=== PATIENT | male | born 1960 | race Caucasian/White ===

== ENCOUNTER 2020-10-03 17:10 | Emergency (ER) | payer OTHER, SELFPAY ==
[2020-10-03] VITALS (17 sets, daily range): BP systolic 89–116; BP diastolic 57–70; PULSE 56–98; RESP 15–24; TEMP 36.8; O2SAT 89–97
--- NOTE | 2020-10-03 17:46 | DI.CT.S_ITS ---
PROCEDURE: CT CHEST ABD PEL W CON INDICATIONS: Trauma TECHNIQUE: After the administration of intravenous contrast, 5 mm thick sections acquired from the lung apices to the symphysis. 2.5 mm thick coronal and sagittal reformats were acquired. Additional 7 mm thick coronal maximum intensity projection (MIP) reformats acquired through the lungs. Optional 10-minute delayed imaging may be performed from the kidneys to the bladder. For radiation dose reduction, the following was used: automated exposure control, adjustment of mA and/or kV according to patient size. COMPARISON: None. FINDINGS: Image quality: Excellent. CHEST: Lungs: Bibasilar atelectasis is present dependently. No pneumothorax or hemothorax. Central and peripheral airways appear patent and normal in caliber. Mediastinum: No mediastinal hematomas. Heart size is normal. No pericardial effusion. Thoracic aorta and pulmonary arteries demonstrate normal size and enhancement. No mediastinal or hilar adenopathy. Esophagus is normal in caliber. No hiatal hernia. Chest wall: No rib fractures. No subcutaneous emphysema. No axillary or supraclavicular adenopathy. Thyroid gland is within normal limits . ABDOMEN: Solid organs: Liver is normal in size and enhancement, without lacerations. Gallbladder is within normal limits. Biliary system is non-dilated. Pancreas enhances normally, without transection. Spleen is normal in size and enhancement, without lacerations. No adrenal hematomas. Bilateral renal cysts. Both kidneys otherwise enhance normally, without hydronephrosis or lacerations. Peritoneum and bowel: No free fluid or air. Unenhanced bowel loops demonstrate normal wall thickness and caliber. Nodes and vessels: No retroperitoneal or mesenteric adenopathy. Aorta and inferior vena cava are normal in size and enhancement. Miscellaneous: No ventral hernias. PELVIS: Genitourinary: Bladder wall thickness is normal. Miscellaneous: No inguinal hernias or adenopathy. Bones: Mildly displaced left sacral fracture. Moderate acute wedging of the L1 vertebral body, associated with right awfully 10 mm of retropulsion at the superior L1 level, and severe canal stenosis, and flattening of the conus medullaris. IMPRESSION: 1. No evidence of soft tissue injury to the chest, abdomen, nor pelvis. 2. Mildly displaced left sacral fracture. 3. Moderate acute compression fracture of L1, associated with retropulsion and severe canal stenosis with cord flattening. Dictated by: Alin Medellin M.D. on 10/03/2020 at 18:39 Approved by: Alin Medellin M.D. on 10/03/2020 at 18:43
--- NOTE | 2020-10-03 17:46 | DI.CT.S_ITS ---
PROCEDURE: CT CERVICAL SPINE WO CON INDICATIONS: Trauma TECHNIQUE: Noncontrast 3 mm thick sections acquired from the skull base to the T4 level. Sagittal and coronal reformats were then constructed. For radiation dose reduction, the following was used: automated exposure control, adjustment of mA and/or kV according to patient size. COMPARISON: None. FINDINGS: Image quality: Excellent. Bones: No fractures or dislocations. Visualized superior ribs are intact. Soft tissues: Prevertebral soft tissues are normal in thickness. No paravertebral hematomas. No apical pneumothoraces. IMPRESSION: No fracture. Dictated by: Alin Medellin M.D. on 10/03/2020 at 18:31 Approved by: Alin Medellin M.D. on 10/03/2020 at 18:33
--- NOTE | 2020-10-03 17:46 | DI.CT.S_ITS ---
PROCEDURE: CT HEAD/BRAIN WO CON INDICATIONS: Trauma TECHNIQUE: Noncontrast 4.5 mm thick angled axial sections acquired from the foramen magnum to the vertex, with coronal and sagittal reformats. For radiation dose reduction, the following was used: automated exposure control, adjustment of mA and/or kV according to patient size. COMPARISON: None. FINDINGS: Image quality: Excellent. CSF spaces: Basal cisterns are patent. No extra-axial fluid collections. The ventricles are symmetric in size and shape. Cavum septum vergae. Brain: No intracranial bleeds or masses. Small chronic left cerebellar infarct. There is cerebral volume loss for age, with resultant ventricular and sulcal prominence. There are periventricular and deep white matter chronic small vessel ischemic changes. There is intracranial internal carotid artery atherosclerosis. Skull and face: Calvarium and visualized facial bones appear intact, without suspicious lesions. Sinuses: Visualized sinuses and mastoids are clear. IMPRESSION: 1. No acute process. 2. Small chronic left cerebellar infarct. Dictated by: Alin Medellin M.D. on 10/03/2020 at 18:30 Approved by: Alin Medellin M.D. on 10/03/2020 at 18:31
[2020-10-03 17:49] LABS: Add Manual Diff / Slide Review NO; Basophils Absolute Auto 0 /uL (0-100); Basophils Percent Auto 0.4 % (0-2); Eosinophils Absolute Auto 0 /uL (0-450); Eosinophils Percent Auto 0.3 % (2-4); Hematocrit 44.3 % (41-53); Lymphocytes Absolute Auto 800 /uL (1100-4500); Lymphocytes Percent Auto 6.4 % (25-40); Mean Corpuscular Hemoglobin 31.4 PG (26-34); Mean Corpuscular Volume 92.3 fL (80-100); Monocytes Absolute Auto 600 /uL (0-900); Monocytes Percent Auto 4.6 % (3-14); Neutrophils Absolute Auto 10600 /uL (1500-7000); Neutrophils Percent Auto 88.3 % (50-75); Platelet Count 163 X10^3/uL (150-400)
[2020-10-03 17:53] LABS: Prothrombin Time 12.1 SECONDS (10.1-12.7)
[2020-10-03 17:56] LABS: PTT Partial Thromboplastin Tim 26 SECONDS (26.4-36.2)
[2020-10-03 17:58] LABS: Alanine Aminotransferase 28 IU/L (<50); Albumin 4.1 g/dL (3.5-5.0); Albumin Globulin Ratio 1.4 (1.0-2.8); Alkaline Phosphatase 73 U/L (38-126); Aspartate Aminotransferase 46 IU/L (17-59); BUN Creatinine Ratio 28.4 (6-22); Bilirubin Total 0.9 mg/dL (0.2-1.3); Blood Urea Nitrogen 23 mg/dL (9-20); Carbon Dioxide 29 mmol/L (22-32); Chloride 102 mmol/L (98-107); Estimated Glomerular Filt Rate > 60.0 mL/min (>60); Globulin 2.9 g/dL (1.7-4.1); Glucose 135 mg/dL (80-110); HEMOLYSIS < 15 (0-50); Lipase 98 U/L (23-300); Potassium 3.7 mmol/L (3.4-5.1); Sodium 135 mmol/L (137-145)
[2020-10-03 17:59] LABS: Lactate (Lactic Acid) 2.1 mmol/L (0.7-2.1)
[2020-10-03 18:03] LABS: Ethanol (ETOH) < 10 mg/dL
--- NOTE | 2020-10-03 18:08 | DI.RAD.S_ITS ---
PROCEDURE: XR FEMUR LT MIN 2V INDICATIONS: fell off roof, pain left hip/femur TECHNIQUE: To views of the femur were acquired. COMPARISON: [facility], CT, CT CHEST ABD PEL W CON, 10/03/2020, 17:47. FINDINGS: Bones: No fractures or dislocations. No suspicious bony lesions. Left knee arthroplasty. Soft tissues: No suspicious soft tissue calcifications or masses. IMPRESSION: No acute fracture. No osseous lesion. If symptoms and/or clinical suspicion for pathology persist, further assessment with repeat, or advanced imaging (e.g., CT, MRI, or bone scan) may be helpful for further assessment. Dictated by: Alin Medellin M.D. on 10/03/2020 at 18:38 Approved by: Alin Medellin M.D. on 10/03/2020 at 18:39
[2020-10-03] MEDS: MORPHINE 4 MG/ML INJ IV ×2 (18:38→20:34)
[2020-10-03] MEDS: ONDANSETRON 4 MG/2 ML INJ IV (18:38)
--- NOTE | 2020-10-03 19:03 | ED_ITS ---
HPI - General Adult General Chief complaint: Trauma Stated complaint: fell off roof Time Seen by Provider: 10/03/20 17:45 Source: patient Mode of arrival: Ambulatory Limitations: no limitations History of Present Illness HPI narrative: Patient is a 60-year-old otherwise healthy male came in by private vehicle after sustaining a fall while on a ladder. He was 1 story off the ground cleaning his gutters when the ladder fell. He stated that he did not hit his head. There was no loss of consciousness. He was unsure exactly how he landed. He was able to ambulate somewhat afterwards but it was very difficult secondary to pain in his left leg in his lower back. He is not on anticoagulation. Has not tried anything for symptoms prior to arrival. Related Data Home Medications Medication Instructions Recorded Confirmed aspirin [Adult Low Dose Aspirin] 81 mg PO QAM 10/03/20 10/03/20 fluoxetine 60 mg PO DAILY 10/03/20 10/03/20 Allergies Allergy/AdvReac Type Severity Reaction Status Date / Time celecoxib Allergy Unknown Verified 10/03/20 18:05 chlorhexidine Allergy Unknown Verified 10/03/20 18:05 Review of Systems Constitutional Constitutional: Denies fatigue, Denies fever(s), Denies frequent falls and Denies headache(s) Eyes Eyes: Denies blurry vision and Denies change in vision ENT Ears, Nose, Mouth, and Throat: Denies vertigo, Denies dizziness, Denies headache(s), Denies neck mass and Denies sore throat Cardiovascular Cardiovascular: Denies chest pain and Denies dyspnea Respiratory Respiratory: Denies cough, Denies pain on inspiration, Denies pain with cough and Denies dyspnea Gastrointestinal Gastrointestinal: Denies abdominal pain, Denies nausea and Denies vomiting Genitourinary Genitourinary: Denies dysuria and Denies testicular pain Genitourinary: Denies dysuria Comments: He did urinate 1 time after the fall prior to arrival Musculoskeletal Musculoskeletal: Reports arthralgias (Left leg pain), Reports back pain, Denies numbness, Denies stiffness and Denies tingling Integumentary/Breasts Skin/Breast: Denies lesions and Denies rash Neurologic Neurologic: Denies behavioral changes, Denies confusion, Denies vertigo, Denies dizziness, Denies frequent falls, Denies headache(s), Denies numbness and Denies tingling Psychiatric Psychiatric: Denies behavioral changes, Denies confusion and Denies depression Endocrine Endocrine: Denies fatigue Hematologic/Lymphatic Hematologic/Lymphatic: Denies easy bleeding and Denies easy bruising Allergic/Immunologic Allergic/Immunologic: Denies urticaria Patient History Medical History Pulmonary embolism (Acute) Social History Smoking Status: Never smoker Smoking Status: Never smoker Exam Initial Vital Signs Initial Vital Signs: Vital Signs Temperature 98.2 F 10/03/20 17:24 Pulse Rate 98 H 10/03/20 17:24 Respiratory Rate 22 10/03/20 17:24 Blood Pressure 109/70 10/03/20 17:24 Pulse Oximetry 97 10/03/20 17:24 Const General: cooperative, well developed and well groomed Limitations: mental status not altered HENMT Head: normal to inspection and normocephalic Ears: hearing grossly normal bilaterally Nose: external nose normal Face and sinus: normal facial exam Eyes Pupils: PERRL Chest Chest: No crepitus and No tenderness Resp Effort & Inspection: normal respiratory effort Auscultation: clear to auscultation bilaterally Cardio Rate: regular rate Rhythm: regular rhythm GI Inspection: non-distended Palpation: soft, No firm and No tender Rectal Exam: normal sphincter tone Penis: normal penis Other: No priapism Back/Spine/Pelvis Cervical Spine: collar present and No cervical spinal tenderness Thoracic/Lumbar Spine: No paraspinal tenderness, No thoracic spinal tenderness and lumbar spinal tenderness Skin Lesions: no lesions Rashes: no rashes Neuro General: patient alert, patient awake and patient oriented x3 Cranial Nerves: CN's II-XI intact bilaterally Cognition: normal cognition Speech: speech normal Sensory Exam: no sensory deficits noted Extrem General: capillary refill normal Psych Appearance: grossly normal and well kempt Scores GCS Wilbur coma scale eye opening: Spontaneous Wilbur coma scale verbal response: Orientated Wilbur coma scale motor response: Obey commands Wilbur coma scale total score: 15 Course Orders Ordered: ED Orders 10/03/20 17:35 Complete Blood Count AUTO DIFF Stat Comprehensive Metabolic Panel Stat Ethanol (ETOH) Stat Lactate (Lactic Acid) Urgent Lipase Stat Partial Thromboplastin Time Stat Prothrombin Time INR Stat Type and Screen Stat 10/03/20 17:37 Urine Drug Screen, Rapid Stat EKG-12 Lead Stat 10/03/20 17:46 CT cervical spine wo con Stat CT chest abd pel w con Stat CT head/brain wo con Stat 10/03/20 18:08 XR femur LT min 2V Stat 10/03/20 19:20 COVID19 -ED/INPAT/OR/L&D Stat Sodium Chloride (Normal Saline 0.9%) 1,000 mls @ 1,000 mls/hr IV BOLUS ONE Stop: 10/03/20 21:01 Last Admin: 10/03/20 20:21 Dose: 1,000 mls/hr Documented by: BRANDAN Discontinued Medications Morphine Sulfate (Morphine) 4 mg IV NOW ONE Stop: 10/03/20 18:01 Last Admin: 10/03/20 18:38 Dose: 4 mg Documented by: BEAR Morphine Sulfate (Morphine) 4 mg IV NOW ONE Stop: 10/03/20 20:22 Last Admin: 10/03/20 20:34 Dose: 4 mg Documented by: BRANDAN Ondansetron HCl (Zofran) 4 mg IV NOW ONE Stop: 10/03/20 18:01 Last Admin: 10/03/20 18:38 Dose: 4 mg Documented by: BEAR Vital Signs Vital signs: Vital Signs - 8 hr 10/03/20 17:24 10/03/20 17:54 10/03/20 18:00 Temperature 98.2 F Pulse Rate 98 H 59 L 58 L Respiratory Rate 22 23 23 Blood Pressure 109/70 116/69 Pulse Oximetry 97 94 91 10/03/20 18:42 10/03/20 18:43 10/03/20 18:45 Temperature Pulse Rate 68 66 64 Respiratory Rate 21 19 16 Blood Pressure 107/61 107/61 105/59 L Pulse Oximetry 91 90 L 89 L 10/03/20 19:00 10/03/20 19:15 10/03/20 19:30 Temperature Pulse Rate 74 62 57 L Respiratory Rate 16 15 18 Blood Pressure 112/66 107/63 99/62 Pulse Oximetry 95 95 94 10/03/20 19:45 10/03/20 20:00 10/03/20 20:01 Temperature Pulse Rate 58 L 56 L 63 Respiratory Rate 17 16 18 Blood Pressure 96/60 89/57 L 106/61 Pulse Oximetry 93 93 94 10/03/20 20:15 10/03/20 20:30 Temperature Pulse Rate 61 61 Respiratory Rate 24 16 Blood Pressure 108/65 102/61 Pulse Oximetry 95 91 Medical Decision Making Medical Records Medical records reviewed: Yes I reviewed the patient's medical records. Lab Data Lab results reviewed: Yes I reviewed the patient's lab results. Result diagrams: 10/03/20 17:35 10/03/20 17:35 Labs: Lab Results 10/03/20 10/03/20 10/03/20 Range/Units 17:35 17:35 17:35 WBC 12.0 H (4.5-11.0) X10^3/uL RBC 4.80 (4.5-5.9) X10^6/uL Hgb 15.0 (13.5-17.5) g/dL Hct 44.3 (41-53) % MCV 92.3 (80-100) fL MCH 31.4 (26-34) PG MCHC 34.0 (30-36) % RDW 14.0 (11.6-14.8) % Plt Count 163 (150-400) X10^3/uL Neut % (Auto) 88.3 H (50-75) % Lymph % (Auto) 6.4 L (25-40) % [place] % (Auto) 4.6 (3-14) % Eos % (Auto) 0.3 L (2-4) % Baso % (Auto) 0.4 (0-2) % Neut # (Auto) 52503 H (3554-6088) /uL Lymph # (Auto) 800 L (8523-9265) /uL [place] # (Auto) 600 (0-900) /uL Eos # (Auto) 0 (0-450) /uL Baso # (Auto) 0 (0-100) /uL PT 12.1 (10.1-12.7) SECONDS INR 1.0 (0.9-1.3) APTT 26 L (26.4-36.2) SECONDS Sodium 135 L (137-145) mmol/L Potassium 3.7 (3.4-5.1) mmol/L Chloride 102 (98-107) mmol/L Carbon Dioxide 29 (22-32) mmol/L BUN 23 H (9-20) mg/dL Creatinine 0.81 (0.66-1.25) mg/dL Estimated GFR > 60.0 (>60) mL/min BUN/Creatinine Ratio 28.4 H (6-22) Glucose 135 H (80-110) mg/dL Lactate (0.7-2.1) mmol/L Calcium 9.0 (8.4-10.2) mg/dL Total Bilirubin 0.9 (0.2-1.3) mg/dL AST 46 (17-59) IU/L ALT 28 (<50) IU/L Alkaline Phosphatase 73 (38-126) U/L Total Protein 7.0 (6.3-8.2) g/dL Albumin 4.1 (3.5-5.0) g/dL Globulin 2.9 (1.7-4.1) g/dL Albumin/Globulin Ratio 1.4 (1.0-2.8) Lipase 98 (23-300) U/L Ethyl Alcohol < 10 ( - 10) mg/dL COVID-19 PCR (Negative) Blood Type Antibody Screen 10/03/20 10/03/20 10/03/20 Range/Units 17:35 17:35 19:20 WBC (4.5-11.0) X10^3/uL RBC (4.5-5.9) X10^6/uL Hgb (13.5-17.5) g/dL Hct (41-53) % MCV (80-100) fL MCH (26-34) PG MCHC (30-36) % RDW (11.6-14.8) % Plt Count (150-400) X10^3/uL Neut % (Auto) (50-75) % Lymph % (Auto) (25-40) % [place] % (Auto) (3-14) % Eos % (Auto) (2-4) % Baso % (Auto) (0-2) % Neut # (Auto) (9563-0222) /uL Lymph # (Auto) (5578-9977) /uL [place] # (Auto) (0-900) /uL Eos # (Auto) (0-450) /uL Baso # (Auto) (0-100) /uL PT (10.1-12.7) SECONDS INR (0.9-1.3) APTT (26.4-36.2) SECONDS Sodium (137-145) mmol/L Potassium (3.4-5.1) mmol/L Chloride (98-107) mmol/L Carbon Dioxide (22-32) mmol/L BUN (9-20) mg/dL Creatinine (0.66-1.25) mg/dL Estimated GFR (>60) mL/min BUN/Creatinine Ratio (6-22) Glucose (80-110) mg/dL Lactate 2.1 (0.7-2.1) mmol/L Calcium (8.4-10.2) mg/dL Total Bilirubin (0.2-1.3) mg/dL AST (17-59) IU/L ALT (<50) IU/L Alkaline Phosphatase (38-126) U/L Total Protein (6.3-8.2) g/dL Albumin (3.5-5.0) g/dL Globulin (1.7-4.1) g/dL Albumin/Globulin Ratio (1.0-2.8) Lipase (23-300) U/L Ethyl Alcohol ( - 10) mg/dL COVID-19 PCR Negative (Negative) Blood Type A Positive Antibody Screen Negative Imaging Data CT - cervical spine: Radiologist's Impression: [place] [address] CT Scan Report Signed Patient: Robert Valentin EMR#: [id number] : 8Acct:[id number] Age/Sex: 60 / MDate of Service: 10/03/20 Loc: ED Accession Number: [id number] Procedure: CT cervical spine wo con Ordering Provider: Millie López D.O. PROCEDURE: CT CERVICAL SPINE WO CON INDICATIONS: Trauma TECHNIQUE: Noncontrast 3 mm thick sections acquired from the skull base to the T4 level. Sagittal and coronal reformats were then constructed. For radiation dose reduction, the following was used: automated exposure control, adjustment of mA and/or kV according to patient size. COMPARISON: None. FINDINGS: Image quality: Excellent. Bones: No fractures or dislocations. Visualized superior ribs are intact. Soft tissues: Prevertebral soft tissues are normal in thickness. No paravertebral hematomas. No apical pneumothoraces. IMPRESSION: No fracture. Dictated by: Alin Medellin M.D. on 10/03/2020 at 18:31 Approved by: Alin Medellin M.D. on 10/03/2020 at 18:33 CT chest abdomen pelvis: Radiologist's Impression: [address] [address] [address] Scan Report Signed Patient: Robert Valentin EMR#: [id number] : 8Acct:[id number] Age/Sex: 60 / MDate of Service: 10/03/20 Loc: ED Accession Number: [id number] Procedure: CT chest abd pel w con Ordering Provider: Millie López D.O. PROCEDURE: CT CHEST ABD PEL W CON INDICATIONS: Trauma TECHNIQUE: After the administration of intravenous contrast, 5 mm thick sections acquired from the lung apices to the symphysis. 2.5 mm thick coronal and sagittal reformats were acquired. Additional 7 mm thick coronal maximum intensity projection (MIP) reformats acquired through the lungs. Optional 10-minute delayed imaging may be performed from the kidneys to the bladder. For radiation dose reduction, the following was used: automated exposure control, adjustment of mA and/or kV according to patient size. COMPARISON: None. FINDINGS: Image quality: Excellent. CHEST: Lungs: Bibasilar atelectasis is present dependently. No pneumothorax or hemothorax. Central and peripheral airways appear patent and normal in caliber. Mediastinum: No mediastinal hematomas. Heart size is normal. No pericardial effusion. Thoracic aorta and pulmonary arteries demonstrate normal size and enhancement. No mediastinal or hilar adenopathy. Esophagus is normal in caliber. No hiatal hernia. Chest wall: No rib fractures. No subcutaneous emphysema. No axillary or supraclavicular adenopathy. Thyroid gland is within normal limits . ABDOMEN: Solid organs: Liver is normal in size and enhancement, without lacerations. Gallbladder is within normal limits. Biliary system is non-dilated. Pancreas enhances normally, without transection. Spleen is normal in size and enhancement, without lacerations. No adrenal hematomas. Bilateral renal cysts. Both kidneys otherwise enhance normally, without hydronephrosis or lacerations. Peritoneum and bowel: No free fluid or air. Unenhanced bowel loops demonstrate normal wall thickness and caliber. Nodes and vessels: No retroperitoneal or mesenteric adenopathy. Aorta and inferior vena cava are normal in size and enhancement. Miscellaneous: No ventral hernias. PELVIS: Genitourinary: Bladder wall thickness is normal. Miscellaneous: No inguinal hernias or adenopathy. Bones: Mildly displaced left sacral fracture. Moderate acute wedging of the L1 vertebral body, associated with right awfully 10 mm of retropulsion at the superior L1 level, and severe canal stenosis, and flattening of the conus medullaris. IMPRESSION: 1. No evidence of soft tissue injury to the chest, abdomen, nor pelvis. 2. Mildly displaced left sacral fracture. 3. Moderate acute compression fracture of L1, associated with retropulsion and severe canal stenosis with cord flattening. Dictated by: Alin Medellin M.D. on 10/03/2020 at 18:39 Approved by: Alin Medellin M.D. on 10/03/2020 at 18:43 CT scan - head: Radiologist's Impression: [address] [address] [address] Scan Report Signed Patient: Robert Valentin EMR#: [id number] : 8Acct:[id number] Age/Sex: 60 / MDate of Service: 10/03/20 Loc: ED Accession Number: [id number] Procedure: CT head/brain wo con Ordering Provider: Millie López D.O. PROCEDURE: CT HEAD/BRAIN WO CON INDICATIONS: Trauma TECHNIQUE: Noncontrast 4.5 mm thick angled axial sections acquired from the foramen magnum to the vertex, with coronal and sagittal reformats. For radiation dose reduction, the following was used: automated exposure control, adjustment of mA and/or kV according to patient size. COMPARISON: None. FINDINGS: Image quality: Excellent. CSF spaces: Basal cisterns are patent. No extra-axial fluid collections. The ventricles are symmetric in size and shape. Cavum septum vergae. Brain: No intracranial bleeds or masses. Small chronic left cerebellar infarct. There is cerebral volume loss for age, with resultant ventricular and sulcal prominence. There are periventricular and deep white matter chronic small vessel ischemic changes. There is intracranial internal carotid artery atherosclerosis. Skull and face: Calvarium and visualized facial bones appear intact, without suspicious lesions. Sinuses: Visualized sinuses and mastoids are clear. IMPRESSION: 1. No acute process. 2. Small chronic left cerebellar infarct. Dictated by: Alin Medellin M.D. on 10/03/2020 at 18:30 Approved by: Alin Medellin M.D. on 10/03/2020 at 18:31 Extremity x-ray #1: Radiologist's Impression: [address] [address] XRay Report Signed Patient: Robert Valentin EMR#: [id number] : 8Acct:[id number] Age/Sex: 60 / MDate of Service: 10/03/20 Loc: ED Accession Number: [id number] Procedure: XR femur LT min 2V Ordering Provider: Millie López D.O. PROCEDURE: XR FEMUR LT MIN 2V INDICATIONS: fell off roof, pain left hip/femur TECHNIQUE: To views of the femur were acquired. COMPARISON: [facility], CT, CT CHEST ABD PEL W CON, 10/03/2020, 17:47. FINDINGS: Bones: No fractures or dislocations. No suspicious bony lesions. Left knee arthroplasty. Soft tissues: No suspicious soft tissue calcifications or masses. IMPRESSION: No acute fracture. No osseous lesion. If symptoms and/or clinical suspicion for pathology persist, further assessment with repeat, or advanced imaging (e.g., CT, MRI, or bone scan) may be helpful for further assessment. Dictated by: Alin Medellin M.D. on 10/03/2020 at 18:38 Approved by: Alin Medellin M.D. on 10/03/2020 at 18:39 ECG Data Attestation: I personally reviewed and interpreted this ECG as follows: Prior ECG tracings: not available for review Interpretation: Sinus bradycardia Ventricular rate of 50 Normal axis Normal QRS Normal QTC No ST T wave changes MDM Narrative Medical decision making narrative: Modified trauma call secondary to mechanism upon arrival. Patient is alert and oriented x3. Was placed in a cervical collar upon arrival. Head CT and C-spine unremarkable. He has no chest tenderness. The CT of his chest and abdomen are unremarkable however on the pelvis CT he has an L1 burst fracture with retropulsion and compression of the spinal cord. He also has a left sacral fracture. His left femur x-ray is unremarkable. Neurologically he is intact. He can feel to light touch to bilateral lower extremities and can flex and extend at his knees and ankles. 5/5 strength bilateral lower extremity. He did urinate 1 time after the incident prior to arrival here in the ER. He states that he does not feel like he needs to urinate now. Bladder scan has just over 200 cc of urine in his bladder. He has no abdominal tenderness. Normal rectal tone. Discussed the case with Dr. NICHOLE with Orthopedics at our facility who recommended given his injuries that he be transferred to Trauma facility. Patient is [facility]. We discussed the case with [facility] who approved us contacting [facility]. I discussed the case with with the Trauma Service who accepted the patient and recommended that we send the patient through the emergency department. I then discussed the case with Dr. Valentin at the emergency department to also accepted the patient. I did discuss the findings on the CT scans with the patient and the need for transfer with the patient. He expressed understanding. The patient is stable for transport. Critical Care Time Critical Care Time Critical Care Time: Yes Total Critical Care Time: 40 Attestation: The high probability of a clinically significant, sudden or life threatening deterioration of the orthopedic, neurologic system(s) required my full and direct attention, intervention and personal management. The aggregate critical care time was [40 minutes. This time is in addition to time spent performing reported procedures but includes the following: [x] Data Review and interpretation [x] Patient assessment and monitoring of vital signs [x] Documentation [x] Medication orders and management Discharge Plan Departure Patient Disposition: [facility] Clinical Impression: Fall from ladder Qualifiers: Encounter type: initial encounter Qualified Code(s): W11.XXXA - Fall on and from ladder, initial encounter Closed sacral fracture Qualifiers: Encounter type: initial encounter Fracture alignment: minimally displaced Spinal compression fracture Qualifiers: Encounter type: initial encounter Fracture of vertebra location: lumbar Lumbar vertebra fracture level: L1 Qualified Code(s): S32.010A - Wedge compression fracture of first lumbar vertebra, initial encounter for closed fracture Prescriptions: No Action aspirin [Adult Low Dose Aspirin] 81 mg Tablet,Delayed Release (Dr/Ec) 81 mg PO QAM RF: 0 fluoxetine 20 mg capsule 60 mg PO DAILY RF: 0 Referrals: Bishnu Martinez MD [Primary Care Provider] -
[2020-10-03 19:43] LABS: Reflexed Lactate in 2 Hours Y
[2020-10-03 19:53] LABS: COVID19 -Nasal RAPID Negative (Negative)
[2020-10-03] MEDS: SODIUM CHLORIDE 0.9% 1,000 ML 1000 ML IV (20:21)
== END 2020-10-03 21:29 | disposition short-term general hospital (02) ==
PROVIDERS: Emergency Medicine; Emergency Provider Emergency Medicine; Family Provider Family Medicine Sports Medicine; PCP Family Medicine Sports Medicine
DX: S32.010A Wedge compression fracture of first lumbar vertebra, initial encounter for closed fracture (principal); S32.10XA Unspecified fracture of sacrum, initial encounter for closed fracture; M25.552 Pain in left hip; W11.XXXA Fall on and from ladder, initial encounter
CPT/HCPCS: 36415; 51798; 70450; 71260; 72125; 73552; 74177; 80053; 80320; 83605; 83690; 85025; 85610; 85730; 86850; 86900; 86901; 87635; 93005; 96361; 96374; 96375; 96376; 99285; 99291; J2270; J2405; Q9967

== ENCOUNTER 2021-02-07 08:15 | Outpatient (RCR) | payer OTHER, SELFPAY ==
--- NOTE | 2020-12-27 13:28 | PT.OIE ---
Current Diagnoses Unspecified fracture of sacrum, initial encounter for closed fracture (12/27/20) Past Medical History (Last Reviewed 10/03/20 @ 21:00 by Anthony Ridley DO) Pulmonary embolism Visit Care Team Role Provider Type Other Providers Specialty: Address: Phone: Fax: Email: Other Providers Specialty: Address: Phone: Fax: Email: Danish Medina MD Family Provider Non-Staff Primary Care Provider Specialty: Family Practice Address: [address] [place] [address], [facility] Email: Aurelia Sorto PA-C Attending Provider Non-Staff Referring Provider Specialty: General Surgery Address: [address] [place] [address], [address], [place], [address] Email: Physical Therapy Initial Evaluation PT-OP-A Visit Information Start: 12/26/20 13:24 Freq: Status: Active Protocol: Document 12/27/20 07:31 MB (Rec: 12/27/20 07:56 MB [id number]) Out-Patient Physical Therapy Visit Information Visit Information Visit Type Initial Evaluation Visit Note Whitney, copay $45, 25 visits Visit Start Time 07:31 Visit Stop Time 08:15 Total Visit Minutes 44 Visit Number 12/26 Evaluation Information Evaluation Date 12/27/20 Precautions Precautions Pt s/p sacral fracture, was allowed 50% WB 10 weeks post- op and 100% 12 weeks--surgery was 10/07/2020, L1 compression fracture PT-OP-B Current Condition Start: 12/26/20 13:24 Freq: Status: Active Protocol: Document 12/27/20 07:31 MB (Rec: 12/27/20 07:56 MB [id number]) Current Condition History of Current Condition Onset Date 10/03/21 Current Complaints Right sided LBP near kidney with lying flat History of Current Condition Pt fell off roof when cleaning roof 10/03/2020 and landed flat on concrete. He was found to have sacral fracture, no head injury and chronic left cerebellar infarct, L1 compression fracture, severe canal stenosis and cord flattening. Pt reports that he passed out and thinks he had a concussion. Pt states that he had a pin and loc in L1-2 and then two screws in left side of sacrum on 10/07/21. Pt states that he has been full WB LLE this week (he is not quite 12 weeks post-op). He reports pain 10/ 10 pain right LB near kidney everyday when he lies down. It lasts a few seconds. 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 Pt has been walking up to 5 miles for exercise. He started with walking sticks and has progressed without and has progressed to walking up [place]. Pt is sleeping on his back and using cervical support. He is using oxycodone after some long walks a few days a week. He feels tight after walks. Pt denies paresthesias. Pt feels that his residual is d/t the rods. Prior Treatments and Tests PT for B TKRs Treatment Goals Patient/Caregiver Goals To get back to where I was. Pt would like to get back to biking in the summer, road biking. PT-OP-C Subjective Start: 12/26/20 13:24 Freq: Status: Active Protocol: Document 12/27/20 07:31 MB (Rec: 12/27/20 07:56 MB [id number]) OP-PT Subjective Patient Comments Patient Comments See history of current condition. 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 Pt reports he cannot walk without socks on d/t plantar foot pain. PT-OP-J Posture/Palpation/Skin Start: 12/26/20 13:24 Freq: Status: Active Protocol: Document 12/27/20 07:31 MB (Rec: 12/27/20 13:27 MB [id number]) Posture Evaluation Comments Posture Comments Standing posture: forward head , rounded shoulders, Dowager's hump, decreased thoracic kyphosis and lumbar lordosis with flattening down to the sacrum. Pt with three scars on both sides of the spine L1-L3 area. Right iliac crest is higher than the left and pt with increased tension right QL. Limited ankle DF B after foot surgeries. B rapid passive DF negative for clonus . PT-OP-K Range of Motion Start: 12/26/20 13:24 Freq: Status: Active Protocol: Document 12/27/20 07:31 MB (Rec: 12/27/20 13:27 MB [id number]) Knee Goniometric Range of Motion Knee ROM Limitations Comments Left knee flexion limited in hook lying with hip flexed--no greater than 90 deg B passive SLR to 60 deg before pt flexes knee PT-OP-M Strength Start: 12/26/20 13:24 Freq: Status: Active Protocol: Document 12/27/20 07:31 MB (Rec: 12/27/20 13:27 MB [id number]) Hip Strength Hip Manual Muscle Testing Left Flexion (L2) 5 Normal Extension (S1) 4 Good Abduction 5 Normal Comments Hip extension creates LB/ sacral pain Right Flexion (L2) 5 Normal Extension (S1) 4 Good Abduction 5 Normal Comments Hip extension creates LB/ sacral pain Knee Strength Knee Manual Muscle Testing Left Flexion (S2) 5 Normal Extension (L3) 5 Normal Comments Knee flexion in limited range Right Flexion (S2) 5 Normal Extension (L3) 5 Normal Ankle/Foot Strength Ankle and Foot Manual Muscle Testing Left Dorsiflexion (L4) 5 Normal Comments In limited AROM Right Dorsiflexion (L4) 5 Normal Comments In limited AROM PT-OP-T Assessment and Plan Start: 12/26/20 13:24 Freq: Status: Active Protocol: Document 12/27/20 07:31 MB (Rec: 12/27/20 13:27 MB [id number]) Physical Therapy Assessment Rehab Potential Rehabilitation Potential Good Evaluation Complexity Number of Personal Factors/Comorbidities 1-2 Number of Body Systems Impaired 1-2 Clinical Presentation at Evaluation Stable Impairments Impairments Activity Tolerance,Balance, Gait,Pain,Posture,ROM,Soft Tissue Mobility,Strength Other Impairments Pt denies paresthesias in his legs Goals 3 Tin Pourer Goal (LTG) Pt will perform progressive HEP with I including pelvic realignment, postural, core, flexibility, strengthening and balance exercises to improve pain and flexibility by 2020. LTG Duration 8 weeks 2 Tin Pourer Goal (LTG) Pt will perform WNLs on a standardized balance test to decrease fall risk by 2020. LTG Duration 8 weeks 1 Detention Goal (LTG) Pt will report a 75% improvement in LB/sacral pain to improve overall quality of life by 02/24/2021. LTG Duration 8 weeks Assessment Summary Assessment Pt is a 60 y/o male presenting with postural changes, pelvic obliquities, myofascial tightness, decreased strength and flexibility s/p fall off roof 10/03/2020, sacral and lumbar fractures s/p surgeries with instrumentation. Per order, pt should progress to FWB (pt reports on his left leg) 12 weeks post-op. Surgery was 10/07/2020. He is not quite 12 weeks post-op and he has been out hiking/walking for exercise for 3 weeks. He did start with walking sticks and has progressed to no AD. He reports pain after strenous days and is taking 1/2 pill oxycodone as prescribed to stay on top of the pain. He would like to get back to road biking. 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 Barriers to PT include pt schedule and his reports of activity not matching WB restrictions. Physical Therapy Plan Frequency and Duration Frequency of Treatment 1x/Week Duration of Treatment 8 weeks Plan of Care Start Date 12/27/20 Plan of Care End Date 02/24/21 Therapeutic Interventions Therapeutic Interventions Balance Training,Canalithic Repositioning,Gait Training, Home Exercise Program,Joint Mobilizations,Manual Therapy, Neuromuscular Re-education, Patient/Caregiver Education, Self-Care/Home Management,Soft Tissue Mobilization,Taping, Therapeutic Exercises Modalities Cold Pack/Ice Massage,Electric Stimulation,Hot Packs, Ultrasound Next Visit Focus/Plan Next Note Type Treatment Note Next Visit Plan Pelvic realignment exercises, Abram and hamstring stretches
--- NOTE | 2020-12-27 13:28 | PT.OPPOC ---
Physical, Occupational & Speech Therapy At [facility] Current Diagnoses Unspecified fracture of sacrum, initial encounter for closed fracture (12/27/20) Visit Care Team Role Provider Type Other Providers Specialty: Address: Phone: Fax: Email: Other Providers Specialty: Address: Phone: Fax: Email: Danish Medina MD Family Provider Non-Staff Primary Care Provider Specialty: Family Practice Address: [place], [place], [facility] Email: Aurelia Sorto PA-C Attending Provider Non-Staff Referring Provider Specialty: General Surgery Address: [address] [place] [address], [address], [place], [address] Email: Plan Of Care PT-OP-T Assessment and Plan Start: 12/26/20 13:24 Freq: Status: Active Protocol: Document 12/27/20 07:31 MB (Rec: 12/27/20 13:27 MB [id number]) Physical Therapy Assessment Rehab Potential Rehabilitation Potential Good Evaluation Complexity Number of Personal Factors/Comorbidities 1-2 Number of Body Systems Impaired 1-2 Clinical Presentation at Evaluation Stable Impairments Impairments Activity Tolerance,Balance, Gait,Pain,Posture,ROM,Soft Tissue Mobility,Strength Other Impairments Pt denies paresthesias in his legs Goals 3 Retirement Goal (LTG) Pt will perform progressive HEP with I including pelvic realignment, postural, core, flexibility, strengthening and balance exercises to improve pain and flexibility by 2020. LTG Duration 8 weeks 2 Retirement Goal (LTG) Pt will perform WNLs on a standardized balance test to decrease fall risk by 2020. LTG Duration 8 weeks 1 Sericulture Teacher Goal (LTG) Pt will report a 75% improvement in LB/sacral pain to improve overall quality of life by 02/24/2021. LTG Duration 8 weeks Assessment Summary Assessment Pt is a 60 y/o male presenting with postural changes, pelvic obliquities, myofascial tightness, decreased strength and flexibility s/p fall off roof 10/03/2020, sacral and lumbar fractures s/p surgeries with instrumentation. Per order, pt should progress to FWB (pt reports on his left leg) 12 weeks post-op. Surgery was 10/07/2020. He is not quite 12 weeks post-op and he has been out hiking/walking for exercise for 3 weeks. He did start with walking sticks and has progressed to no AD. He reports pain after strenous days and is taking 1/2 pill oxycodone as prescribed to stay on top of the pain. He would like to get back to road biking. 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 Barriers to PT include pt schedule and his reports of activity not matching WB restrictions. Physical Therapy Plan Frequency and Duration Frequency of Treatment 1x/Week Duration of Treatment 8 weeks Plan of Care Start Date 12/27/20 Plan of Care End Date 02/24/21 Therapeutic Interventions Therapeutic Interventions Balance Training,Canalithic Repositioning,Gait Training, Home Exercise Program,Joint Mobilizations,Manual Therapy, Neuromuscular Re-education, Patient/Caregiver Education, Self-Care/Home Management,Soft Tissue Mobilization,Taping, Therapeutic Exercises Modalities Cold Pack/Ice Massage,Electric Stimulation,Hot Packs, Ultrasound Next Visit Focus/Plan Next Note Type Treatment Note Next Visit Plan Pelvic realignment exercises, Abram and hamstring stretches Plan of Care Dates Plan of Care Start Date 12/27/20 Plan of Care End Date 02/24/21 Electronically Signed by: Deisi Hargrove PT 12/27/20 0032 Please Sign and Return: I have reviewed this Plan of Care and certify that the skilled therapy services above are required to meet the patient?s needs. Physician Signature Date Printed Name and Credentials Clinical Instructor Signature Printed Name and Credentials
--- NOTE | 2020-12-30 15:45 | PT.OTN ---
Current Diagnoses Unspecified fracture of sacrum, initial encounter for closed fracture (12/30/20) Physical Therapy Treatment Note PT-OP-A Visit Information Start: 12/26/20 13:24 Freq: Status: Active Protocol: Document 12/30/20 13:02 MB (Rec: 12/30/20 13:44 MB [id number]) Out-Patient Physical Therapy Visit Information Visit Information Visit Type Treatment Note Visit Note Devonte copay $45, 25 visits Visit Start Time 13:02 Visit Stop Time 13:45 Total Visit Minutes 43 Visit Number 01/26 Precautions Precautions Pt s/p sacral fracture, was allowed 50% WB 10 weeks post- op and 100% 12 weeks--surgery was 10/07/2020, L1 compression fracture PT-OP-B Current Condition Start: 12/26/20 13:24 Freq: Status: Active Protocol: Document 12/27/20 07:31 MB (Rec: 12/27/20 07:56 MB [id number]) Current Condition History of Current Condition Onset Date 10/03/21 Current Complaints Right sided LBP near kidney with lying flat History of Current Condition Pt fell off roof when cleaning roof 10/03/2020 and landed flat on concrete. He was found to have sacral fracture, no head injury and chronic left cerebellar infarct, L1 compression fracture, severe canal stenosis and cord flattening. Pt reports that he passed out and thinks he had a concussion. Pt states that he had a pin and loc in L1-2 and then two screws in left side of sacrum on 10/07/21. Pt states that he has been full WB LLE this week (he is not quite 12 weeks post-op). He reports pain 10/ 10 pain right LB near kidney everyday when he lies down. It lasts a few seconds. 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 Pt has been walking up to 5 miles for exercise. He started with walking sticks and has progressed without and has progressed to walking up [facility]. Pt is sleeping on his back and using cervical support. He is using oxycodone after some long walks a few days a week. He feels tight after walks. Pt denies paresthesias. Pt feels that his residual is d/t the rods. Prior Treatments and Tests PT for B TKRs Treatment Goals Patient/Caregiver Goals To get back to where I was. Pt would like to get back to biking in the summer, road biking. PT-OP-C Subjective Start: 12/26/20 13:24 Freq: Status: Active Protocol: Document 12/30/20 13:02 MB (Rec: 12/30/20 13:44 MB [id number]) OP-PT Subjective Patient Comments Patient Comments Pt states that he has the point tenderness on his right side near his kidney. Pt reports popping and 10/10 pain when lying down today. 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 Pt reports he cannot walk without socks on d/t plantar foot pain. PT-OP-J Posture/Palpation/Skin Start: 12/26/20 13:24 Freq: Status: Active Protocol: Document 12/27/20 07:31 MB (Rec: 12/27/20 13:27 MB [id number]) Posture Evaluation Comments Posture Comments Standing posture: forward head , rounded shoulders, Dowager's hump, decreased thoracic kyphosis and lumbar lordosis with flattening down to the sacrum. Pt with three scars on both sides of the spine L1-L3 area. Right iliac crest is higher than the left and pt with increased tension right QL. Limited ankle DF B after foot surgeries. B rapid passive DF negative for clonus . PT-OP-K Range of Motion Start: 12/26/20 13:24 Freq: Status: Active Protocol: Document 12/27/20 07:31 MB (Rec: 12/27/20 13:27 MB [id number]) Knee Goniometric Range of Motion Knee ROM Limitations Comments Left knee flexion limited in hook lying with hip flexed--no greater than 90 deg B passive SLR to 60 deg before pt flexes knee PT-OP-M Strength Start: 12/26/20 13:24 Freq: Status: Active Protocol: Document 12/27/20 07:31 MB (Rec: 12/27/20 13:27 MB [id number]) Hip Strength Hip Manual Muscle Testing Left Flexion (L2) 5 Normal Extension (S1) 4 Good Abduction 5 Normal Comments Hip extension creates LB/ sacral pain Right Flexion (L2) 5 Normal Extension (S1) 4 Good Abduction 5 Normal Comments Hip extension creates LB/ sacral pain Knee Strength Knee Manual Muscle Testing Left Flexion (S2) 5 Normal Extension (L3) 5 Normal Comments Knee flexion in limited range Right Flexion (S2) 5 Normal Extension (L3) 5 Normal Ankle/Foot Strength Ankle and Foot Manual Muscle Testing Left Dorsiflexion (L4) 5 Normal Comments In limited AROM Right Dorsiflexion (L4) 5 Normal Comments In limited AROM PT-OP-Q Treatments Start: 12/26/20 13:24 Freq: Status: Active Protocol: Document 12/30/20 13:02 MB (Rec: 12/30/20 13:44 MB [id number]) Therapeutic Exercises Supine Exercises Log rolling technique Comments Performed several times to protect back Hamstring stretch Side bilateral Comments APs with each exercises Abram stretch Side bilateral Comments 30 sec hold, abdomimal drawing in first Pelvic realignment exercises Comments 5 reps, 3 sec hold Standing Exercises Thoracic mobility gently with kids ball Comments Gentle against the wall Self-Care/Home Management Treatment Education Other Education Importance of log rolling, being gentle with pelvic realignment exercises, noticing any change in right sided pain and popping, benefits of seeing pelvic floor PT for testicular complaints, brief description of sacral plexus, benefits of Counterstrain and provided educational handout PT-OP-T Assessment and Plan Start: 12/26/20 13:24 Freq: Status: Active Protocol: Document 12/30/20 13:02 MB (Rec: 12/30/20 13:44 MB [id number]) Physical Therapy Assessment Rehab Potential Rehabilitation Potential Good Evaluation Complexity Number of Personal Factors/Comorbidities 1-2 Number of Body Systems Impaired 1-2 Clinical Presentation at Evaluation Stable Impairments Impairments Activity Tolerance,Balance, Gait,Pain,Posture,ROM,Soft Tissue Mobility,Strength Other Impairments Pt denies paresthesias in his legs Goals 3 Longterm Goal (LTG) Pt will perform progressive HEP with I including pelvic realignment, postural, core, flexibility, strengthening and balance exercises to improve pain and flexibility by 2020. LTG Duration 8 weeks 2 Book Reviewer Goal (LTG) Pt will perform WNLs on a standardized balance test to decrease fall risk by 2020. LTG Duration 8 weeks 1 Longterm Goal (LTG) Pt will report a 75% improvement in LB/sacral pain to improve overall quality of life by 02/24/2021. LTG Duration 8 weeks Assessment Summary Assessment Pt's right sided sharp, popping pain occurs today with moving from long sitting to supine. Ed pt to start performing log rolling technique to stop adding so much pressure to LB with bed transitioning. Popping is lateral L5 area and pt reports instrumentation in the area. It is possible that there is a post-surgical change in the area and/or fascial change that contributes to pressure building up with extension/ long walks and then releases with moving from long sitting to supine. He does have a mild pop in the same area with third pelvic realignment exercise that is matched pressure hamstring isometric. Educated pt to perform carefully and not to pain and to ice at home. He reports testicular discomfort at the end of the day and after long walks and PT recommends that he sees a pelvic floor PT here and some appointments set up. PT ed pt that there is sacral nerve contribution to testicular area and this and the pelvic floor are contributing to symptoms. Initiate Counterstrain in future treatment dates. Physical Therapy Plan Frequency and Duration Frequency of Treatment 2x/Week Duration of Treatment 8 weeks Plan of Care Start Date 12/30/20 Plan of Care End Date 02/24/21 Therapeutic Interventions Therapeutic Interventions Balance Training,Canalithic Repositioning,Gait Training, Home Exercise Program,Joint Mobilizations,Manual Therapy, Neuromuscular Re-education, Patient/Caregiver Education, Self-Care/Home Management,Soft Tissue Mobilization,Taping, Therapeutic Exercises Modalities Cold Pack/Ice Massage,Electric Stimulation,Hot Packs, Ultrasound Other Referrals/Consults Referrals/Consults Recommended Follow-up with surgeon about catching and popping when lying down, 10/10 pain that occurs, pt to see pelvic floor PT at this clinic in conjunction with this PT Next Visit Focus/Plan Next Note Type Treatment Note Next Visit Plan Initiate Counterstrain and fascial release, pt to receive some treatments with pelvic slot floor attendant PT as well
--- NOTE | 2021-01-02 14:06 | PT.OTN ---
Current Diagnoses Unspecified fracture of sacrum, initial encounter for closed fracture (01/02/21) Physical Therapy Treatment Note PT-OP-A Visit Information Start: 12/26/20 13:24 Freq: Status: Active Protocol: Document 01/02/21 13:03 MB (Rec: 01/02/21 14:06 MB [id number]) Out-Patient Physical Therapy Visit Information Visit Information Visit Type Treatment Note Visit Note Devonte, copay $45, 25 visits Visit Start Time 13:03 Visit Stop Time 14:03 Total Visit Minutes 60 Visit Number 02/23 Precautions Precautions Pt s/p sacral fracture, was allowed 50% WB 10 weeks post- op and 100% 12 weeks--surgery was 10/07/2020, L1 compression fracture PT-OP-B Current Condition Start: 12/26/20 13:24 Freq: Status: Active Protocol: Document 12/27/20 07:31 MB (Rec: 12/27/20 07:56 MB [id number]) Current Condition History of Current Condition Onset Date 10/03/21 Current Complaints Right sided LBP near kidney with lying flat History of Current Condition Pt fell off roof when cleaning roof 10/03/2020 and landed flat on concrete. He was found to have sacral fracture, no head injury and chronic left cerebellar infarct, L1 compression fracture, severe canal stenosis and cord flattening. Pt reports that he passed out and thinks he had a concussion. Pt states that he had a pin and loc in L1-2 and then two screws in left side of sacrum on 10/07/21. Pt states that he has been full WB LLE this week (he is not quite 12 weeks post-op). He reports pain 10/ 10 pain right LB near kidney everyday when he lies down. It lasts a few seconds. 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 Pt has been walking up to 5 miles for exercise. He started with walking sticks and has progressed without and has progressed to walking up [facility]. Pt is sleeping on his back and using cervical support. He is using oxycodone after some long walks a few days a week. He feels tight after walks. Pt denies paresthesias. Pt feels that his residual is d/t the rods. Prior Treatments and Tests PT for B TKRs Treatment Goals Patient/Caregiver Goals To get back to where I was. Pt would like to get back to biking in the summer, road biking. PT-OP-C Subjective Start: 12/26/20 13:24 Freq: Status: Active Protocol: Document 01/02/21 13:03 MB (Rec: 01/02/21 14:06 MB [id number]) OP-PT Subjective Patient Comments Patient Comments Pt states that the sharp popping decreased to 2.5 out of 5x. He has more constant right SI and anterior hip pain . 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 Pt reports he cannot walk without socks on d/t plantar foot pain. PT-OP-J Posture/Palpation/Skin Start: 12/26/20 13:24 Freq: Status: Active Protocol: Document 12/27/20 07:31 MB (Rec: 12/27/20 13:27 MB [id number]) Posture Evaluation Comments Posture Comments Standing posture: forward head , rounded shoulders, Dowager's hump, decreased thoracic kyphosis and lumbar lordosis with flattening down to the sacrum. Pt with three scars on both sides of the spine L1-L3 area. Right iliac crest is higher than the left and pt with increased tension right QL. Limited ankle DF B after foot surgeries. B rapid passive DF negative for clonus . PT-OP-K Range of Motion Start: 12/26/20 13:24 Freq: Status: Active Protocol: Document 12/27/20 07:31 MB (Rec: 12/27/20 13:27 MB [id number]) Knee Goniometric Range of Motion Knee ROM Limitations Comments Left knee flexion limited in hook lying with hip flexed--no greater than 90 deg B passive SLR to 60 deg before pt flexes knee PT-OP-M Strength Start: 12/26/20 13:24 Freq: Status: Active Protocol: Document 12/27/20 07:31 MB (Rec: 12/27/20 13:27 MB [id number]) Hip Strength Hip Manual Muscle Testing Left Flexion (L2) 5 Normal Extension (S1) 4 Good Abduction 5 Normal Comments Hip extension creates LB/ sacral pain Right Flexion (L2) 5 Normal Extension (S1) 4 Good Abduction 5 Normal Comments Hip extension creates LB/ sacral pain Knee Strength Knee Manual Muscle Testing Left Flexion (S2) 5 Normal Extension (L3) 5 Normal Comments Knee flexion in limited range Right Flexion (S2) 5 Normal Extension (L3) 5 Normal Ankle/Foot Strength Ankle and Foot Manual Muscle Testing Left Dorsiflexion (L4) 5 Normal Comments In limited AROM Right Dorsiflexion (L4) 5 Normal Comments In limited AROM PT-OP-Q Treatments Start: 12/26/20 13:24 Freq: Status: Active Protocol: Document 01/02/21 13:03 MB (Rec: 01/02/21 14:06 MB [id number]) Manual Therapy Treatment Other Other Manual Treatments Pt agrees to Counterstrain to assess and treat fascial tension. Pt presents with tension in the following systems: mesentery visceral on the right, anterior somatic right UE and LE, sympathetics below T8. PT treats stacks in mesentery visceral and cervical disks. Pt responds well. PT-OP-T Assessment and Plan Start: 12/26/20 13:24 Freq: Status: Active Protocol: Document 01/02/21 13:03 MB (Rec: 01/02/21 14:06 MB [id number]) Physical Therapy Assessment Rehab Potential Rehabilitation Potential Good Evaluation Complexity Number of Personal Factors/Comorbidities 1-2 Number of Body Systems Impaired 1-2 Clinical Presentation at Evaluation Stable Impairments Impairments Activity Tolerance,Balance, Gait,Pain,Posture,ROM,Soft Tissue Mobility,Strength Other Impairments Pt denies paresthesias in his legs Goals 3 Collar Closer Lockstitch Goal (LTG) Pt will perform progressive HEP with I including pelvic realignment, postural, core, flexibility, strengthening and balance exercises to improve pain and flexibility by 2020. LTG Duration 8 weeks 2 Collar Closer Lockstitch Goal (LTG) Pt will perform WNLs on a standardized balance test to decrease fall risk by 2020. LTG Duration 8 weeks 1 Collar Closer Lockstitch Goal (LTG) Pt will report a 75% improvement in LB/sacral pain to improve overall quality of life by 02/24/2021. LTG Duration 8 weeks Assessment Summary Assessment Initiated Counterstrain today and will monitor responses. Pt to follow-up with surgeon about more constant pain. PT is in agreement with this. Physical Therapy Plan Frequency and Duration Frequency of Treatment 2x/Week Duration of Treatment 8 weeks Plan of Care Start Date 12/30/20 Plan of Care End Date 02/24/21 Therapeutic Interventions Therapeutic Interventions Balance Training,Canalithic Repositioning,Gait Training, Home Exercise Program,Joint Mobilizations,Manual Therapy, Neuromuscular Re-education, Patient/Caregiver Education, Self-Care/Home Management,Soft Tissue Mobilization,Taping, Therapeutic Exercises Modalities Cold Pack/Ice Massage,Electric Stimulation,Hot Packs, Ultrasound Other Referrals/Consults Referrals/Consults Recommended Follow-up with surgeon about catching and popping when lying down, 10/10 pain that occurs, pt to see pelvic floor PT at this clinic in conjunction with this PT Next Visit Focus/Plan Next Note Type Treatment Note Next Visit Plan Hamstring and calf stretches and use of racquet ball for self-massage. Consider gentle hip flexor stretch. Initiate Counterstrain and fascial release, pt to receive some treatments with pelvic flooring machine operator PT as well
--- NOTE | 2021-01-06 15:06 | PT.OTN ---
Current Diagnoses Unspecified fracture of sacrum, initial encounter for closed fracture (01/06/21) Physical Therapy Treatment Note PT-OP-A Visit Information Start: 12/26/20 13:24 Freq: Status: Active Protocol: Document 01/06/21 13:45 MB (Rec: 01/06/21 14:41 MB [id number]) Out-Patient Physical Therapy Visit Information Visit Information Visit Type Treatment Note Visit Note Devonte, copay $45, 25 visits Pt goes by Pato Visit Start Time 13:45 Visit Stop Time 14:30 Total Visit Minutes 45 Visit Number 03/26 Precautions Precautions Pt s/p sacral fracture, was allowed 50% WB 10 weeks post- op and 100% 12 weeks--surgery was 10/07/2020, L1 compression fracture PT-OP-B Current Condition Start: 12/26/20 13:24 Freq: Status: Active Protocol: Document 12/27/20 07:31 MB (Rec: 12/27/20 07:56 MB [id number]) Current Condition History of Current Condition Onset Date 10/03/21 Current Complaints Right sided LBP near kidney with lying flat History of Current Condition Pt fell off roof when cleaning roof 10/03/2020 and landed flat on concrete. He was found to have sacral fracture, no head injury and chronic left cerebellar infarct, L1 compression fracture, severe canal stenosis and cord flattening. Pt reports that he passed out and thinks he had a concussion. Pt states that he had a pin and loc in L1-2 and then two screws in left side of sacrum on 10/07/21. Pt states that he has been full WB LLE this week (he is not quite 12 weeks post-op). He reports pain 10/ 10 pain right LB near kidney everyday when he lies down. It lasts a few seconds. 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 Pt has been walking up to 5 miles for exercise. He started with walking sticks and has progressed without and has progressed to walking up [facility]. Pt is sleeping on his back and using cervical support. He is using oxycodone after some long walks a few days a week. He feels tight after walks. Pt denies paresthesias. Pt feels that his residual is d/t the rods. Prior Treatments and Tests PT for B TKRs Treatment Goals Patient/Caregiver Goals To get back to where I was. Pt would like to get back to biking in the summer, road biking. PT-OP-C Subjective Start: 12/26/20 13:24 Freq: Status: Active Protocol: Document 01/06/21 13:45 MB (Rec: 01/06/21 14:41 MB [id number]) OP-PT Subjective Patient Comments Patient Comments Pt reports that the popping at his SI joint is less when lying down. He went to [facility] on Saturday to get x-rays. These were orders already put in by [facility], spinal surgeon. 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 Pt reports he cannot walk without socks on d/t plantar foot pain. PT-OP-J Posture/Palpation/Skin Start: 12/26/20 13:24 Freq: Status: Active Protocol: Document 12/27/20 07:31 MB (Rec: 12/27/20 13:27 MB [id number]) Posture Evaluation Comments Posture Comments Standing posture: forward head , rounded shoulders, Dowager's hump, decreased thoracic kyphosis and lumbar lordosis with flattening down to the sacrum. Pt with three scars on both sides of the spine L1-L3 area. Right iliac crest is higher than the left and pt with increased tension right QL. Limited ankle DF B after foot surgeries. B rapid passive DF negative for clonus . PT-OP-K Range of Motion Start: 12/26/20 13:24 Freq: Status: Active Protocol: Document 12/27/20 07:31 MB (Rec: 12/27/20 13:27 MB [id number]) Knee Goniometric Range of Motion Knee ROM Limitations Comments Left knee flexion limited in hook lying with hip flexed--no greater than 90 deg B passive SLR to 60 deg before pt flexes knee PT-OP-M Strength Start: 12/26/20 13:24 Freq: Status: Active Protocol: Document 12/27/20 07:31 MB (Rec: 12/27/20 13:27 MB [id number]) Hip Strength Hip Manual Muscle Testing Left Flexion (L2) 5 Normal Extension (S1) 4 Good Abduction 5 Normal Comments Hip extension creates LB/ sacral pain Right Flexion (L2) 5 Normal Extension (S1) 4 Good Abduction 5 Normal Comments Hip extension creates LB/ sacral pain Knee Strength Knee Manual Muscle Testing Left Flexion (S2) 5 Normal Extension (L3) 5 Normal Comments Knee flexion in limited range Right Flexion (S2) 5 Normal Extension (L3) 5 Normal Ankle/Foot Strength Ankle and Foot Manual Muscle Testing Left Dorsiflexion (L4) 5 Normal Comments In limited AROM Right Dorsiflexion (L4) 5 Normal Comments In limited AROM PT-OP-Q Treatments Start: 12/26/20 13:24 Freq: Status: Active Protocol: Document 01/06/21 13:45 MB (Rec: 01/06/21 14:55 MB [id number]) Manual Therapy Treatment Other Other Manual Treatments Pt kneeling on wedge and lying over plinth: palpation and STM B thoracolumbar paraspinals, left QL, B hip rotators and glute min, med and max. Pt with increased fullness right posterior LQ around the QL that wraps anteriorly. Instrumentation around right L1 area is less palpable than the left (Left is more noticeable). He has a scar over his left iliac crest area on posterlateral side. Pt has increased skin redness chest and stomach and increased dryness in his arms. Some other scar and skin changes posteriorly. Self-Care/Home Management Treatment Education Other Education Ed pt about importance of follow-up with surgeon, that PT will con't to treat pt to tolerance but need feedback if any exercise or manual intervention helps or worsens symptoms. Ed pt on thoracic, QL, kidney, innominate, sacral anatomy PT-OP-T Assessment and Plan Start: 12/26/20 13:24 Freq: Status: Active Protocol: Document 01/06/21 13:45 MB (Rec: 01/06/21 14:41 MB [id number]) Physical Therapy Assessment Rehab Potential Rehabilitation Potential Good Evaluation Complexity Number of Personal Factors/Comorbidities 1-2 Number of Body Systems Impaired 1-2 Clinical Presentation at Evaluation Stable Impairments Impairments Activity Tolerance,Balance, Gait,Pain,Posture,ROM,Soft Tissue Mobility,Strength Other Impairments Pt denies paresthesias in his legs Goals 3 Cytology Teacher Goal (LTG) Pt will perform progressive HEP with I including pelvic realignment, postural, core, flexibility, strengthening and balance exercises to improve pain and flexibility by 2020. LTG Duration 8 weeks 2 Cytology Teacher Goal (LTG) Pt will perform WNLs on a standardized balance test to decrease fall risk by 2020. LTG Duration 8 weeks 1 Cytology Teacher Goal (LTG) Pt will report a 75% improvement in LB/sacral pain to improve overall quality of life by 02/24/2021. LTG Duration 8 weeks Assessment Summary Assessment Pt asks to start strengthening and PT does not have x-ray reports from Saturday and so deferred today. PT has asked for x-ray reports to be sent and will see if PT is able to receive x-ray reports. Pt con' t to be a poor historian as far as describing any worsening or improvement in symptoms with PT exercise and manual interventions. His descriptions of his understanding of the anatomy of his injury/surgery is confusing--he states x-ray was of his thoracic spine and when PT palpates iliac crest, pt reports that this is where his surgery was. PT re-ed on where his sacrum is, and pt con't to report understanding that the iliac crest is his sacrum. Will con't gentle exercise progression to pt tolerance and manual work as helpful. Limitations are surgical changes, decreased accessibility to records and pt's difficulty with reports of progress and history. Also, pt has not gone for follow-up with surgeon. He reports he is frustrated because he states that the x-ray people said the doctor office would only call if something was wrong. Physical Therapy Plan Frequency and Duration Frequency of Treatment 2x/Week Duration of Treatment 8 weeks Plan of Care Start Date 12/30/20 Plan of Care End Date 02/24/21 Therapeutic Interventions Therapeutic Interventions Balance Training,Canalithic Repositioning,Gait Training, Home Exercise Program,Joint Mobilizations,Manual Therapy, Neuromuscular Re-education, Patient/Caregiver Education, Self-Care/Home Management,Soft Tissue Mobilization,Taping, Therapeutic Exercises Modalities Cold Pack/Ice Massage,Electric Stimulation,Hot Packs, Ultrasound Other Referrals/Consults Referrals/Consults Recommended Follow-up with surgeon about catching and popping when lying down, 10/10 pain that occurs, pt to see pelvic floor PT at this clinic in conjunction with this PT Next Visit Focus/Plan Next Note Type Treatment Note Next Visit Plan Hamstring and calf stretches and use of racquet ball for self-massage. Consider gentle hip flexor stretch. Initiate Counterstrain and fascial release, pt to receive some treatments with pelvic maternity floor supervisor PT as well
--- NOTE | 2021-01-13 14:34 | PT.OTN ---
Current Diagnoses Unspecified fracture of sacrum, initial encounter for closed fracture (01/13/21) Physical Therapy Treatment Note PT-OP-A Visit Information Start: 12/26/20 13:24 Freq: Status: Active Protocol: Document 01/13/21 13:46 MB (Rec: 01/13/21 14:34 MB [id number]) Out-Patient Physical Therapy Visit Information Visit Information Visit Type Treatment Note Visit Note Devonte, copay $45, 25 visits Pt goes by Pato Visit Start Time 13:46 Visit Stop Time 14:30 Total Visit Minutes 44 Visit Number 04/25 Precautions Precautions Pt s/p sacral fracture, was allowed 50% WB 10 weeks post- op and 100% 12 weeks--surgery was 10/07/2020, L1 compression fracture PT-OP-B Current Condition Start: 12/26/20 13:24 Freq: Status: Active Protocol: Document 12/27/20 07:31 MB (Rec: 12/27/20 07:56 MB [id number]) Current Condition History of Current Condition Onset Date 10/03/21 Current Complaints Right sided LBP near kidney with lying flat History of Current Condition Pt fell off roof when cleaning roof 10/03/2020 and landed flat on concrete. He was found to have sacral fracture, no head injury and chronic left cerebellar infarct, L1 compression fracture, severe canal stenosis and cord flattening. Pt reports that he passed out and thinks he had a concussion. Pt states that he had a pin and loc in L1-2 and then two screws in left side of sacrum on 10/07/21. Pt states that he has been full WB LLE this week (he is not quite 12 weeks post-op). He reports pain 10/ 10 pain right LB near kidney everyday when he lies down. It lasts a few seconds. 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 Pt has been walking up to 5 miles for exercise. He started with walking sticks and has progressed without and has progressed to walking up [facility]. Pt is sleeping on his back and using cervical support. He is using oxycodone after some long walks a few days a week. He feels tight after walks. Pt denies paresthesias. Pt feels that his residual is d/t the rods. Prior Treatments and Tests PT for B TKRs Treatment Goals Patient/Caregiver Goals To get back to where I was. Pt would like to get back to biking in the summer, road biking. PT-OP-C Subjective Start: 12/26/20 13:24 Freq: Status: Active Protocol: Document 01/13/21 13:46 MB (Rec: 01/13/21 14:34 MB [id number]) OP-PT Subjective Patient Comments Patient Comments Pt states that he thinks he might have a bladder infection because of urgency. He reports that he talked with the surgeon's nurse and she told him that all looks good. He is supposed to get a call back from the surgeon today and states he will tell the surgeon about his right sided pain, pain with lying down and testicular pain after walking . 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 Pt reports he cannot walk without socks on d/t plantar foot pain. PT-OP-J Posture/Palpation/Skin Start: 12/26/20 13:24 Freq: Status: Active Protocol: Document 12/27/20 07:31 MB (Rec: 12/27/20 13:27 MB [id number]) Posture Evaluation Comments Posture Comments Standing posture: forward head , rounded shoulders, Dowager's hump, decreased thoracic kyphosis and lumbar lordosis with flattening down to the sacrum. Pt with three scars on both sides of the spine L1-L3 area. Right iliac crest is higher than the left and pt with increased tension right QL. Limited ankle DF B after foot surgeries. B rapid passive DF negative for clonus . PT-OP-K Range of Motion Start: 12/26/20 13:24 Freq: Status: Active Protocol: Document 12/27/20 07:31 MB (Rec: 12/27/20 13:27 MB [id number]) Knee Goniometric Range of Motion Knee ROM Limitations Comments Left knee flexion limited in hook lying with hip flexed--no greater than 90 deg B passive SLR to 60 deg before pt flexes knee PT-OP-M Strength Start: 12/26/20 13:24 Freq: Status: Active Protocol: Document 12/27/20 07:31 MB (Rec: 12/27/20 13:27 MB [id number]) Hip Strength Hip Manual Muscle Testing Left Flexion (L2) 5 Normal Extension (S1) 4 Good Abduction 5 Normal Comments Hip extension creates LB/ sacral pain Right Flexion (L2) 5 Normal Extension (S1) 4 Good Abduction 5 Normal Comments Hip extension creates LB/ sacral pain Knee Strength Knee Manual Muscle Testing Left Flexion (S2) 5 Normal Extension (L3) 5 Normal Comments Knee flexion in limited range Right Flexion (S2) 5 Normal Extension (L3) 5 Normal Ankle/Foot Strength Ankle and Foot Manual Muscle Testing Left Dorsiflexion (L4) 5 Normal Comments In limited AROM Right Dorsiflexion (L4) 5 Normal Comments In limited AROM PT-OP-Q Treatments Start: 12/26/20 13:24 Freq: Status: Active Protocol: Document 01/13/21 13:46 MB (Rec: 01/13/21 14:34 MB [id number]) Therapeutic Exercises Supine Exercises Diaphragm breathing Comments Performed in hook lying with cues during and after manual positional releas Log rolling technique Comments Ongoing cues and practice for this as pt tends to straighten out Standing Exercises 2 Standing Exercise Name Doorway stretches: pect, QL and hip flexor Comments B, 30 sec hold all, see assessment comments Thoracic mobility gently with kids ball Comments This exercise feels therapeutic to pt Manual Therapy Treatment Other Other Manual Treatments Pt hook lying with wedge under his knees: positional release right QL, thoracic paraspinal and pt with coordinating diaphragm breathing PT-OP-T Assessment and Plan Start: 12/26/20 13:24 Freq: Status: Active Protocol: Document 01/13/21 13:46 MB (Rec: 01/13/21 14:34 MB [id number]) Physical Therapy Assessment Rehab Potential Rehabilitation Potential Good Evaluation Complexity Number of Personal Factors/Comorbidities 1-2 Number of Body Systems Impaired 1-2 Clinical Presentation at Evaluation Stable Impairments Impairments Activity Tolerance,Balance, Gait,Pain,Posture,ROM,Soft Tissue Mobility,Strength Other Impairments Pt denies paresthesias in his legs 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 LTG Duration 8 weeks 2 Half-Way Goal (LTG) Pt will perform WNLs on a standardized balance test to decrease fall risk by 2020. LTG Duration 8 weeks 1 Pole Peeling Machine Operator Helper Goal (LTG) Pt will report a 75% improvement in LB/sacral pain to improve overall quality of life by 02/24/2021. LTG Duration 8 weeks Assessment Summary Assessment Pt is difficult to read, has trouble communicating what is therapeutic and what is not. Doorway stretch for right QL bothers left LB SI area and left QL stretch bothers right stiff surgical area near the base of the sacrum on the right side. Con't to try to progress flexibility exercises and breathing exercises. Physical Therapy Plan Frequency and Duration Frequency of Treatment 2x/Week Duration of Treatment 8 weeks Plan of Care Start Date 12/30/20 Plan of Care End Date 02/24/21 Therapeutic Interventions Therapeutic Interventions Balance Training,Canalithic Repositioning,Gait Training, Home Exercise Program,Joint Mobilizations,Manual Therapy, Neuromuscular Re-education, Patient/Caregiver Education, Self-Care/Home Management,Soft Tissue Mobilization,Taping, Therapeutic Exercises Modalities Cold Pack/Ice Massage,Electric Stimulation,Hot Packs, Ultrasound Other Referrals/Consults Referrals/Consults Recommended Follow-up with surgeon about catching and popping when lying down, 10/10 pain that occurs, pt to see pelvic floor PT at this clinic in conjunction with this PT Next Visit Focus/Plan Next Note Type Treatment Note Next Visit Plan Gently progress flexibility and core strengthening exercises. Pt to see pelvic floor physical therapist as well as this PT.
--- NOTE | 2021-01-20 14:31 | PT.OTN ---
Current Diagnoses Unspecified fracture of sacrum, initial encounter for closed fracture (01/20/21) Physical Therapy Treatment Note PT-OP-A Visit Information Start: 12/26/20 13:24 Freq: Status: Active Protocol: Document 01/20/21 13:47 MB (Rec: 01/20/21 14:27 MB [id number]) Out-Patient Physical Therapy Visit Information Visit Information Visit Type Treatment Note Visit Note Devonte, copay $45, 25 visits Pato Visit Start Time 13:47 Visit Stop Time 14:27 Total Visit Minutes 40 Visit Number 05/26 Precautions Precautions Pt s/p sacral fracture, was allowed 50% WB 10 weeks post- op and 100% 12 weeks--surgery was 10/07/2020, L1 compression fracture PT-OP-B Current Condition Start: 12/26/20 13:24 Freq: Status: Active Protocol: Document 12/27/20 07:31 MB (Rec: 12/27/20 07:56 MB [id number]) Current Condition History of Current Condition Onset Date 10/03/21 Current Complaints Right sided LBP near kidney with lying flat History of Current Condition Pt fell off roof when cleaning roof 10/03/2020 and landed flat on concrete. He was found to have sacral fracture, no head injury and chronic left cerebellar infarct, L1 compression fracture, severe canal stenosis and cord flattening. Pt reports that he passed out and thinks he had a concussion. Pt states that he had a pin and loc in L1-2 and then two screws in left side of sacrum on 10/07/21. Pt states that he has been full WB LLE this week (he is not quite 12 weeks post-op). He reports pain 10/ 10 pain right LB near kidney everyday when he lies down. It lasts a few seconds. 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 Pt has been walking up to 5 miles for exercise. He started with walking sticks and has progressed without and has progressed to walking up [facility]. Pt is sleeping on his back and using cervical support. He is using oxycodone after some long walks a few days a week. He feels tight after walks. Pt denies paresthesias. Pt feels that his residual is d/t the rods. Prior Treatments and Tests PT for B TKRs Treatment Goals Patient/Caregiver Goals To get back to where I was. Pt would like to get back to biking in the summer, road biking. PT-OP-C Subjective Start: 12/26/20 13:24 Freq: Status: Active Protocol: Document 01/20/21 13:47 MB (Rec: 01/20/21 14:27 MB [id number]) OP-PT Subjective Patient Comments Patient Comments Pt reports that the surgeon called him back and LM that all the hardware is in the right place. The right sided popping pain is better and has only ocurred a couple of times this week. The pelvic realignment exercises are painful but feel helpful. 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 Pt reports he cannot walk without socks on d/t plantar foot pain. PT-OP-J Posture/Palpation/Skin Start: 12/26/20 13:24 Freq: Status: Active Protocol: Document 12/27/20 07:31 MB (Rec: 12/27/20 13:27 MB [id number]) Posture Evaluation Comments Posture Comments Standing posture: forward head , rounded shoulders, Dowager's hump, decreased thoracic kyphosis and lumbar lordosis with flattening down to the sacrum. Pt with three scars on both sides of the spine L1-L3 area. Right iliac crest is higher than the left and pt with increased tension right QL. Limited ankle DF B after foot surgeries. B rapid passive DF negative for clonus . PT-OP-K Range of Motion Start: 12/26/20 13:24 Freq: Status: Active Protocol: Document 12/27/20 07:31 MB (Rec: 12/27/20 13:27 MB [id number]) Knee Goniometric Range of Motion Knee ROM Limitations Comments Left knee flexion limited in hook lying with hip flexed--no greater than 90 deg B passive SLR to 60 deg before pt flexes knee PT-OP-M Strength Start: 12/26/20 13:24 Freq: Status: Active Protocol: Document 12/27/20 07:31 MB (Rec: 12/27/20 13:27 MB [id number]) Hip Strength Hip Manual Muscle Testing Left Flexion (L2) 5 Normal Extension (S1) 4 Good Abduction 5 Normal Comments Hip extension creates LB/ sacral pain Right Flexion (L2) 5 Normal Extension (S1) 4 Good Abduction 5 Normal Comments Hip extension creates LB/ sacral pain Knee Strength Knee Manual Muscle Testing Left Flexion (S2) 5 Normal Extension (L3) 5 Normal Comments Knee flexion in limited range Right Flexion (S2) 5 Normal Extension (L3) 5 Normal Ankle/Foot Strength Ankle and Foot Manual Muscle Testing Left Dorsiflexion (L4) 5 Normal Comments In limited AROM Right Dorsiflexion (L4) 5 Normal Comments In limited AROM PT-OP-Q Treatments Start: 12/26/20 13:24 Freq: Status: Active Protocol: Document 01/20/21 13:47 MB (Rec: 01/20/21 14:27 MB [id number]) Gym Equipment Therapeutic Ball Therapy ball exercises Comments B adductor and hamstring stretches and pelvic rocking and circles, pt to try his therapy ball at desk at home Therapeutic Exercises Sitting Exercises Hamstring, hip rotator, QL and thoracic rotation stretches Sitting Exercise Name Pt cannot tolerate hip rotator stretches Comments Performs 1 rep B, 30 sec hold, breathing, gave hamstring, thoracic rot/QL H Standing Exercises Thoracic mobility gently with kids ball Comments Performed over glutes/hip rotators today PT-OP-T Assessment and Plan Start: 12/26/20 13:24 Freq: Status: Active Protocol: Document 01/20/21 13:47 MB (Rec: 01/20/21 14:27 MB [id number]) Physical Therapy Assessment Rehab Potential Rehabilitation Potential Good Evaluation Complexity Number of Personal Factors/Comorbidities 1-2 Number of Body Systems Impaired 1-2 Clinical Presentation at Evaluation Stable Impairments Impairments Activity Tolerance,Balance, Gait,Pain,Posture,ROM,Soft Tissue Mobility,Strength Other Impairments Pt denies paresthesias in his legs Goals 3 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 LTG Duration 8 weeks 2 Snf Goal (LTG) Pt will perform WNLs on a standardized balance test to decrease fall risk by 2020. LTG Duration 8 weeks 1 Snf Goal (LTG) Pt will report a 75% improvement in LB/sacral pain to improve overall quality of life by 02/24/2021. LTG Duration 8 weeks Assessment Summary Assessment Initiated further flexibility today and will see how pt responds. Will progress core strengthening in supported hook lying position in the future. Pt reports pain on his road bike ride across low back near lumbar instrumentation and talked about posible bike changes. Physical Therapy Plan Frequency and Duration Frequency of Treatment 2x/Week Duration of Treatment 8 weeks Plan of Care Start Date 12/30/20 Plan of Care End Date 02/24/21 Therapeutic Interventions Therapeutic Interventions Balance Training,Canalithic Repositioning,Gait Training, Home Exercise Program,Joint Mobilizations,Manual Therapy, Neuromuscular Re-education, Patient/Caregiver Education, Self-Care/Home Management,Soft Tissue Mobilization,Taping, Therapeutic Exercises Modalities Cold Pack/Ice Massage,Electric Stimulation,Hot Packs, Ultrasound Next Visit Focus/Plan Next Note Type Treatment Note Next Visit Plan Gently progress core strengthening on yoga mat on floor or large table with towel roll to support sacrum.
--- NOTE | 2021-02-07 08:50 | PT.OTN ---
Current Diagnoses Unspecified fracture of sacrum, initial encounter for closed fracture (02/07/21) Physical Therapy Treatment Note PT-OP-A Visit Information Start: 12/26/20 13:24 Freq: Status: Active Protocol: Document 02/07/21 08:16 MB (Rec: 02/07/21 08:52 MB [id number]) Out-Patient Physical Therapy Visit Information Visit Information Visit Type Discharge Summary Visit Note Devonte, copay $45 Pato Visit Start Time 08:16 Visit Stop Time 08:46 Total Visit Minutes 30 Visit Number 06/25 Precautions Precautions Pt s/p sacral fracture, was allowed 50% WB 10 weeks post- op and 100% 12 weeks--surgery was 10/07/2020, L1 compression fracture PT-OP-B Current Condition Start: 12/26/20 13:24 Freq: Status: Active Protocol: Document 12/27/20 07:31 MB (Rec: 12/27/20 07:56 MB [id number]) Current Condition History of Current Condition Onset Date 10/03/21 Current Complaints Right sided LBP near kidney with lying flat History of Current Condition Pt fell off roof when cleaning roof 10/03/2020 and landed flat on concrete. He was found to have sacral fracture, no head injury and chronic left cerebellar infarct, L1 compression fracture, severe canal stenosis and cord flattening. Pt reports that he passed out and thinks he had a concussion. Pt states that he had a pin and loc in L1-2 and then two screws in left side of sacrum on 10/07/21. Pt states that he has been full WB LLE this week (he is not quite 12 weeks post-op). He reports pain 10/ 10 pain right LB near kidney everyday when he lies down. It lasts a few seconds. 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 Pt has been walking up to 5 miles for exercise. He started with walking sticks and has progressed without and has progressed to walking up [facility]. Pt is sleeping on his back and using cervical support. He is using oxycodone after some long walks a few days a week. He feels tight after walks. Pt denies paresthesias. Pt feels that his residual is d/t the rods. Prior Treatments and Tests PT for B TKRs Treatment Goals Patient/Caregiver Goals To get back to where I was. Pt would like to get back to biking in the summer, road biking. PT-OP-C Subjective Start: 12/26/20 13:24 Freq: Status: Active Protocol: Document 02/07/21 08:16 MB (Rec: 02/07/21 08:52 MB [id number]) OP-PT Subjective Patient Comments Patient Comments Pt states that he is feeling a lot better and he is ready to d/c PT. He hike [employer] and [employer] yesterday. He is back to biking. 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 Pt reports he cannot walk without socks on d/t plantar foot pain. PT-OP-J Posture/Palpation/Skin Start: 12/26/20 13:24 Freq: Status: Active Protocol: Document 12/27/20 07:31 MB (Rec: 12/27/20 13:27 MB [id number]) Posture Evaluation Comments Posture Comments Standing posture: forward head , rounded shoulders, Dowager's hump, decreased thoracic kyphosis and lumbar lordosis with flattening down to the sacrum. Pt with three scars on both sides of the spine L1-L3 area. Right iliac crest is higher than the left and pt with increased tension right QL. Limited ankle DF B after foot surgeries. B rapid passive DF negative for clonus . PT-OP-K Range of Motion Start: 12/26/20 13:24 Freq: Status: Active Protocol: Document 12/27/20 07:31 MB (Rec: 12/27/20 13:27 MB [id number]) Knee Goniometric Range of Motion Knee ROM Limitations Comments Left knee flexion limited in hook lying with hip flexed--no greater than 90 deg B passive SLR to 60 deg before pt flexes knee PT-OP-M Strength Start: 12/26/20 13:24 Freq: Status: Active Protocol: Document 12/27/20 07:31 MB (Rec: 12/27/20 13:27 MB [id number]) Hip Strength Hip Manual Muscle Testing Left Flexion (L2) 5 Normal Extension (S1) 4 Good Abduction 5 Normal Comments Hip extension creates LB/ sacral pain Right Flexion (L2) 5 Normal Extension (S1) 4 Good Abduction 5 Normal Comments Hip extension creates LB/ sacral pain Knee Strength Knee Manual Muscle Testing Left Flexion (S2) 5 Normal Extension (L3) 5 Normal Comments Knee flexion in limited range Right Flexion (S2) 5 Normal Extension (L3) 5 Normal Ankle/Foot Strength Ankle and Foot Manual Muscle Testing Left Dorsiflexion (L4) 5 Normal Comments In limited AROM Right Dorsiflexion (L4) 5 Normal Comments In limited AROM PT-OP-Q Treatments Start: 12/26/20 13:24 Freq: Status: Active Protocol: Document 02/07/21 08:16 MB (Rec: 02/07/21 08:52 MB [id number]) Therapeutic Exercises Sitting Exercises Hamstring, hip rotator, QL and thoracic rotation stretches Sitting Exercise Name QL, hamstring, thoracic rotation in sitting Side bilateral Comments Cues for form Standing Exercises Tandem standing corner Side bilateral Comments 1 minute each foot behind and challenging B Other Exercises Reviewed HEP Comments Performed today in preparation for d/c Neuro Re-Education Treatment Balance Activities FGA and balance exercise assessment Comments FGA score 25/30 and pt has most trouble with tandem gait, stepping over a box d/t left knee changes post-op TKA and limited range, decreased confidence with eyes closed and backwards walking. Hx of concussion and left ankle fusion as well. Assess best balance exercise for home and Tandem to be what pt performs and provided handout PT-OP-T Assessment and Plan Start: 12/26/20 13:24 Freq: Status: Active Protocol: Document 02/07/21 08:16 MB (Rec: 02/07/21 08:52 MB [id number]) Physical Therapy Assessment Rehab Potential Rehabilitation Potential Good Evaluation Complexity Number of Personal Factors/Comorbidities 1-2 Number of Body Systems Impaired 1-2 Clinical Presentation at Evaluation Stable Impairments Impairments Activity Tolerance,Balance, Gait,Pain,Posture,ROM,Soft Tissue Mobility,Strength Other Impairments Pt denies paresthesias in his legs Goals 3 [employer]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 02/07/21: Pt has been performing door stretches, pelvic realignment exercises, ball massages and abdominal drawing in. He is working, biking and walking. LTG Duration 8 weeks 2 Fpc Goal (LTG) Pt will perform WNLs on a standardized balance test to decrease fall risk by 2020. 02/07/21: FGA score 25/30 and provided balance exercise for home 02/07/21: FGA LTG Duration 8 weeks 1 [employer] Special Ed Teacher Goal (LTG) Pt will report a 75% improvement in LB/sacral pain to improve overall quality of life by 02/24/2021. 02/07/21: Pt has not taken pain pills in 3 weeks. He reports at least 75% improvement in pain since starting PT. LTG Duration 8 weeks Assessment Summary Assessment Pt states that he is much better and is ready for d/c. Reviewed exercises and he has met HEP and pain goals. He is progressing with balance and PT provided balance exercise for home today. Will d/c PT.
--- NOTE | 2021-02-07 08:52 | PT.OPDS ---
Current Diagnoses Unspecified fracture of sacrum, initial encounter for closed fracture (02/07/21) Visit Care Team Role Provider Type Other Providers Specialty: Address: Phone: Fax: Email: Other Providers Specialty: Address: Phone: Fax: Email: Danish Medina MD Family Provider Non-Staff Primary Care Provider Specialty: Family Practice Address: [address], [place], [address] Email: Aurelia Sorto PA-C Attending Provider Non-Staff Referring Provider Specialty: General Surgery Address: [address], [address] Email: Visit Number Visit Number 06/25 Discharge Summary PT-OP-B Current Condition Start: 12/26/20 13:24 Freq: Status: Active Protocol: Document 12/27/20 07:31 MB (Rec: 12/27/20 07:56 MB [id number]) Current Condition History of Current Condition Onset Date 10/03/21 Current Complaints Right sided LBP near kidney with lying flat History of Current Condition Pt fell off roof when cleaning roof 10/03/2020 and landed flat on concrete. He was found to have sacral fracture, no head injury and chronic left cerebellar infarct, L1 compression fracture, severe canal stenosis and cord flattening. Pt reports that he passed out and thinks he had a concussion. Pt states that he had a pin and loc in L1-2 and then two screws in left side of sacrum on 10/07/21. Pt states that he has been full WB LLE this week (he is not quite 12 weeks post-op). He reports pain 10/ 10 pain right LB near kidney everyday when he lies down. It lasts a few seconds. 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 Pt has been walking up to 5 miles for exercise. He started with walking sticks and has progressed without and has progressed to walking up [place]. Pt is sleeping on his back and using cervical support. He is using oxycodone after some long walks a few days a week. He feels tight after walks. Pt denies paresthesias. Pt feels that his residual is d/t the rods. Prior Treatments and Tests PT for B TKRs Treatment Goals Patient/Caregiver Goals To get back to where I was. Pt would like to get back to biking in the summer, road biking. PT-OP-C Subjective Start: 12/26/20 13:24 Freq: Status: Active Protocol: Document 02/07/21 08:16 MB (Rec: 02/07/21 08:52 MB [id number]) OP-PT Subjective Patient Comments Patient Comments Pt states that he is feeling a lot better and he is ready to d/c PT. He hike [place]. He is back to biking. 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 Pt reports he cannot walk without socks on d/t plantar foot pain. PT-OP-J Posture/Palpation/Skin Start: 12/26/20 13:24 Freq: Status: Active Protocol: Document 12/27/20 07:31 MB (Rec: 12/27/20 13:27 MB [id number]) Posture Evaluation Comments Posture Comments Standing posture: forward head , rounded shoulders, Dowager's hump, decreased thoracic kyphosis and lumbar lordosis with flattening down to the sacrum. Pt with three scars on both sides of the spine L1-L3 area. Right iliac crest is higher than the left and pt with increased tension right QL. Limited ankle DF B after foot surgeries. B rapid passive DF negative for clonus . PT-OP-K Range of Motion Start: 12/26/20 13:24 Freq: Status: Active Protocol: Document 12/27/20 07:31 MB (Rec: 12/27/20 13:27 MB [id number]) Knee Goniometric Range of Motion Knee ROM Limitations Comments Left knee flexion limited in hook lying with hip flexed--no greater than 90 deg B passive SLR to 60 deg before pt flexes knee PT-OP-M Strength Start: 12/26/20 13:24 Freq: Status: Active Protocol: Document 12/27/20 07:31 MB (Rec: 12/27/20 13:27 MB [id number]) Hip Strength Hip Manual Muscle Testing Left Flexion (L2) 5 Normal Extension (S1) 4 Good Abduction 5 Normal Comments Hip extension creates LB/ sacral pain Right Flexion (L2) 5 Normal Extension (S1) 4 Good Abduction 5 Normal Comments Hip extension creates LB/ sacral pain Knee Strength Knee Manual Muscle Testing Left Flexion (S2) 5 Normal Extension (L3) 5 Normal Comments Knee flexion in limited range Right Flexion (S2) 5 Normal Extension (L3) 5 Normal Ankle/Foot Strength Ankle and Foot Manual Muscle Testing Left Dorsiflexion (L4) 5 Normal Comments In limited AROM Right Dorsiflexion (L4) 5 Normal Comments In limited AROM PT-OP-T Assessment and Plan Start: 12/26/20 13:24 Freq: Status: Active Protocol: Document 02/07/21 08:16 MB (Rec: 02/07/21 08:52 MB [id number]) Physical Therapy Assessment Rehab Potential Rehabilitation Potential Good Evaluation Complexity Number of Personal Factors/Comorbidities 1-2 Number of Body Systems Impaired 1-2 Clinical Presentation at Evaluation Stable Impairments Impairments Activity Tolerance,Balance, Gait,Pain,Posture,ROM,Soft Tissue Mobility,Strength Other Impairments Pt denies paresthesias in his legs Goals 3 [employer] Goal (LTG) Pt will perform progressive HEP with I including pelvic realignment, postural, core, flexibility, strengthening and balance exercises to improve pain and flexibility by 2020. 02/07/21: Pt has been performing door stretches, pelvic realignment exercises, ball massages and abdominal drawing in. He is working, biking and walking. LTG Duration 8 weeks 2 Nursing Home Goal (LTG) Pt will perform WNLs on a standardized balance test to decrease fall risk by 2020. 02/07/21: FGA score 25/30 and provided balance exercise for home 02/07/21: FGA LTG Duration 8 weeks 1 Nursing Home Goal (LTG) Pt will report a 75% improvement in LB/sacral pain to improve overall quality of life by 02/24/2021. 02/07/21: Pt has not taken pain pills in 3 weeks. He reports at least 75% improvement in pain since starting PT. LTG Duration 8 weeks Assessment Summary Assessment Pt states that he is much better and is ready for d/c. Reviewed exercises and he has met HEP and pain goals. He is progressing with balance and PT provided balance exercise for home today. Will d/c PT.
== END 2021-02-07 11:50 | disposition home or self-care (01) ==
LOC: PHYS 08:15
PROVIDERS: Family Provider Family Medicine; PCP Family Medicine; Referring Provider Physician Assistant Surgical; Visit Provider Physician Assistant Surgical
DX: S32.10XA Unspecified fracture of sacrum, initial encounter for closed fracture (principal)
CPT/HCPCS: 97110; 97112; 97140; 97162; 97535

== ENCOUNTER 2021-03-15 18:34 | Emergency (ER) | payer OTHER, SELFPAY ==
[2021-03-15 18:58] VITALS: BP 132/84; PULSE 64; RESP 18; TEMP 37.3; O2SAT 100
--- NOTE | 2021-03-15 19:16 | ED.RECABL ---
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 He started himself on a Z-Eran which he finished week ago he states that the fever improved. At that time he just did not feel well. He had a urinalysis done as an outpatient which did show nitrates and was instructed to come to the emergency department to get started on antibiotic. He is actually having some right-sided flank pain is nonradiating. He states that he has had prior back surgery and he thinks that that is what it is from. He overall does not feel great. I have spoken with him about blood work and possibly severe disease although he is afebrile not tachycardic and in normal blood pressure. At this time he is willing to give a repeat urinalysis so it can be sent for culture and would just like an antibiotic. Related Data Home Medications Medication Instructions Recorded Confirmed aspirin [Adult Low Dose Aspirin] 81 mg PO QAM 10/03/20 10/03/20 fluoxetine 60 mg PO DAILY 10/03/20 10/03/20 Previous Rx's Medication Instructions Recorded sulfamethoxazole-trimethoprim 1 tab PO BID 5 Days #14 tab 03/15/21 [Bactrim DS] Allergies Allergy/AdvReac Type Severity Reaction Status Date / Time celecoxib Allergy Unknown Verified 10/03/20 18:05 chlorhexidine Allergy Unknown Verified 10/03/20 18:05 Review of Systems Review of Systems ROS Unobtainable: All systems reviewed & are unremarkable except as noted in HPI and below Constitutional Constitutional: Reports as per HPI, Reports body ache(s), Reports chills, Reports fatigue, Reports fever(s) and Denies frequent falls ENT Ears, Nose, Mouth, and Throat: Denies dizziness Cardiovascular Cardiovascular: Denies chest pain, Denies irregular heart rhythm, Denies lightheadedness, Denies palpitations, Denies dyspnea, Denies dyspnea on exertion and Denies orthopnea Respiratory Respiratory: Denies cough, Denies dyspnea, Denies dyspnea on exertion and Denies wheezing Gastrointestinal Gastrointestinal: Denies abdominal pain, Denies change in bowel habits, Denies diarrhea, Denies nausea and Denies vomiting Genitourinary Genitourinary: Reports urinary hesitancy and Reports urinary incontinence Genitourinary: Reports urinary incontinence and Reports urinary hesitancy Musculoskeletal Musculoskeletal: Reports back pain and Denies numbness Integumentary/Breasts Skin/Breast: Denies pruritus, Denies erythema, Denies rash and Denies wounds Neurologic Neurologic: Denies behavioral changes, Denies confusion, Denies dizziness, Denies frequent falls and Denies numbness Psychiatric Psychiatric: Denies behavioral changes and Denies confusion Endocrine Endocrine: Reports fatigue and Denies palpitations Allergic/Immunologic Allergic/Immunologic: Denies wheezing Patient History Medical History (Updated 03/15/21 @ 19:21 by Denia Gutierrez DO) Pulmonary embolism Social History Smoking Status: Never smoker Smoking Status: Never smoker Exam Initial Vital Signs Initial Vital Signs: Vital Signs Temperature 99.2 F 03/15/21 18:58 Pulse Rate 64 03/15/21 18:58 Respiratory Rate 18 03/15/21 18:58 Blood Pressure 132/84 03/15/21 18:58 Pulse Oximetry 100 03/15/21 18:58 GENERAL: Well-appearing, well-nourished and in no acute distress. HEENT: Head atraumatic,EOMI, pupils reactive, face symmetric, moist mucous membranes CARDIOVASCULAR: Regular rate and rhythm without murmurs, rubs or gallops. RESPIRATORY: Breath sounds equal bilaterally, no wheezes rales or rhonchi. ABDOMEN: Soft, nontender. Normoactive bowel sounds all 4 quadrants. No guarding or rebound. : Right CVA tenderness EXTREMITIES: Normal range of motion, no clubbing or edema. Neurovascularly intact NEUROLOGICAL: Alert and oriented x4.Normal gait and speech. SKIN: Warm, dry, no laceration, no petechiae, no rashes or lesions. Course Orders Ordered: ED Orders 03/15/21 19:15 Urinalysis and Microscopic Stat Vital Signs Vital signs: Vital Signs - 8 hr 03/15/21 18:58 Temperature 99.2 F Pulse Rate 64 Respiratory Rate 18 Blood Pressure 132/84 Pulse Oximetry 100 MDM - Recheck/Abnormal Lab/Rx Lab Data Labs: Lab Results 03/15/21 Range/Units 19:24 Urine Color Yellow Urine Appearance Clear Urine pH 6.0 (4.5-8.0) Ur Specific [place] 1.020 (1.000-1.035) Urine Protein Negative (Negative) Urine Glucose (UA) Negative (Negative) g/dL Urine Ketones Negative (NEGATIVE) Urine Occult Blood 1+ H (Negative) Urine Nitrate Negative (Negative) Urine Bilirubin Negative (NEGATIVE) Urine Urobilinogen 0.2 (0.2) E.U./dL Ur Leukocyte Esterase 1+ H (NEGATIVE) Urine RBC 1-5/hpf (0-5/HPF) Urine WBC 1-5/hpf (0-5/HPF) Urine Bacteria None seen (None) Ur Culture Indicated? Specimen cultured Urine Dip Bedside Urine Glucose Negative Bedside Urine Bilirubin - Negative Bedside Urine Ketone - Negative Urine Specific [place] 1.015 Bedside Urine Occult Blood +/- Bedside Urine pH 6.0 Bedside Urine Protein - Negative Bedside Urine Urobilinogen - Negative Bedside Urine Nitrite - Negative Bedside Urine Leukocytes +/- 15 Esterase MDM Narrative Medical decision making narrative: Patient overall appears well. However based on his history of ongoing fever recent self treatment of azithromycin and now UTI with probable pyelonephritis recommend blood work. At this time it patient has opted to only give a urinalysis. He would rather follow up with his primary care provider tomorrow. Urinalysis earlier today which he does have a copy of is positive for night ED he is not but has leukocytes in urine sent for culture. Started on Bactrim. Discharge Plan Departure Patient Disposition: Home Clinical Impression: UTI (urinary tract infection) Qualifiers: Urinary tract infection type: acute pyelonephritis Qualified Code(s): N10 - Acute pyelonephritis Instructions: Kidney Infection, DI for Urinary Tract Infection (UTI) Activity Restrictions/Additional Instructions: *You have been diagnosed with kidney infection *What to do: At this time it is recommended that you blood work. Concern is that he had a kidney infection bladder infection on swelling. This could lead to sepsis. Please follow-up with your primary provider tomorrow. A culture is pending and a urine antibiotic needs to be changed we will be sure to call you in about 3 days *Continue to take medications as directed Bactrim 1 tablet twice a day for 7 days *Follow up with your primary care provider in 2-3 days *Return to ER if you should have fever, back pain, nausea, vomiting, weakness, shortness of breath, chest pain or any new, worsening or concerning symptoms Prescriptions: New sulfamethoxazole-trimethoprim [Bactrim DS] 800-160 mg tablet 1 tab PO BID 5 Days Qty: 14 RF: 0 No Action aspirin [Adult Low Dose Aspirin] 81 mg Tablet,Delayed Release (Dr/Ec) 81 mg PO QAM RF: 0 fluoxetine 20 mg capsule 60 mg PO DAILY RF: 0 Referrals: Danish Medina MD [Primary Care Provider] -
[2021-03-15 19:34] LABS: Bacteria Urine None Seen
[2021-03-15 19:35] LABS: Appearance Urine UA CLEAR; Bilirubin Urine UA NEGATIVE (NEGATIVE); Color Urine UA YELLOW; Glucose Urine UA NEGATIVE (Negative); Ketones Urine UA NEGATIVE (NEGATIVE); Leukocyte Esterase Urine UA 1+ (NEGATIVE); Nitrite Urine UA NEGATIVE (Negative); Occult Blood Urine UA 1+ (Negative); Protein Urine UA NEGATIVE (Negative); Urobilinogen Urine UA 0.2 E.U./dL (0.2)
[2021-03-15 19:57] LABS: RBC Urine 1-5/HPF (0-5/HPF); WBC Urine 1-5/HPF (0-5/HPF)
[2021-03-15 19:58] LABS: Culture Indicated Urine Specimen Cultured
== END 2021-03-15 19:35 | disposition home or self-care (01) ==
PROVIDERS: Emergency Provider Emergency Medicine; Family Provider Family Medicine; PCP Family Medicine
DX: N10 Acute pyelonephritis (principal)
CPT/HCPCS: 81001; 81003; 87077; 87086; 87186; 99282

== ENCOUNTER 2021-03-27 10:22 | Emergency (ER) | payer OTHER, SELFPAY ==
[2021-03-27 10:28] VITALS: BP 121/69; PULSE 78; RESP 20; TEMP 36.2; O2SAT 99; BMI 25.4
[2021-03-27 10:45] VITALS: BP 127/86; PULSE 55; O2SAT 97
--- NOTE | 2021-03-27 10:48 | PC.NURSE ---
+ bilateral flank pain, right > left w/ lethargy. Denies n/v/fever, chills. Treated for UTI, symptoms initially resolved, then returned 2 days after completing abx.
--- NOTE | 2021-03-27 10:49 | ED.GENADULT ---
HPI - General Adult General Chief complaint: Urogenital-Male Stated complaint: Back for IV fluids. Per [employer] his insurance.. Time Seen by Provider: 03/27/21 10:28 Source: patient Mode of arrival: Ambulatory Limitations: no limitations History of Present Illness HPI narrative: Patient is a 60-year-old male who was seen in this emergency department approximately 2 weeks ago for dysuria. He did provide a urine sample which was cultured and eventually resulted as E coli. Was sent home on oral Bactrim. Review of this culture shows that the E coli was sensitive to this. He reports that after a couple days on this antibiotic his symptoms completely resolved. He completed a 7 day course of the symptoms and then approximately 2 days later started to develop the same dysuria and flank pain. No nausea vomiting. No belly pain. He does describe flank pain both sides but right being greater than left. No blood in his urine. Is feeling very fatigued. Has not tried anything for the symptoms since they restarted. Related Data Home Medications Medication Instructions Recorded Confirmed aspirin [Adult Low Dose Aspirin] 81 mg PO QAM 10/03/20 10/03/20 fluoxetine 60 mg PO DAILY 10/03/20 10/03/20 Previous Rx's Medication Instructions Recorded cephalexin 500 mg PO BID 7 Days #14 cap 03/27/21 phenazopyridine [Pyridium] 100 mg PO TID PRN #6 tab 03/27/21 Allergies Allergy/AdvReac Type Severity Reaction Status Date / Time celecoxib Allergy Unknown Verified 03/27/21 10:35 Review of Systems Constitutional Constitutional: Reports chills, Reports fatigue, Denies fever(s) and Reports malaise Eyes Eyes: Denies change in vision ENT Ears, Nose, Mouth, and Throat: Denies sore throat Cardiovascular Cardiovascular: Denies chest pain and Denies dyspnea Respiratory Respiratory: Denies cough and Denies dyspnea Gastrointestinal Gastrointestinal: Denies abdominal pain, Denies nausea and Denies vomiting Genitourinary Genitourinary: Reports dysuria and Reports flank pain Genitourinary: Reports dysuria and Reports flank pain Musculoskeletal Musculoskeletal: Denies arthralgias and Denies myalgias Integumentary/Breasts Skin/Breast: Denies rash Neurologic Neurologic: Denies behavioral changes Psychiatric Psychiatric: Denies behavioral changes Endocrine Endocrine: Reports fatigue Hematologic/Lymphatic On Anticoagulants: No Allergic/Immunologic Allergic/Immunologic: Denies urticaria Patient History Medical History (Updated 03/27/21 @ 12:08 by Anthony Ridley DO) Pulmonary embolism Social History Smoking Status: Never smoker Smoking Status: Never smoker alcohol intake frequency: a few times a month Substance Use Type: does not use Exam Initial Vital Signs Initial Vital Signs: Vital Signs Temperature 97.1 F L 03/27/21 10:28 Pulse Rate 78 03/27/21 10:28 Respiratory Rate 20 03/27/21 10:28 Blood Pressure 121/69 03/27/21 10:28 Pulse Oximetry 99 03/27/21 10:28 Const General: cooperative and comfortable Limitations: mental status not altered HENMT Head: normal to inspection and normocephalic Eyes General: appearance normal, both eyes and all related structures Resp Effort & Inspection: normal respiratory effort Auscultation: clear to auscultation bilaterally Cardio Rate: regular rate Rhythm: regular rhythm GI Inspection: non-distended Palpation: soft and No tender Back/Spine/Pelvis Back: CVA tenderness Skin Lesions: no lesions Rashes: no rashes Neuro General: patient alert, patient awake and patient oriented x3 Cognition: normal cognition Speech: speech normal Extrem General: normal to inspection and capillary refill normal Psych Appearance: grossly normal and well kempt Course Orders Ordered: ED Orders 03/27/21 10:45 Basic Metabolic Panel Stat Complete Blood Count AUTO DIFF Stat Urinalysis and Microscopic Stat Urine Culture Stat 03/27/21 10:50 CT kidney ureter bladder (KUB) Stat Discontinued Medications Sodium Chloride (Normal Saline 0.9%) 1,000 mls @ 1,000 mls/hr IV BOLUS ONE Stop: 03/27/21 11:49 Last Infusion: 03/27/21 12:18 Dose: 0 mls/hr Documented by: Admin: 03/27/21 11:06 Dose: 1,000 mls/hr Documented by: JOSE Vital Signs Vital signs: Vital Signs - 8 hr 03/27/21 10:28 03/27/21 10:45 03/27/21 11:02 Temperature 97.1 F L Pulse Rate 78 55 L 50 L Respiratory Rate 20 Blood Pressure 121/69 127/86 120/76 Pulse Oximetry 99 97 100 03/27/21 11:30 03/27/21 12:00 Temperature Pulse Rate 46 L 50 L Respiratory Rate Blood Pressure 110/69 115/78 Pulse Oximetry 96 97 Medical Decision Making Medical Records Medical records reviewed: Yes I reviewed the patient's medical records. Lab Data Lab results reviewed: Yes I reviewed the patient's lab results. Result diagrams: 03/27/21 10:45 03/27/21 10:45 Labs: Lab Results 03/27/21 03/27/21 03/27/21 Range/Units 10:45 10:45 10:45 WBC 4.6 (4.5-11.0) X10^3/uL RBC 4.78 (4.5-5.9) X10^6/uL Hgb 14.6 (13.5-17.5) g/dL Hct 43.8 (41-53) % MCV 91.8 (80-100) fL MCH 30.5 (26-34) PG MCHC 33.3 (30-36) % RDW 14.7 (11.6-14.8) % Plt Count 208 (150-400) X10^3/uL Neut % (Auto) 56.0 (50-75) % Lymph % (Auto) 32.8 (25-40) % Branch % (Auto) 8.0 (3-14) % Eos % (Auto) 2.1 (2-4) % Baso % (Auto) 1.1 (0-2) % Neut # (Auto) 2600 (0699-6722) /uL Lymph # (Auto) 1500 (4449-1428) /uL Branch # (Auto) 400 (0-900) /uL Eos # (Auto) 100 (0-450) /uL Baso # (Auto) 0 (0-100) /uL Sodium 138 (137-145) mmol/L Potassium 4.1 (3.4-5.1) mmol/L Chloride 104 (98-107) mmol/L Carbon Dioxide 26 (22-32) mmol/L BUN 20 (9-20) mg/dL Creatinine 0.67 (0.66-1.25) mg/dL Estimated GFR > 60.0 (>60) mL/min BUN/Creatinine Ratio 29.9 H (6-22) Glucose 95 (80-110) mg/dL Calcium 9.3 (8.4-10.2) mg/dL Urine Color Yellow Urine Appearance Clear Urine pH 6.0 (4.5-8.0) Ur Specific [place] 1.020 (1.000-1.035) Urine Protein Negative (Negative) Urine Glucose (UA) Negative (Negative) g/dL Urine Ketones Negative (NEGATIVE) Urine Occult Blood Negative (Negative) Urine Nitrate Negative (Negative) Urine Bilirubin Negative (NEGATIVE) Urine Urobilinogen Normal (0.2) E.U./dL Ur Leukocyte Esterase Negative (NEGATIVE) Urine RBC None seen (0-5/HPF) Urine WBC None seen (0-5/HPF) Urine Bacteria None seen (None) Ur Culture Indicated? Culture not indicate Micro UA Comment Imaging Data CT scan - abdomen/pelvis: Radiologist's Impression: [address] [id number] Scan ReportSigned Patient: Robert Valentin EMR#: [id number]: 8Acct:[id number]/Sex: 60 / MDate of Service: 03/27/21Loc: EDAccession Number: [id number] Procedure: CT kidney ureter bladder (KUB) Ordering Provider: Anthony Ridley D.O. PROCEDURE: CT KIDNEY URETER BLADDER (KUB) INDICATIONS: Right greater than left flank pain concern for stone TECHNIQUE: Noncontrast 5 mm thick sections acquired from the diaphragms to the symphysis. 5 mm thick coronal and sagittal reformats were then performed. For radiation dose reduction, the following was used: automated exposure control, adjustment of mA and/or kV according to patient size. COMPARISON: [facility], CT, CT CHEST ABD PEL W CON, 10/03/2020, 17:47. FINDINGS: Image quality: Excellent. Lung bases: Lung bases are clear. Heart size is normal. Urinary system: Both kidneys are normal in size. Small bilateral low-density exophytic cysts. No kidney stones. No hydronephrosis or perinephric fat stranding. Both ureters appear non-dilated throughout their expected courses. Accounting for the bladder shah mostly decompressed, the bladder wall appears thickened measuring 1.1 cm, (6/39). Other solid organs: Liver is normal in size. Gallbladder is unremarkable. Pancreas is normal in contours. Spleen is normal in size. No adrenal nodules. Peritoneum and bowel: Prominent stool in the colon. The appendix is not identified. No small bowel obstruction. No free fluid or air. Nodes and vessels: No retroperitoneal or mesenteric adenopathy by size criteria. Aorta and inferior vena cava are normal in caliber. Mild calcified atherosclerotic plaque. Abdominal wall: No ventral hernias. Pelvis: No free pelvic fluid. Small fat containing right inguinal hernia. No adenopathy. Prostate calcifications. Bones: No suspicious bony lesions. S1-S2 sacral screws. S3 fracture. T12-L2 pedicle screw fixation. L1 compression fracture is unchanged. IMPRESSION: 1. No kidney stones. No hydronephrosis. 2. Prominent stool in the colon. This raises the possibility of constipation. 3. Thickening of the decompressed year bladder wall. This could be seen in cystitis or neoplastic process. -Recommend clinical and urinalysis correlation. If indicated cystoscopy could be utilized to further evaluate the urinary bladder. 4. Stable L1 and sacral compression fractures. Interval fixation hardware. Dictated by: Parveen Yoder M.D. on 03/27/2021 at 11:29 Approved by: Parveen Yoder M.D. on 03/27/2021 at 11:39 MDM Narrative Medical decision making narrative: Review of the patient's medical history so does a urine culture that was E coli resistant to Cipro/Levaquin. He was on Bactrim and the bacteria that time was susceptible to this. He states that while on this antibiotic his symptoms resolved but then returned a couple days later. Is having dysuria. Also having flank pain. CT scan was ordered for evaluation of potential other etiology of this was unremarkable. His urinalysis today is really not consistent for urinary tract infection but his symptoms are. Does not have leukocytosis. Had a discussion with him regarding his symptoms. The plan will be is to have him take peridium to see if this does not improve some of his dysuria. If his symptoms worsen or this does not help he was also given a prescription for antibiotics to start taking. If his symptoms do not improve and there was a concern for continued infection will switch him to another antibiotic rather than the Bactrim. He was instructed to contact his primary doctor's he may need to see Urology. He was given return precautions and follow-up instructions. He expressed understanding and agreement. Discharge Plan Departure Patient Disposition: Home Clinical Impression: Dysuria Instructions: DI for Dysuria -- Adult Activity Restrictions/Additional Instructions: Recommend that you increase the fluid that you are drinking. I also recommend that you take the peridium as directed. This is a bladder anesthetic and not an antibiotic. If this does not work or if your symptoms worsened and start taking the antibiotic as directed. Contact your primary provider for follow-up. Prescriptions: New phenazopyridine [Pyridium] 100 mg tablet 100 mg PO TID PRN (Reason: pain) Qty: 6 RF: 0 cephalexin 500 mg capsule 500 mg PO BID 7 Days Qty: 14 RF: 0 No Action aspirin [Adult Low Dose Aspirin] 81 mg Tablet,Delayed Release (Dr/Ec) 81 mg PO QAM RF: 0 fluoxetine 20 mg capsule 60 mg PO DAILY RF: 0 Referrals: Danish Medina MD [Primary Care Provider] -
[2021-03-27 10:52] LABS: Add Manual Diff / Slide Review NO; Basophils Absolute Auto 0 /uL (0-100); Basophils Percent Auto 1.1 % (0-2); Eosinophils Absolute Auto 100 /uL (0-450); Eosinophils Percent Auto 2.1 % (2-4); Hematocrit 43.8 % (41-53); Hemoglobin 14.6 g/dL (13.5-17.5); Lymphocytes Absolute Auto 1500 /uL (1100-4500); Lymphocytes Percent Auto 32.8 % (25-40); Mean Corpuscular HGB Conc 33.3 % (30-36); Mean Corpuscular Hemoglobin 30.5 PG (26-34); Mean Corpuscular Volume 91.8 fL (80-100); Monocytes Absolute Auto 400 /uL (0-900); Neutrophils Absolute Auto 2600 /uL (1500-7000); Platelet Count 208 X10^3/uL (150-400); Red Blood Cell Count 4.78 X10^6/uL (4.5-5.9); Red Cell Distribution Width 14.7 % (11.6-14.8); White Blood Cell Count 4.6 X10^3/uL (4.5-11.0)
[2021-03-27 11:02] VITALS: BP 120/76; PULSE 50; O2SAT 100
[2021-03-27] MEDS: SODIUM CHLORIDE 0.9% 1,000 ML 1000 ML IV (11:06)
[2021-03-27 11:08] LABS: BUN Creatinine Ratio 29.9 (6-22); Blood Urea Nitrogen 20 mg/dL (9-20); Calcium 9.3 mg/dL (8.4-10.2); Carbon Dioxide 26 mmol/L (22-32); Chloride 104 mmol/L (98-107); Estimated Glomerular Filt Rate > 60.0 mL/min (>60); Glucose 95 mg/dL (80-110); HEMOLYSIS < 15 (0-50); Potassium 4.1 mmol/L (3.4-5.1); Sodium 138 mmol/L (137-145)
[2021-03-27 11:12] LABS: Bacteria Urine None Seen; RBC Urine None Seen (0-5/HPF)
[2021-03-27 11:28] LABS: Appearance Urine UA Clear; Color Urine UA Yellow; Glucose Urine UA NEGATIVE (Negative); Protein Urine UA Negative (Negative)
[2021-03-27 11:29] LABS: Bilirubin Urine UA Negative (NEGATIVE); Ketones Urine UA NEGATIVE (NEGATIVE); Leukocyte Esterase Urine UA NEGATIVE (NEGATIVE); Nitrite Urine UA NEGATIVE (Negative); Occult Blood Urine UA Negative (Negative); Urobilinogen Urine UA Normal E.U./dL (0.2)
[2021-03-27 11:30] VITALS: BP 110/69; PULSE 46; O2SAT 96
[2021-03-27 11:32] LABS: WBC Urine None Seen (0-5/HPF)
--- NOTE | 2021-03-27 11:57 | PC.NURSE ---
patient states he has a history of low heart rate.
[2021-03-27 12:00] VITALS: BP 115/78; PULSE 50; O2SAT 97
== END 2021-03-27 12:28 | disposition home or self-care (01) ==
PROVIDERS: Emergency Provider Emergency Medicine; Family Provider Family Medicine; PCP Family Medicine
DX: R30.0 Dysuria (principal); R53.83 Other fatigue
CPT/HCPCS: 36415; 74176; 80048; 81001; 85025; 87086; 96360; 99284

== ENCOUNTER 2022-08-26 11:24 | Emergency (ER) | payer OTHER, SELFPAY ==
[2022-08-26 11:35] VITALS: BP 119/77; PULSE 51; RESP 16; TEMP 36.3; O2SAT 99; BMI 25.8
--- NOTE | 2022-08-26 11:46 | DI.US.S_ITS ---
PROCEDURE: US PERIPH VENOUS LOW EXTREM RT INDICATIONS: PAIN/SWELLING RIGHT CALF TECHNIQUE: Real-time imaging, as well as color and pulse Doppler interrogation, were performed of the lower extremity deep veins from the inguinal ligament to the popliteal fossa. COMPARISON: None. FINDINGS: The common femoral, femoral and popliteal veins are normally compressible, and free of intraluminal thrombus. Color and pulse Doppler demonstrate normal phasic intraluminal flow. There is normal augmentation response to distal compression maneuver. There is a focus echogenicity along the posterior medial calf tracking inferiorly. IMPRESSION: No deep venous thrombosis. Focus of decreased echogenicity within the mid calf. This could represent a small area hematoma or possibly fluid from trauma. Abscess can also have a similar appearance, with appropriate clinical correlation. Dictated by: Luz Maria Casas M.D. on 08/26/2022 at 13:09 Approved by: Luz Maria Casas M.D. on 08/26/2022 at 13:11
--- NOTE | 2022-08-26 12:49 | ED.EXTPRO ---
HPI - Extremity Problem <Marciano Carpio PA-C - Last Filed: 08/26/22 16:01> General Chief complaint: Extremity Problem,Nontraumatic Stated complaint: poss. blood clot in rt leg/calf Time Seen by Provider: 08/26/22 12:06 Source: patient Mode of arrival: Family Vehicle History of Present Illness HPI Narrative: Patient is a 61-year-old male who presents to the emergency room today with complaint of right leg pain and swelling that started about 3-4 days ago. Admits to being 24 hour flight about 3 weeks ago. Also states he is on Xarelto and start Xarelto about 3 years ago after he had a clot in his lung. The density of blood from the leg states that he also can bite. States that the bike daily. Denies any trauma to the right thigh or leg. Denies chest pain shortness of breath fever chills nausea vomiting. Related Data Home Medications Medication Instructions Recorded Confirmed aspirin 81 mg tablet,delayed 81 mg PO QAM 10/03/20 10/03/20 release (Adult Low Dose Aspirin) fluoxetine 20 mg capsule 60 mg PO DAILY 10/03/20 10/03/20 Previous Rx's Medication Instructions Recorded phenazopyridine 100 mg tablet 100 mg PO TID PRN pain 6 doses #6 03/27/21 (Pyridium) tabs Allergies Allergy/AdvReac Type Severity Reaction Status Date / Time celecoxib Allergy Unknown Verified 08/26/22 11:41 Review of Systems <Marciano Carpio PA-C - Last Filed: 08/26/22 16:01> Review of Systems Narrative: R.O.S.: General: No fever, chills or fatigue. Cardiovascular: No chest pain or palpitations Respiratory: No S.O.B. HEENT: No congestion, ear pain, rhinorrhea, sore throat or tinnitus Gastrointestinal: No nausea or vomiting : No urinary concerns Skin: No rash or associated abnormalities Musculoskeletal: Pain and swelling to right leg for 3 days? Neurological: Awake, alert and in not apparent distress. No Headaches, changes in vision or other related neurological concerns. Patient History <Marciano Carpio PA-C - Last Filed: 08/26/22 16:01> Medical History (Updated 08/26/22 @ 16:01 by Marciano Carpio PA-C) Pulmonary embolism Social History Smoking Status: Never smoker Smoking Status: Never smoker alcohol intake frequency: holidays/special occasions only Substance Use Type: does not use Exam <Marciano Carpio PA-C - Last Filed: 08/26/22 16:01> Narrative Exam Narrative: Physical Exam: ? General: normal appearance, well developed, well nourished, alert, and awake. Not in acute distress. ? Head: Normocephalic, no lesions. Chest: Lungs CTAB, no rales, rhonchi or wheezes. ?? Heart: RRR, no murmurs, rubs or gallops. Eyes: PERRLA, EOM's full, conjunctivae clear. ? Neuro: Physiological, no localizing findings, CN3-12 intact. ?? Extremities: Moderate Swelling with pitting edema to the right leg and calf area. Also has mild swelling to the right thigh. Right lower extremity has intact sensation to touch and appears to be slightly warmer on palpation. ? Skin: Normal, no rashes, no lesions noted. ?? PSYCHIATRIC: The mood is good, no blunted affect. Speech is clear. Thought process is linear, thought content is appropriate. The voice is without significant inflection. Gastrointestinal: Soft; NT; ND; Pos BS with Neg. rebound tenderness. No scars or major deformities noted on Visual Inspection. Initial Vital Signs Initial Vital Signs: Vital Signs Temperature 97.4 F L 08/26/22 11:35 Pulse Rate 51 L 08/26/22 11:35 Respiratory Rate 16 08/26/22 11:35 Blood Pressure 119/77 08/26/22 11:35 Pulse Oximetry 99 08/26/22 11:35 Oxygen Delivery Method 08/26/22 11:35 <Rubina Romeo MD - Last Filed: 08/27/22 11:42> Initial Vital Signs Initial Vital Signs: Vital Signs Temperature 97.4 F L 08/26/22 11:35 Pulse Rate 51 L 08/26/22 11:35 Respiratory Rate 16 08/26/22 11:35 Blood Pressure 119/77 08/26/22 11:35 Pulse Oximetry 99 08/26/22 11:35 Oxygen Delivery Method 08/26/22 11:35 Course <Marciano Carpio PA-C - Last Filed: 08/26/22 16:01> Orders Ordered: ED Orders 08/26/22 11:46 US periph venous low extrem rt Stat 08/26/22 14:10 CT abdomen pelvis wo con Stat 08/26/22 14:34 CBC Auto Diff [Complete Blood Count AUTO DIFF] Stat CMP [Comprehensive Metabolic Panel] Stat Vital Signs Vital signs: Vital Signs - 8 hr 08/26/22 11:35 Temperature 97.4 F L Pulse Rate 51 L Respiratory Rate 16 Blood Pressure 119/77 Pulse Oximetry 99 Oxygen Delivery Method Room Air <Rubina Romeo MD - Last Filed: 08/27/22 11:42> Orders Ordered: ED Orders 08/26/22 11:46 US periph venous low extrem rt Stat 08/26/22 14:10 CT abdomen pelvis wo con Stat 08/26/22 14:34 CBC Auto Diff [Complete Blood Count AUTO DIFF] Stat CMP [Comprehensive Metabolic Panel] Stat Vital Signs Vital signs: Vital Signs - 8 hr 08/26/22 11:35 Temperature 97.4 F L Pulse Rate 51 L Respiratory Rate 16 Blood Pressure 119/77 Pulse Oximetry 99 Oxygen Delivery Method Room Air MDM - Extremity (Nontraumatic) <Marciano Carpio PA-C - Last Filed: 08/26/22 16:01> Lab Data Result diagrams: 08/26/22 14:34 08/26/22 14:34 Labs: Lab Results 08/26/22 08/26/22 Range/Units 14:34 14:34 WBC 6.3 (4.5-11.0) X10^3/uL RBC 4.75 (4.5-5.9) X10^6/uL Hgb 15.2 (13.5-17.5) g/dL Hct 43.1 (41-53) % MCV 90.9 (80-100) fL MCH 32.0 (26-34) PG MCHC 35.2 (30-36) % RDW 13.2 (11.6-14.8) % Plt Count 201 (150-400) X10^3/uL Neut % (Auto) 67.6 (50-75) % Lymph % (Auto) 24.2 L (25-40) % [place] % (Auto) 5.6 (3-14) % Eos % (Auto) 2.1 (2-4) % Baso % (Auto) 0.5 (0-2) % Neut # (Auto) 4300 (2030-7578) /uL Lymph # (Auto) 1500 (4609-0628) /uL [place] # (Auto) 400 (0-900) /uL Eos # (Auto) 100 (0-450) /uL Baso # (Auto) 0 (0-100) /uL Sodium 139 (137-145) mmol/L Potassium 4.1 (3.4-5.1) mmol/L Chloride 102 (98-107) mmol/L Carbon Dioxide 29 (22-32) mmol/L BUN 17 (9-20) mg/dL Creatinine 0.77 (0.66-1.25) mg/dL Estimated GFR > 60 (>60) mL/min BUN/Creatinine Ratio 22.1 H (6-22) Glucose 94 (80-110) mg/dL Calcium 9.2 (8.4-10.2) mg/dL Total Bilirubin 0.7 (0.2-1.3) mg/dL AST 28 (17-59) IU/L ALT 21 (<50) IU/L Alkaline Phosphatase 74 (38-126) U/L Total Protein 7.7 (6.3-8.2) g/dL Albumin 4.3 (3.5-5.0) g/dL Globulin 3.4 (1.7-4.1) g/dL Albumin/Globulin Ratio 1.3 (1.0-2.8) MDM Narrative Medical decision making narrative: Patient is a 62-year-old male presents to the emergency room today with complaint of right leg swelling the last 3-4 days. Patient states is on Xarelto and he has also had a pulmonary clot in the past. Also admits to being abdomen by service writer stated he exercises provided by daily. The ultrasound of the right leg was done and was negative. Physical exam I revealed impressively large right leg compared to the left leg. They also have pitting edema. Upon further query with the patient a consultation with Dr. Romeo, we decided to order a CT scan of the abdomen and pelvis to rule out a source of blockage or the blood flow or lymphatics. Patient left the emergency room Against Medical Advice before the CT scan isolated. <Rubina Romeo MD - Last Filed: 09/26/22 11:42> Lab Data Labs: Lab Results 08/26/22 08/26/22 Range/Units 14:34 14:34 WBC 6.3 (4.5-11.0) X10^3/uL RBC 4.75 (4.5-5.9) X10^6/uL Hgb 15.2 (13.5-17.5) g/dL Hct 43.1 (41-53) % MCV 90.9 (80-100) fL MCH 32.0 (26-34) PG MCHC 35.2 (30-36) % RDW 13.2 (11.6-14.8) % Plt Count 201 (150-400) X10^3/uL Neut % (Auto) 67.6 (50-75) % Lymph % (Auto) 24.2 L (25-40) % [place] % (Auto) 5.6 (3-14) % Eos % (Auto) 2.1 (2-4) % Baso % (Auto) 0.5 (0-2) % Neut # (Auto) 4300 (8502-8403) /uL Lymph # (Auto) 1500 (0822-2515) /uL [place] # (Auto) 400 (0-900) /uL Eos # (Auto) 100 (0-450) /uL Baso # (Auto) 0 (0-100) /uL Sodium 139 (137-145) mmol/L Potassium 4.1 (3.4-5.1) mmol/L Chloride 102 (98-107) mmol/L Carbon Dioxide 29 (22-32) mmol/L BUN 17 (9-20) mg/dL Creatinine 0.77 (0.66-1.25) mg/dL Estimated GFR > 60 (>60) mL/min BUN/Creatinine Ratio 22.1 H (6-22) Glucose 94 (80-110) mg/dL Calcium 9.2 (8.4-10.2) mg/dL Total Bilirubin 0.7 (0.2-1.3) mg/dL AST 28 (17-59) IU/L ALT 21 (<50) IU/L Alkaline Phosphatase 74 (38-126) U/L Total Protein 7.7 (6.3-8.2) g/dL Albumin 4.3 (3.5-5.0) g/dL Globulin 3.4 (1.7-4.1) g/dL Albumin/Globulin Ratio 1.3 (1.0-2.8) Discharge Plan Departure Patient Disposition: Left Against Medical Advice Clinical Impression: Left against medical advice, Left leg swelling Prescriptions: No Action aspirin [Adult Low Dose Aspirin] 81 mg Tablet,Delayed Release (Dr/Ec) 81 mg PO QAM fluoxetine 20 mg capsule 60 mg PO DAILY phenazopyridine [Pyridium] 100 mg tablet 100 mg PO TID PRN (Reason: pain) Qty: 6 0RF Referrals: Danish Medina MD [Primary Care Provider] - Stand Alone Forms: Against Medical Advice <Rubina Romeo MD - Last Filed: 08/27/22 11:42> Cosign ED Attending Cosignature Attestation: I was immediately available in the department for consultation throughout this patient's visit. I agree with documentation as above. Rubina Romeo MD
--- NOTE | 2022-08-26 14:10 | DI.CT.S_ITS ---
PROCEDURE: CT ABDOMEN PELVIS WO CON INDICATIONS: Right leg swelling TECHNIQUE: Noncontrast 5 mm thick sections acquired from the diaphragms to the symphysis. 5 mm coronal and sagittal reformats were then performed. For radiation dose reduction, the following was used: automated exposure control, adjustment of mA and/or kV according to patient size. COMPARISON: [facility], CT, CT KIDNEY URETER BLADDER (KUB), 03/27/2021, 10:58. [facility], CT, CT CHEST ABD PEL W CON, 10/03/2020, 17:47. [facility], US, US PERIPH VENOUS LOW EXTREM RT, 08/26/2022, 12:26. FINDINGS: Image quality: There is artifact associated with the metallic hardware. ABDOMEN: Lung bases: Lung bases are clear. Heart size is normal. Solid organs: Liver is normal in size. Gallbladder wall is not thickened. Pancreas is normal in contours. Spleen is normal in size. No adrenal nodules. Kidneys are normal in size, without hydronephrosis or nephrolithiasis. Simple appearing exophytic cysts can be seen along the posterior aspect of the left kidney. Peritoneum and bowel: Unenhanced bowel loops demonstrate normal wall thickness and caliber. No free fluid or air. A moderate amount of stool can be seen within the colon. Nodes and vessels: No retroperitoneal or mesenteric adenopathy by size criteria. Aorta and inferior vena cava are normal in caliber. Miscellaneous: No ventral hernias. PELVIS: Genitourinary: Bladder wall thickness is normal. Prostate calcification is noted. Miscellaneous: No inguinal adenopathy. There is a mild fat containing right inguinal hernia. Bones: No suspicious bony lesions. No acute appearing vertebral body compression fractures. There is a remote L1 compression deformity seen, with 30% loss of height centrally. Lumbar spine fixation hardware is seen. Mild levoconvex scoliotic curvature is noted. Focal L5-S1 degenerative change is seen. Milder degenerative changes are seen elsewhere. Sacral fixation screws are seen. IMPRESSION: A cause of right leg swelling is not seen. No retroperitoneal or pelvic masses are seen. There is a moderate amount of stool seen within the colon. Please correlate with an underlying history of constipation. Incidental note is made of: Simple appearing exophytic left renal cysts Lumbar spine fixation hardware, with streak artifact Remote L1 central compression deformity Levoconvex scoliotic curvature Prostate calcification Mild fat containing right inguinal hernia Focal L5-S1 degenerative change Sacral fixation screws Dictated by: Gil Penny M.D. on 08/26/2022 at 14:05 Approved by: Gil Penny M.D. on 08/26/2022 at 14:10
[2022-08-26 14:40] LABS: Add Manual Diff / Slide Review NO; Basophils Absolute Auto 0 /uL (0-100); Basophils Percent Auto 0.5 % (0-2); Eosinophils Absolute Auto 100 /uL (0-450); Eosinophils Percent Auto 2.1 % (2-4); Hematocrit 43.1 % (41-53); Hemoglobin 15.2 g/dL (13.5-17.5); Lymphocytes Absolute Auto 1500 /uL (1100-4500); Lymphocytes Percent Auto 24.2 % (25-40); Mean Corpuscular HGB Conc 35.2 % (30-36); Mean Corpuscular Volume 90.9 fL (80-100); Monocytes Absolute Auto 400 /uL (0-900); Monocytes Percent Auto 5.6 % (3-14); Neutrophils Absolute Auto 4300 /uL (1500-7000); Neutrophils Percent Auto 67.6 % (50-75); Platelet Count 201 X10^3/uL (150-400); Red Blood Cell Count 4.75 X10^6/uL (4.5-5.9); Red Cell Distribution Width 13.2 % (11.6-14.8); White Blood Cell Count 6.3 X10^3/uL (4.5-11.0)
[2022-08-26 14:52] LABS: Alanine Aminotransferase 21 IU/L (<50); Albumin 4.3 g/dL (3.5-5.0); Albumin Globulin Ratio 1.3 (1.0-2.8); Alkaline Phosphatase 74 U/L (38-126); Aspartate Aminotransferase 28 IU/L (17-59); BUN Creatinine Ratio 22.1 (6-22); Bilirubin Total 0.7 mg/dL (0.2-1.3); Blood Urea Nitrogen 17 mg/dL (9-20); Calcium 9.2 mg/dL (8.4-10.2); Carbon Dioxide 29 mmol/L (22-32); Chloride 102 mmol/L (98-107); Estimated Glomerular Filt Rate > 60 mL/min (>60); Globulin 3.4 g/dL (1.7-4.1); Glucose 94 mg/dL (80-110); HEMOLYSIS < 15 (0-50); Potassium 4.1 mmol/L (3.4-5.1); Sodium 139 mmol/L (137-145); Total Protein 7.7 g/dL (6.3-8.2)
[2022-08-26 15:15] VITALS: BP 113/74; PULSE 55; RESP 19; TEMP 35.9; O2SAT 97
== END 2022-08-26 15:58 | disposition left against medical advice (07) ==
PROVIDERS: Emergency Provider Physician Assistant; Family Provider Family Medicine; PCP Family Medicine
DX: M79.604 Pain in right leg (principal); M79.89 Other specified soft tissue disorders
CPT/HCPCS: 74176; 80053; 85025; 93971; 99284

== ENCOUNTER 2022-09-03 11:27 | Emergency (ER) | payer OTHER, SELFPAY ==
[2022-09-03 11:46] VITALS: BP 131/78; PULSE 60; RESP 17; TEMP 36.9; O2SAT 98; BMI 25.1
--- NOTE | 2022-09-03 13:56 | DI.US.S_ITS ---
PROCEDURE: US [facility] VENOUS LOW EXTREM RT INDICATIONS: Leg pain, swelling TECHNIQUE: Real-time imaging, as well as color and pulse Doppler interrogation, were performed of the lower extremity deep veins from the inguinal ligament to the popliteal fossa. COMPARISON: [facility], , US [facility] VENOUS LOW EXTREM RT, 08/26/2022, 12:26. FINDINGS: The common femoral, femoral and popliteal veins are normally compressible, and free of intraluminal thrombus. Color and pulse Doppler demonstrate normal phasic intraluminal flow. There is normal augmentation response to distal compression maneuver. 4.4 x 4.0 cm popliteal cyst. There is an additional complex cystic collection in the calf measuring 7.9 x 10 by 2.6 cm IMPRESSION: No evidence of deep venous thrombosis, right lower extremity Complex fluid collection in the calf probably reflects intramuscular hematoma Approved by: Fernando Olivares M.D. on 09/03/2022 at 13:49
--- NOTE | 2022-09-03 13:58 | ED.EXTPRO ---
HPI - Extremity Problem <Cheryl Almonte PA-C - Last Filed: 09/03/22 15:50> General Chief complaint: Extremity Problem,Nontraumatic Stated complaint: Rt leg swelling, pain & discoloration Time Seen by Provider: 09/03/22 13:53 Source: patient and family Mode of arrival: Ambulatory History of Present Illness HPI Narrative: 62-year-old male with a prior history of pulmonary embolism, on Xarelto, presents to the ED with 2 weeks of right lower leg pain. Patient was seen on 08/26/2022 at our ED, ultrasound Doppler was negative for DVTs, showed possible fluid collection that could be an abscess versus a hematoma. CT abdomen pelvis was also done, without acute findings. Patient had to leave due to time constraints, prior to the full workup coming back.Patient was communicated that he did not have a DVT prior to leaving. Patient states that since he left the ED last week, the pain that was primarily in the popliteal region of the right knee has migrated lower down into the right calf. Patient denies numbness, tingling, weakness. Patient is able to bear weight and walk. Patient states his pain is aggravated by walking. Patient denies chest pain, shortness of breath, nausea, vomiting. Patient states that he was on a 30 hour flight to [place] and [facility] 3 weeks ago. Patient also states that he did a lot of biking while he was on holiday. Related Data Home Medications Medication Instructions Recorded Confirmed aspirin 81 mg tablet,delayed 81 mg PO QAM 10/03/20 10/03/20 release (Adult Low Dose Aspirin) fluoxetine 20 mg capsule 60 mg PO DAILY 10/03/20 10/03/20 donepezil 5 mg tablet 5 mg PO DAILY 09/03/22 09/03/22 rivaroxaban 20 mg tablet (Xarelto) 20 mg PO DAILY 09/03/22 09/03/22 Previous Rx's Medication Instructions Recorded phenazopyridine 100 mg tablet 100 mg PO TID PRN pain 6 doses #6 03/27/21 (Pyridium) tabs Allergies Allergy/AdvReac Type Severity Reaction Status Date / Time celecoxib Allergy Unknown Verified 09/03/22 11:48 Review of Systems <Cheryl Almonte PA-C - Last Filed: 09/03/22 15:50> Review of Systems ROS Unobtainable: All systems reviewed & are unremarkable except as noted in HPI and below Constitutional Constitutional: Denies chills, Denies fatigue, Denies fever(s), Denies frequent falls, Denies lethargy and Denies weakness Eyes Eyes: Denies change in vision, Denies eye discharge, Denies irritation and Denies loss of vision ENT Ears, Nose, Mouth, and Throat: Denies change in voice, Denies dizziness, Denies neck pain, Denies sore throat and Denies throat swelling Cardiovascular Cardiovascular: Denies chest pain, Denies irregular heart rhythm, Denies lightheadedness, Denies palpitations, Denies dyspnea, Denies dyspnea on exertion and Denies orthopnea Respiratory Respiratory: Denies cough, Denies dyspnea, Denies dyspnea on exertion and Denies wheezing Gastrointestinal Gastrointestinal: Denies abdominal pain, Denies change in bowel habits, Denies diarrhea, Denies nausea and Denies vomiting Genitourinary Genitourinary: Denies hematuria, Denies flank pain, Denies urinary incontinence and Denies urinary urgency Musculoskeletal Musculoskeletal: Denies back pain, Denies muscle weakness, Denies neck pain, Denies numbness and Denies tingling Integumentary/Breasts Skin/Breast: Denies pruritus, Denies erythema, Denies rash and Denies wounds Neurologic Neurologic: Denies behavioral changes, Denies confusion, Denies dizziness, Denies frequent falls, Denies loss of vision, Denies numbness, Denies tingling and Denies weakness Psychiatric Psychiatric: Denies anxiety, Denies behavioral changes, Denies confusion, Denies depression, Denies homicidal ideation and Denies suicidal ideation Endocrine Endocrine: Denies fatigue, Denies flushing and Denies palpitations Hematologic/Lymphatic Hematologic/Lymphatic: Denies easy bruising Allergic/Immunologic Allergic/Immunologic: Denies urticaria, Denies throat swelling and Denies wheezing Patient History <Cheryl Almonte PA-C - Last Filed: 09/03/22 15:50> Medical History (Updated 09/03/22 @ 15:47 by Cheryl Almonte PA-C) Pulmonary embolism Social History Smoking Status: Never smoker Smoking Status: Never smoker alcohol intake frequency: holidays/special occasions only Substance Use Type: does not use Exam <Cheryl Almonte PA-C - Last Filed: 09/03/22 15:50> Narrative Exam Narrative: Const General:?cooperative, healthy appearing and comfortable [facility] Head:?normal to inspection Ears:?hearing grossly normal bilaterally Nose:?external nose normal Face and sinus:?normal facial exam and sinuses nontender Mouth:?oral mucosae normal Throat:?posterior oropharynx normal Eyes General:?appearance normal, both eyes and all related structures Neck Neck:?normal visual inspection and no lymphadenopathy noted Resp Effort & Inspection:?normal respiratory effort Auscultation:?clear to auscultation bilaterally Cardio Rate:?regular rate Rhythm:?regular rhythm Musculoskeletal Visible area of ecchymosis immediately below the popliteal region of the right knee. A Miner cyst is palpable. There is significant swelling of the right lower leg compared to the left, there is tenderness of palpation in the mid calf, palpable induration. No erythema, no wound visualized that might indicate an abscess. Pedal pulses intact. Compartments are soft. Strength and sensation intact. Full range of motion. Patient is able to bear weight and walk. Patient is neurovascularly intact. Neuro General:?patient alert, patient awake and patient oriented x3 Initial Vital Signs Initial Vital Signs: Vital Signs Temperature 98.4 F 09/03/22 11:46 Pulse Rate 60 09/03/22 11:46 Respiratory Rate 17 09/03/22 11:46 Blood Pressure 131/78 09/03/22 11:46 Pulse Oximetry 98 09/03/22 11:46 Oxygen Delivery Method 09/03/22 11:46 <Rubina Romeo MD - Last Filed: 09/03/22 17:44> Initial Vital Signs Initial Vital Signs: Vital Signs Temperature 98.4 F 09/03/22 11:46 Pulse Rate 60 09/03/22 11:46 Respiratory Rate 17 09/03/22 11:46 Blood Pressure 131/78 09/03/22 11:46 Pulse Oximetry 98 09/03/22 11:46 Oxygen Delivery Method 09/03/22 11:46 Course <Cheryl Almonte PA-C - Last Filed: 09/03/22 15:50> Orders Ordered: ED Orders 09/03/22 13:56 US periph venous low extrem rt Stat 09/03/22 14:22 XR knee RT 3V Stat XR tibia fibula RT 2V Stat Vital Signs Vital signs: Vital Signs - 8 hr 09/03/22 11:46 09/03/22 14:09 09/03/22 14:09 Temperature 98.4 F Pulse Rate 60 61 Pulse Rate [Left Posterior Tibial] Respiratory Rate 17 Blood Pressure 131/78 130/83 Pulse Oximetry 98 99 Oxygen Delivery Method Room Air 09/03/22 14:39 09/03/22 14:30 09/03/22 14:30 Temperature Pulse Rate 55 L Pulse Rate [Left Posterior Tibial] 64 Respiratory Rate Blood Pressure 121/74 Pulse Oximetry 95 Oxygen Delivery Method 09/03/22 15:00 09/03/22 15:00 09/03/22 15:30 Temperature Pulse Rate 53 L 65 Pulse Rate [Left Posterior Tibial] Respiratory Rate Blood Pressure 123/72 Pulse Oximetry 96 Oxygen Delivery Method <Rubina Romeo MD - Last Filed: 09/03/22 17:44> Orders Ordered: ED Orders 09/03/22 13:56 US periph venous low extrem rt Stat 09/03/22 14:22 XR knee RT 3V Stat XR tibia fibula RT 2V Stat Vital Signs Vital signs: Vital Signs - 8 hr 09/03/22 11:46 09/03/22 14:09 09/03/22 14:09 Temperature 98.4 F Pulse Rate 60 61 Pulse Rate [Left Posterior Tibial] Respiratory Rate 17 Blood Pressure 131/78 130/83 Pulse Oximetry 98 99 Oxygen Delivery Method Room Air 09/03/22 14:39 09/03/22 14:30 09/03/22 14:30 Temperature Pulse Rate 55 L Pulse Rate [Left Posterior Tibial] 64 Respiratory Rate Blood Pressure 121/74 Pulse Oximetry 95 Oxygen Delivery Method 09/03/22 15:00 09/03/22 15:00 09/03/22 15:30 Temperature Pulse Rate 53 L 65 Pulse Rate [Left Posterior Tibial] Respiratory Rate Blood Pressure 123/72 Pulse Oximetry 96 Oxygen Delivery Method MDM - Extremity (Nontraumatic) <Cheryl Almonte PA-C - Last Filed: 09/03/22 15:50> Imaging Data Extremity x-ray #1: Radiologist's Impression: PROCEDURE:? XR TIBIA FUBULA RT 2V ? INDICATIONS:? Calf swelling ? TECHNIQUE:? 2 views of the tibia and fibula were acquired.? ? COMPARISON:? None. ? FINDINGS:? ? Bones:? No fractures or dislocations.? Total knee arthroplasty.? Extensive hardware at the foot.? No suspicious bony lesions.? ? Soft tissues:? No suspicious soft tissue calcifications or masses.? ? IMPRESSION:? No fracture demonstrated. ? ? Dictated by: Parveen Yoder M.D. on 09/03/2022 at 15:09 ? ? Approved by: Parveen Yoder M.D. on 09/03/2022 at 15:11 ? Extremity x-ray #2: Radiologist's Impression: PROCEDURE:? XR KNEE RT 3V ? INDICATIONS:? ?Popliteal cyst ? TECHNIQUE:? 3 views of the knee were acquired.? ? COMPARISON:? [facility], PERIP VENOUS LOW EXTREM RT, 09/03/2022, 14:21.? [facility], CR, XR KNEE ARTHRITIC SERIES LT, 05/26/2020, 12:04.? [facility], MICHAEL, XR TIBIA FIBULA RT 2V, 09/03/2022, 14:28.? [facility] 11/30/[facility], 14:24. ? FINDINGS:? ? Bones:? Right knee arthroplasty.? No periprosthetic lucency to suggest loosening or infection.? No fractures or dislocations.? No suspicious bony lesions.? ? Soft tissues:? Small joint effusion.? No suspicious soft tissue calcifications.? Heterogeneous appearance of the popliteal fossa soft tissues.? ? ? IMPRESSION:? Stable appearance of the right knee arthroplasty. ? ? ? Dictated by: Parveen Yoder M.D. on 09/03/2022 at 15:06 ? ? Approved by: Parveen Yoder M.D. on 09/03/2022 at 15:08 ? US - DVT: Radiologist's Impression: PROCEDURE:? US PERIPH VENOUS LOW EXTREM RT ? INDICATIONS:? Leg pain, swelling ? TECHNIQUE:? Real-time imaging, as well as color and pulse Doppler interrogation, were performed of the lower extremity deep veins from the inguinal ligament to the popliteal fossa.? ? COMPARISON:? [facility], PERIP VENOUS LOW EXTREM RT, 08/26/2022, 12:26. ? FINDINGS:? The common femoral, femoral and popliteal veins are normally compressible, and free of intraluminal thrombus.? Color and pulse Doppler demonstrate normal phasic intraluminal flow.? There is normal augmentation response to distal compression maneuver. ? ? 4.4 x 4.0 cm popliteal cyst.? There is an additional complex cystic collection in the calf measuring 7.9 x 10 by 2.6 cm ? IMPRESSION:? ? No evidence of deep venous thrombosis, right lower extremity ? Complex fluid collection in the calf probably reflects intramuscular hematoma ? ? Approved by: Fernando Olivares M.D. on 09/03/2022 at 13:49? MDM Narrative Medical decision making narrative: 62-year-old male with a prior history of pulmonary embolism, on Xarelto, presents to the ED with 2 weeks of right lower leg pain. Concern for DVT versus abscess versus hematoma versus ruptured popliteal cyst versus fracture/dislocation. Will obtain x-rays, ultrasound right lower extremity. Will reassess. X-rays without acute findings. Ultrasound shows a complex fluid collection in the calf probably a intramuscular hematoma. Patient's physical exam is reassuring, compartments are soft, patient is neurovascularly intact. Recommend rest, warmth, elevation. Recommend follow-up with ortho. ED return precautions discussed with patient. Patient verbalized understanding. Discharge Plan Departure Patient Disposition: Home Clinical Impression: Leg pain Instructions: DI for Miner Cyst Activity Restrictions/Additional Instructions: You were evaluated in the ED today for right-sided lower leg pain. Your x-rays were normal. Your ultrasound showed a possible hematoma in the right calf, a Miner cyst. Your physical exam was reassuring. Please follow-up with [facility] at [phone] for further evaluation. You may take Tylenol for the pain. Recommend rest, elevating your right leg above your heart level, applying warmth. Please return to the ED if the swelling worsens, the lower leg feels tense, you have numbness, tingling, weakness. Prescriptions: No Action aspirin [Adult Low Dose Aspirin] 81 mg Tablet,Delayed Release (Dr/Ec) 81 mg PO QAM fluoxetine 20 mg capsule 60 mg PO DAILY phenazopyridine [Pyridium] 100 mg tablet 100 mg PO TID PRN (Reason: pain) Qty: 6 0RF donepezil 5 mg tablet 5 mg PO DAILY Xarelto 20 mg tablet 20 mg PO DAILY Referrals: Danish Medina MD [Primary Care Provider] - Visit Report Forms: Patient Portal/API <Rubina Romeo MD - Last Filed: 09/03/22 17:44> Cosign ED Attending Cosignature Attestation: I was immediately available in the department for consultation throughout this patient's visit. I agree with documentation as above. Rubina Romeo MD
[2022-09-03 14:09] VITALS: BP 130/83; PULSE 61; O2SAT 99
--- NOTE | 2022-09-03 14:22 | DI.RAD.S_ITS ---
PROCEDURE: XR KNEE RT 3V INDICATIONS: ?Popliteal cyst TECHNIQUE: 3 views of the knee were acquired. COMPARISON: [facility], , US PERIPH VENOUS LOW EXTREM RT, 09/03/2022, 14:21. [facility], CR, XR KNEE ARTHRITIC SERIES LT, 05/26/2020, 12:04. [facility], CR, XR TIBIA FIBULA RT 2V, 09/03/2022, 14:28. [facility], , KNEE 3V LEFT, 11/30/2017, 14:24. FINDINGS: Bones: Right knee arthroplasty. No periprosthetic lucency to suggest loosening or infection. No fractures or dislocations. No suspicious bony lesions. Soft tissues: Small joint effusion. No suspicious soft tissue calcifications. Heterogeneous appearance of the popliteal fossa soft tissues. IMPRESSION: Stable appearance of the right knee arthroplasty. Dictated by: Parveen Yoder M.D. on 09/03/2022 at 15:06 Approved by: Parveen Yoder M.D. on 09/03/2022 at 15:08
--- NOTE | 2022-09-03 14:22 | DI.RAD.S_ITS ---
PROCEDURE: XR TIBIA FUBULA RT 2V INDICATIONS: Calf swelling TECHNIQUE: 2 views of the tibia and fibula were acquired. COMPARISON: None. FINDINGS: Bones: No fractures or dislocations. Total knee arthroplasty. Extensive hardware at the foot. No suspicious bony lesions. Soft tissues: No suspicious soft tissue calcifications or masses. IMPRESSION: No fracture demonstrated. Dictated by: Parveen Yoder M.D. on 09/03/2022 at 15:09 Approved by: Parveen Yoder M.D. on 09/03/2022 at 15:11
[2022-09-03 14:30] VITALS: BP 121/74; PULSE 55; O2SAT 95
[2022-09-03 14:39] VITALS: PULSE 64
[2022-09-03 15:00] VITALS: BP 123/72; PULSE 53; O2SAT 96
[2022-09-03 15:30] VITALS: PULSE 65
== END 2022-09-03 15:54 | disposition home or self-care (01) ==
PROVIDERS: Emergency Provider Student in an Organized Health Care Education/Training Program; Family Provider Family Medicine; PCP Family Medicine
DX: M79.605 Pain in left leg (principal); M71.21 Synovial cyst of popliteal space [Baker], right knee; Z86.711 Personal history of pulmonary embolism; Z79.01 Long term (current) use of anticoagulants
CPT/HCPCS: 73562; 73590; 93971; 99283; 99284

== ENCOUNTER 2024-01-19 06:31 | Emergency (ER) | payer OTHER, SELFPAY ==
[2024-01-19] VITALS (17 sets, daily range): BP systolic 103–125; BP diastolic 64–78; PULSE 38–66; RESP 16–23; TEMP 36; O2SAT 92–98; BMI 26.9
--- NOTE | 2024-01-19 06:43 | ED.CHESTPAIN ---
HPI - Chest Pain <Millie Go MD - Last Filed: 01/19/24 17:52> General Chief Complaint: Abdominal Pain Stated Complaint: lower left abd pain history of blood clots Time Seen by Provider: 01/19/24 06:42 History of Present Illness HPI narrative: 63-year-old male with history of Alzheimer's dementia, remote history of pulmonary embolism in 2019 presents by private vehicle from home for 2 days of left-sided chest pain. Pain started after going to an exercise class. Attempted to take Tylenol, Motrin, baby aspirin at home without relief, and so today decided to present for evaluation. History is obtained with help of at bedside. Patient describes the pain as aching, constant, nonradiating. Has been states that they are trying to start a new Alzheimer's medication that has just been approved, but patient has to be off of blood thinners in order to take this medication. Patient stopped taking his Xarelto 2 months ago after receiving permission from his primary care doctor Related Data Home Medications Medication Instructions Recorded Confirmed aspirin 81 mg tablet,delayed 81 mg PO QAM 10/03/20 10/03/20 release (Adult Low Dose Aspirin) fluoxetine 20 mg capsule 60 mg PO DAILY 10/03/20 10/03/20 donepezil 5 mg tablet 5 mg PO DAILY 09/03/22 09/03/22 rivaroxaban 20 mg tablet (Xarelto) 20 mg PO DAILY 09/03/22 09/03/22 Previous Rx's Medication Instructions Recorded phenazopyridine 100 mg tablet 100 mg PO TID PRN pain 6 doses #6 03/27/21 (Pyridium) tabs Allergies Allergy/AdvReac Type Severity Reaction Status Date / Time celecoxib Allergy Unknown Verified 09/03/22 11:48 Review of Systems <Millie Go MD - Last Filed: 01/19/24 17:52> Review of Systems Narrative: Negative except as noted above Patient History <Millie Go MD - Last Filed: 01/19/24 17:52> Medical History (Updated 01/19/24 @ 10:49 by Denia Gutierrez DO) Pulmonary embolism Social History Smoking Status: Never smoker Smoking Status: Never smoker alcohol intake frequency: holidays/special occasions only Substance Use Type: does not use Exam <Millie Go MD - Last Filed: 01/19/24 17:52> Narrative Exam Narrative: Const: Awake, alert, no acute distress, nontoxic appearing Cardiac: regular rate, regular rhythm, left-sided reproducible tenderness to palpation along the pectoralis muscle RESP: unlabored, clear bilaterally, no wheezing GI: Atraumatic, soft, nontender, nondistended, no rebound, no guarding MSK: Atraumatic, full range of motion, pulses equal Skin: Warm, Dry, intact, no rashes Neuro: AO x3, CN II-XII grossly intact, moves all extremities Psych: affect normal, mood normal, not suicidal, not homicidal Initial Vital Signs Initial Vital Signs: Vital Signs Pulse Rate 63 01/19/24 06:40 Blood Pressure 125/78 01/19/24 06:40 Pulse Oximetry 94 01/19/24 06:40 <Denia Gutierrez DO - Last Filed: 01/19/24 12:42> Initial Vital Signs Initial Vital Signs: Vital Signs Pulse Rate 63 01/19/24 06:40 Blood Pressure 125/78 01/19/24 06:40 Pulse Oximetry 94 01/19/24 06:40 Scores <Millie Go MD - Last Filed: 01/19/24 17:52> HEART Score Heart Score Total: 2 <Denia Gutierrez DO - Last Filed: 01/19/24 12:42> HEART Score Heart Score history: Slightly Suspicious Heart Score EKG: Normal Heart Score Age: > or = 65 years old Heart Score risk factors: No known risk factors Heart Score troponin: < or = to normal limit Heart Score Total: 2 Course <Millie Go MD - Last Filed: 01/19/24 17:52> Orders Ordered: ED Orders 01/19/24 09:00 BNP [NT-proBNP (BNP-Adult 18+)] Stat Trop I [Troponin I] Stat 01/19/24 09:06 EKG-12 Lead Stat Discontinued Medications Morphine Sulfate (Morphine 4 Mg/Ml Inj) 4 mg IV NOW ONE Stop: 01/19/24 06:43 Last Admin: 01/19/24 07:02 Dose: 4 mg Documented By: SB Vital Signs Vital signs: Vital Signs - 8 hr 01/19/24 09:52 01/19/24 09:52 01/19/24 09:59 Pulse Rate 40 L 40 L Respiratory Rate 21 20 Blood Pressure 113/75 113/75 Pulse Oximetry 97 98 Oxygen Delivery Method Room Air 01/19/24 10:00 01/19/24 10:00 01/19/24 10:30 Pulse Rate 38 L Respiratory Rate 16 Blood Pressure 112/76 110/75 Pulse Oximetry 97 Oxygen Delivery Method 01/19/24 10:30 Pulse Rate 46 L Respiratory Rate 21 Blood Pressure Pulse Oximetry 96 Oxygen Delivery Method <Denia Gutierrez DO - Last Filed: 01/19/24 12:42> Orders Ordered: ED Orders 01/19/24 09:00 BNP [NT-proBNP (BNP-Adult 18+)] Stat Trop I [Troponin I] Stat 01/19/24 09:06 EKG-12 Lead Stat Discontinued Medications Morphine Sulfate (Morphine 4 Mg/Ml Inj) 4 mg IV NOW ONE Stop: 01/19/24 06:43 Last Admin: 01/19/24 07:02 Dose: 4 mg Documented By: SB Vital Signs Vital signs: Vital Signs - 8 hr 01/19/24 09:52 01/19/24 09:52 01/19/24 09:59 Pulse Rate 40 L 40 L Respiratory Rate 21 20 Blood Pressure 113/75 113/75 Pulse Oximetry 97 98 Oxygen Delivery Method Room Air 01/19/24 10:00 01/19/24 10:00 01/19/24 10:30 Pulse Rate 38 L Respiratory Rate 16 Blood Pressure 112/76 110/75 Pulse Oximetry 97 Oxygen Delivery Method 01/19/24 10:30 Pulse Rate 46 L Respiratory Rate 21 Blood Pressure Pulse Oximetry 96 Oxygen Delivery Method MDM - Chest Pain <Millie Go MD - Last Filed: 01/19/24 17:52> Differential Diagnosis Differential diagnosis: Likely fracture of rib, pneumothorax and stable angina Lab Data 01/19/24 07:03 01/19/24 07:03 Labs: Lab Results 01/19/24 01/19/24 Range/Units 07:03 09:00 WBC 3.8 L (4.5-11.0) X10^3/uL RBC 4.59 (4.5-5.9) X10^6/uL Hgb 14.4 (13.5-17.5) g/dL Hct 42.1 (41-53) % MCV 91.9 (80-100) fL MCH 31.3 (26-34) PG MCHC 34.1 (30-36) % RDW 13.6 (11.6-14.8) % Plt Count 176 (150-400) X10^3/uL Neut % (Auto) 58.2 (50-75) % Lymph % (Auto) 31.8 (25-40) % Schuyler % (Auto) 7.4 (3-14) % Eos % (Auto) 1.7 L (2-4) % Baso % (Auto) 0.9 (0-2) % Neut # (Auto) 2200 (8533-9348) /uL Lymph # (Auto) 1200 (3991-8390) /uL Schuyler # (Auto) 300 (0-900) /uL Eos # (Auto) 100 (0-450) /uL Baso # (Auto) 0 (0-100) /uL PT 12.5 (9.4-12.5) SECONDS INR 1.1 (0.9-1.3) D-Dimer 1055 H (<500) ng/ml Sodium 137 (137-145) mmol/L Potassium 4.4 (3.4-5.1) mmol/L Chloride 106 (98-107) mmol/L Carbon Dioxide 22 (22-32) mmol/L BUN 20 (9-20) mg/dL Creatinine 0.62 L (0.66-1.25) mg/dL Estimated GFR > 60 (>60) mL/min BUN/Creatinine Ratio 32.3 H (6-22) Glucose 92 (80-110) mg/dL Calcium 9.1 (8.4-10.2) mg/dL Total Bilirubin 1.2 (0.2-1.3) mg/dL AST 28 (17-59) IU/L ALT 18 (<50) IU/L Alkaline Phosphatase 52 (38-126) U/L Total Creatine Kinase 110 (55-170) U/L Troponin I < 0.012 < 0.012 (0.01-0.034) ng/mL NT-Pro-B Natriuret Pep 42 41 (<125) pg/mL Total Protein 7.0 (6.3-8.2) g/dL Albumin 4.0 (3.5-5.0) g/dL Globulin 3.0 (1.7-4.1) g/dL Albumin/Globulin Ratio 1.3 (1.0-2.8) MDM Narrative Medical decision making narrative: Well-appearing patient with 2 days of reproducible left-sided chest pain. Has been reports that primary concern is blood clot, however patient's initial pulmonary embolism followed from operations on his foot. Laboratory work, EKG, chest x-ray ordered. Care of patient is signed out to Dr. Gutierrez at 0700 <Denia Gutierrez, DO - Last Filed: 01/19/24 12:42> Lab Data Labs: Lab Results 01/19/24 01/19/24 Range/Units 07:03 09:00 WBC 3.8 L (4.5-11.0) X10^3/uL RBC 4.59 (4.5-5.9) X10^6/uL Hgb 14.4 (13.5-17.5) g/dL Hct 42.1 (41-53) % MCV 91.9 (80-100) fL MCH 31.3 (26-34) PG MCHC 34.1 (30-36) % RDW 13.6 (11.6-14.8) % Plt Count 176 (150-400) X10^3/uL Neut % (Auto) 58.2 (50-75) % Lymph % (Auto) 31.8 (25-40) % Schuyler % (Auto) 7.4 (3-14) % Eos % (Auto) 1.7 L (2-4) % Baso % (Auto) 0.9 (0-2) % Neut # (Auto) 2200 (7884-7090) /uL Lymph # (Auto) 1200 (8825-6463) /uL Schuyler # (Auto) 300 (0-900) /uL Eos # (Auto) 100 (0-450) /uL Baso # (Auto) 0 (0-100) /uL PT 12.5 (9.4-12.5) SECONDS INR 1.1 (0.9-1.3) D-Dimer 1055 H (<500) ng/ml Sodium 137 (137-145) mmol/L Potassium 4.4 (3.4-5.1) mmol/L Chloride 106 (98-107) mmol/L Carbon Dioxide 22 (22-32) mmol/L BUN 20 (9-20) mg/dL Creatinine 0.62 L (0.66-1.25) mg/dL Estimated GFR > 60 (>60) mL/min BUN/Creatinine Ratio 32.3 H (6-22) Glucose 92 (80-110) mg/dL Calcium 9.1 (8.4-10.2) mg/dL Total Bilirubin 1.2 (0.2-1.3) mg/dL AST 28 (17-59) IU/L ALT 18 (<50) IU/L Alkaline Phosphatase 52 (38-126) U/L Total Creatine Kinase 110 (55-170) U/L Troponin I < 0.012 < 0.012 (0.01-0.034) ng/mL NT-Pro-B Natriuret Pep 42 41 (<125) pg/mL Total Protein 7.0 (6.3-8.2) g/dL Albumin 4.0 (3.5-5.0) g/dL Globulin 3.0 (1.7-4.1) g/dL Albumin/Globulin Ratio 1.3 (1.0-2.8) Imaging Data CT scan - chest: Radiologist's Impression: PROCEDURE: CT ANGIO CHEST PE PROTOCOL INDICATIONS: lefts side chest pain hx pe high dimer no anticoagulation TECHNIQUE: After the administration of intravenous contrast, 2 mm thick sections acquired from the pulmonary apices to the posterior costophrenic angles. 3-dimensional maximum intensity projection (MIP) coronal and sagittal reformats were then acquired through the thorax. For radiation dose reduction, the following was used: automated exposure control, adjustment of mA and/or kV according to patient size. COMPARISON: None. FINDINGS: Image quality: Diagnostic. Pulmonary arteries: Pulmonary arteries are normal in size, and demonstrate no intraluminal filling defects to suggest central pulmonary embolism. Lower Neck: No enlarged lymph nodes. Thyroid: Normal CT appearance. Axillae: No enlarged lymph nodes. Chest Wall: Unremarkable. Bones: Partially imaged thoracolumbar posterior fusion hardware. No acute fractures Lungs and Pleura: Strandy septal and interstitial thickening at both lower lungs with small patches of alveolar opacity. No pleural effusions. Mild gravitational changes dependently bilaterally. Central and peripheral airways are normal without bronchial wall thickening or bronchiectasis. Heart: Cardiomegaly. Moderate coronary artery calcification. No pericardial effusion. Thoracic Vessels: No aortic aneurysm. Mediastinum and Vera: No enlarged lymph nodes. Esophagus: No wall thickening. No hiatal hernia. Upper Abdomen: Visualized upper abdomen solid organs and bowel loops appear normal. IMPRESSION: No pulmonary embolus. Gravitational changes and bibasilar mixed alveolar and interstitial opacity, potentially mild edema, less likely infection. No pleural effusion. Cardiomegaly. Dictated by: Sissy Herring M.D. on 01/19/2024 at 9:05 Chest x-ray: Radiologist's Impression: PROCEDURE: XR CHEST 1V INDICATIONS: LEFT CHEST PAIN TECHNIQUE: One view of the chest was acquired. COMPARISON: None. FINDINGS: Surgical changes and devices: Partially evaluated posterior spinal fusion hardware.. Lungs and pleura: Mild multifocal patchy opacities throughout the left lung. No pleural effusions or pneumothorax. Mediastinum: Mediastinal contours appear normal. Heart size is normal. Bones and chest wall: No suspicious bony lesions. Overlying soft tissues appear unremarkable. IMPRESSION: Left basal opacities may represent atelectasis, aspiration or pneumonia in appropriate clinical setting. Findings are concordant with preliminary interpretation provided by [facility]. ECG Data Interpretation: EKG 1. Sinus rhythm with T-wave inversions noted in 1 and aVL, upright T-waves in AVR no ST elevations or depressions heart rate 49 OR interval 206 QRS 90 QTC 392 EKG 2. Normal sinus rhythm with upright T-waves in 1 and aVL, inverted T-wave in AVR no ST changes there is no actually T-wave inversion noted in lead 3 only EKG 3. Sinus rhythm similar to prior, EKG 2. High suspicion for limb lead reversal on 1st EKGs [facility] Narrative Medical decision making narrative: Well-appearing patient with 2 days of reproducible left-sided chest pain. Has been reports that primary concern is blood clot, however patient's initial pulmonary embolism followed from operations on his foot. Laboratory work, EKG, chest x-ray ordered. Care of patient is signed out to Dr. Gutierrze at 0700 Patient signed out to me by Dr. Go I have seen evaluated patient myself. He is reproducible left-sided pain. Had increasing pain this morning no significant shortness of breath. Not requiring any pain in the ED. It is reproducible with palpation but not with arm movement or deep breathing. Blood work has been reviewed he is WBC 3.8, 2- troponins D-dimer elevated greater than 1000, normal kidney function BNP [address] angio does not show any evidence of pulmonary embolism but does show moderate coronary artery calcification with cardiomegaly possible mild edema without pleural effusion or pericardial effusion Chest x-ray shows atelectasis versus aspiration versus pneumonia Patient not having cough fever or chills. Low suspicion for infectious process. He has a heart score of 2 with coronary artery calcifications. Discussed with patient and partner needing outpatient stress test. Pain definitely reproducible I have been able to elicit pain multiple times in the ER. Discharge Plan Departure Patient Disposition: Home Clinical Impression: Atypical chest pain Instructions: DI for Atypical Chest Pain Activity Restrictions/Additional Instructions: *You have been diagnosed with Atypical Chest pain *What to do: At this time you do have moderate coronary artery calcifications found on your CT. No concerning EKG changes but I do still recommend outpatient stress test and echocardiogram. Please call your current provider to have this set up as soon as possible *Continue to take medications as directed Continue aspirin 81 mg daily *Follow up with your primary care provider in 2-3 days or call [phone] *Return to ER if you should have increasing chest pain heaviness shortness of breath nauseaor any new, worsening or concerning symptoms Prescriptions: No Action aspirin [Adult Low Dose Aspirin] 81 mg Tablet,Delayed Release (Dr/Ec) 81 mg PO QAM fluoxetine 20 mg capsule 60 mg PO DAILY phenazopyridine [Pyridium] 100 mg tablet 100 mg PO TID PRN (Reason: pain) Qty: 6 0RF donepezil 5 mg tablet 5 mg PO DAILY Xarelto 20 mg tablet 20 mg PO DAILY Referrals: Danish Medina MD [Primary Care Provider] - Stand Alone Forms: Patient Portal/API
[2024-01-19] MEDS: MORPHINE 4 MG/ML INJ IV (07:02)
[2024-01-19 07:14] LABS: Add Manual Diff / Slide Review NO; Basophils Absolute Auto 0 /uL (0-100); Basophils Percent Auto 0.9 % (0-2); Eosinophils Absolute Auto 100 /uL (0-450); Eosinophils Percent Auto 1.7 % (2-4); Hematocrit 42.1 % (41-53); Hemoglobin 14.4 g/dL (13.5-17.5); Lymphocytes Absolute Auto 1200 /uL (1100-4500); Lymphocytes Percent Auto 31.8 % (25-40); Mean Corpuscular HGB Conc 34.1 % (30-36); Mean Corpuscular Hemoglobin 31.3 PG (26-34); Mean Corpuscular Volume 91.9 fL (80-100); Monocytes Absolute Auto 300 /uL (0-900); Monocytes Percent Auto 7.4 % (3-14); Neutrophils Absolute Auto 2200 /uL (1500-7000); Neutrophils Percent Auto 58.2 % (50-75); Platelet Count 176 X10^3/uL (150-400); Red Blood Cell Count 4.59 X10^6/uL (4.5-5.9); Red Cell Distribution Width 13.6 % (11.6-14.8); White Blood Cell Count 3.8 X10^3/uL (4.5-11.0)
[2024-01-19 07:26] LABS: INR 1.1 (0.9-1.3); Prothrombin Time 12.5 SECONDS (9.4-12.5)
[2024-01-19 07:30] LABS: Alanine Aminotransferase 18 IU/L (<50); Albumin Globulin Ratio 1.3 (1.0-2.8); Alkaline Phosphatase 52 U/L (38-126); Aspartate Aminotransferase 28 IU/L (17-59); BUN Creatinine Ratio 32.3 (6-22); Bilirubin Total 1.2 mg/dL (0.2-1.3); Blood Urea Nitrogen 20 mg/dL (9-20); Calcium 9.1 mg/dL (8.4-10.2); Carbon Dioxide 22 mmol/L (22-32); Chloride 106 mmol/L (98-107); Creatine Kinase 110 U/L (55-170); Estimated Glomerular Filt Rate > 60 mL/min (>60); Glucose 92 mg/dL (80-110); HEMOLYSIS 23 (0-50); Potassium 4.4 mmol/L (3.4-5.1); Sodium 137 mmol/L (137-145)
[2024-01-19 07:38] LABS: D Dimer 1055 ng/ml (<500)
[2024-01-19 07:41] LABS: NT-proBNP (BNP-Adult 18+) 42 pg/mL (<125); Troponin I < 0.012 ng/mL (0.01-0.034)
--- NOTE | 2024-01-19 07:53 | DI.CT.S_ITS ---
PROCEDURE: CT ANGIO CHEST PE PROTOCOL INDICATIONS: lefts side chest pain hx pe high dimer no anticoagulation TECHNIQUE: After the administration of intravenous contrast, 2 mm thick sections acquired from the pulmonary apices to the posterior costophrenic angles. 3-dimensional maximum intensity projection (MIP) coronal and sagittal reformats were then acquired through the thorax. For radiation dose reduction, the following was used: automated exposure control, adjustment of mA and/or kV according to patient size. COMPARISON: None. FINDINGS: Image quality: Diagnostic. Pulmonary arteries: Pulmonary arteries are normal in size, and demonstrate no intraluminal filling defects to suggest central pulmonary embolism. Lower Neck: No enlarged lymph nodes. Thyroid: Normal CT appearance. Axillae: No enlarged lymph nodes. Chest Wall: Unremarkable. Bones: Partially imaged thoracolumbar posterior fusion hardware. No acute fractures Lungs and Pleura: Strandy septal and interstitial thickening at both lower lungs with small patches of alveolar opacity. No pleural effusions. Mild gravitational changes dependently bilaterally. Central and peripheral airways are normal without bronchial wall thickening or bronchiectasis. Heart: Cardiomegaly. Moderate coronary artery calcification. No pericardial effusion. Thoracic Vessels: No aortic aneurysm. Mediastinum and Vera: No enlarged lymph nodes. Esophagus: No wall thickening. No hiatal hernia. Upper Abdomen: Visualized upper abdomen solid organs and bowel loops appear normal. IMPRESSION: No pulmonary embolus. Gravitational changes and bibasilar mixed alveolar and interstitial opacity, potentially mild edema, less likely infection. No pleural effusion. Cardiomegaly. Dictated by: Sissy Herring M.D. on 01/19/2024 at 9:05 Approved by: Sissy Herring M.D. on 01/19/2024 at 9:12
[2024-01-19 09:59] LABS: Troponin I < 0.012 ng/mL (0.01-0.034)
[2024-01-19 10:14] LABS: NT-proBNP (BNP-Adult 18+) 41 pg/mL (<125)
== END 2024-01-19 10:55 | disposition home or self-care (01) ==
PROVIDERS: Emergency Medicine; Emergency Provider Emergency Medicine; Family Provider Family Medicine; PCP Family Medicine
DX: R07.89 Other chest pain (principal); Z86.711 Personal history of pulmonary embolism; Z79.01 Long term (current) use of anticoagulants
CPT/HCPCS: 36415; 71045; 71275; 80053; 82550; 83880; 84484; 85025; 85379; 85610; 93005; 96374; 99284; J2270; Q9967

== ENCOUNTER → 2024-02-20 10:40 | Outpatient (CLI) | payer MEDICARE, OTHER, SELFPAY ==
[2024-02-24 21:15] LABS: Fecal Immunochemical Test Negative (Negative)
== END ==
PROVIDERS: Family Provider Family Medicine; PCP Internal Medicine; Referring Provider Internal Medicine; Visit Provider Internal Medicine
DX: Z12.11 Encounter for screening for malignant neoplasm of colon (principal)
CPT/HCPCS: 82274

== ENCOUNTER → 2024-04-15 14:45 | Outpatient (CLI) | payer MEDICARE, OTHER, SELFPAY ==
[2024-04-15 17:09] LABS: Clostridium Difficile Tox PCR Negative for C. diff (Negative)
== END ==
PROVIDERS: Family Provider Family Medicine; PCP Internal Medicine; Referring Provider Internal Medicine; Visit Provider Internal Medicine
DX: R19.7 Diarrhea, unspecified (principal)
CPT/HCPCS: 87493

== ENCOUNTER → 2024-06-22 10:25 | Outpatient (CLI) | payer MEDICARE, OTHER, SELFPAY ==
[2024-06-22 11:20] LABS: Appearance Urine UA SL CLOUDY; Bilirubin Urine UA NEGATIVE (NEGATIVE); Color Urine UA YELLOW; Glucose Urine UA NEGATIVE (Negative); Ketones Urine UA NEGATIVE (NEGATIVE); Leukocyte Esterase Urine UA 2+ (NEGATIVE); Nitrite Urine UA POSITIVE (Negative); Occult Blood Urine UA 2+ (Negative); Protein Urine UA NEGATIVE (Negative); Specific Gravity Urine UA 1.025 (1.000-1.035); pH Urine UA 5.5 (4.5-8.0)
[2024-06-22 11:29] LABS: Bacteria Urine Many (>30); RBC Urine 5-10/HPF (0-5/HPF); Urine Volume 10mL (spun); WBC Urine 10-30/HPF (0-5/HPF)
[2024-06-22 11:30] LABS: Culture Indicated Urine Specimen Cultured; Squamous Epithelial Cell Urine 0-1 /HPF (0-5/HPF)
== END ==
PROVIDERS: Family Provider Family Medicine; PCP Internal Medicine; Referring Provider Internal Medicine; Visit Provider Internal Medicine
DX: R31.9 Hematuria, unspecified (principal)
CPT/HCPCS: 81001; 87077; 87086

== ENCOUNTER 2024-07-12 22:26 | Emergency (ER) | payer MEDICARE, OTHER, SELFPAY ==
--- NOTE | 2024-07-12 22:30 | PC.NURSE ---
Pt ambulates to the restroom to attempt to give urine sample. Pts in w the pt in the restroom. Pt ultimately unable to provide a urine sample. Pt ambulates to room 7 w normal gait. MARIA FERNANDA Liang advised.
[2024-07-12 22:32] VITALS: BP 129/76; PULSE 82; RESP 16; O2SAT 94; BMI 25.7
--- NOTE | 2024-07-12 22:55 | DI.RAD.S_ITS ---
PROCEDURE: XR CHEST 1V INDICATIONS: altered mental status TECHNIQUE: One view of the chest was acquired. COMPARISON: [facility], CR, XR CHEST 1V, 01/19/2024, 6:42. FINDINGS: Surgical changes and devices: None. Lungs and pleura: Streaky bibasilar opacities. Mediastinum: Mediastinal contours appear normal. Heart size is normal. Bones and chest wall: Fracture of the posterior surgical fusion hardware of the thoracolumbar spine. IMPRESSION: Streaky bibasilar opacities, suggestive of atelectasis, less likely aspiration or infection. Fracture at the posterior surgical fusion hardware the thoracolumbar spine, new since 2021. Dictated by: Asim Roa M.D. on 07/12/2024 at 23:22 Approved by: Asim Roa M.D. on 07/12/2024 at 23:28
[2024-07-12 23:15] VITALS: BP 127/80
--- NOTE | 2024-07-12 23:16 | EKG_ITS ---
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
[2024-07-12 23:18] VITALS: PULSE 73; RESP 13; O2SAT 96
[2024-07-12 23:25] LABS: Add Manual Diff / Slide Review NO; Basophils Absolute Auto 0 /uL (0-100); Basophils Percent Auto 0.4 % (0-2); Eosinophils Absolute Auto 0 /uL (0-450); Eosinophils Percent Auto 0.4 % (2-4); Hematocrit 41.6 % (41-53); Hemoglobin 14.4 g/dL (13.5-17.5); Lymphocytes Absolute Auto 1400 /uL (1100-4500); Lymphocytes Percent Auto 24.4 % (25-40); Mean Corpuscular HGB Conc 34.6 % (30-36); Mean Corpuscular Hemoglobin 31.6 PG (26-34); Mean Corpuscular Volume 91.5 fL (80-100); Monocytes Absolute Auto 500 /uL (0-900); Monocytes Percent Auto 8.7 % (3-14); Neutrophils Absolute Auto 3900 /uL (1500-7000); Neutrophils Percent Auto 66.1 % (50-75); Platelet Count 177 X10^3/uL (150-400); Red Blood Cell Count 4.54 X10^6/uL (4.5-5.9); Red Cell Distribution Width 13.4 % (11.6-14.8); White Blood Cell Count 5.9 X10^3/uL (4.5-11.0)
[2024-07-12 23:30] VITALS: PULSE 71; RESP 16; O2SAT 94
[2024-07-12 23:36] LABS: Alanine Aminotransferase 18 IU/L (<50); Albumin 4.1 g/dL (3.5-5.0); Albumin Globulin Ratio 1.3 (1.0-2.8); Alkaline Phosphatase 68 U/L (38-126); Aspartate Aminotransferase 26 IU/L (17-59); BUN Creatinine Ratio 27.5 (6-22); Blood Urea Nitrogen 22 mg/dL (9-20); Calcium 9.2 mg/dL (8.4-10.2); Carbon Dioxide 26 mmol/L (22-32); Chloride 108 mmol/L (98-107); Estimated Glomerular Filt Rate > 60 mL/min (>60); Globulin 3.1 g/dL (1.7-4.1); Glucose 113 mg/dL (80-110); HEMOLYSIS < 15 (0-50); Potassium 3.9 mmol/L (3.4-5.1); Sodium 138 mmol/L (137-145); Total Protein 7.2 g/dL (6.3-8.2)
--- NOTE | 2024-07-12 23:41 | ED_ITS ---
HPI - General Adult <Charles Liang MD - Last Filed: 07/14/24 09:17> General Chief complaint: Altered Mental Status Stated complaint: dementia, physciatric symptoms Time Seen by Provider: 07/12/24 22:59 Source: patient and family Mode of arrival: Ambulatory History of Present Illness HPI narrative: 64-year-old male brought in by his , reported history of dementia, followed most recent by a [facility] care neurologist in [place], awaiting PET scan evaluation, unclear cause of the dementia, with recent increased agitation at home, anger directed toward who feels that he can not adequately take care of the patient at home. has concerned that the patient might need some kind of memory care placement, or some kind of medical regimen that helps control his agitation, or some kind of other placement situation. No recent illness symptoms, cough, fevers. He did have urinary tract infection 2 weeks ago, completed that course of antibiotics. No injury or trauma known. Not known to take drugs or alcohol. Related Data Home Medications Medication Instructions Recorded Confirmed aspirin 81 mg tablet,delayed 81 mg PO QAM 10/03/20 05/18/24 release (Adult Low Dose Aspirin) Previous Rx's Medication Instructions Recorded quetiapine 25 mg tablet 25 mg PO BID #60 tabs 05/18/24 cefdinir 300 mg capsule 300 mg PO Q12H #20 caps 07/13/24 cephalexin 500 mg capsule 500 mg PO BID 7 days #14 caps 07/13/24 divalproex 125 mg capsule,delayed 125 mg PO TID #90 caps 07/13/24 release sprinkle (Depakote Sprinkles) Allergies Allergy/AdvReac Type Severity Reaction Status Date / Time celecoxib Allergy Severe Anaphylaxis Verified 07/13/24 10:57 Review of Systems <Charles Liang MD - Last Filed: 07/14/24 09:17> Review of Systems Narrative: See HPI Patient History <Charles Liang MD - Last Filed: 07/14/24 09:17> Medical History Sleep apnea Foot pain Chronic back pain Ankle pain History of nonmelanoma skin cancer Chronic anticoagulation History of pulmonary embolism Alzheimer's dementia Surgical History Anesthesia History of knee replacement (~10/2017) History of back surgery (~10/2020) Social History details: ([place]), 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 HEAD: Atraumatic. Normocephalic. EYES: Pupils equal round and reactive. Extraocular motions intact. No scleral icterus. No injection or drainage. ENT: Nose without bleeding, purulent drainage. Throat without erythema, tonsillar hypertrophy or exudate. Airway patent. NECK: Trachea midline. Non tender CARDIOVASCULAR: Regular rate and rhythm without murmurs, gallops, or rubs. RESPIRATORY: Clear to auscultation. Breath sounds equal bilaterally. No wheezes, rales, or rhonchi. GASTROINTESTINAL: Abdomen soft, non-tender, nondistended. EXTREMITIES: No edema or joint tenderness. BACK: Nontender without deformity or crepitance. No flank tenderness. NEURO: Somewhat limited due to patient agitation, he seems frustrated at being here in the department, by being brought here by his . Frequently repeats words with Tunisian short phrases, does seem to answer appropriately yes and no questions. Pupils equal round reactive, extraocular muscles intact, conjugate gaze, no facial droop obvious, quality of the speech Tunisian words noted, no slurred speech, but content often includes frequent repetitive words. Motor 5/5 upper extremities, motor 5/5 lower extremities. SKIN: No rash or erythema of visible areas Initial Vital Signs Initial Vital Signs: Vital Signs Pulse Rate 82 07/12/24 22:32 Respiratory Rate 16 07/12/24 22:32 Blood Pressure 129/76 07/12/24 22:32 Pulse Oximetry 94 07/12/24 22:32 Oxygen Delivery Method Room Air 07/12/24 22:32 <Denia Gutierrez DO - Last Filed: 07/13/24 18:11> Initial Vital Signs Initial Vital Signs: Vital Signs Pulse Rate 82 07/12/24 22:32 Respiratory Rate 16 07/12/24 22:32 Blood Pressure 129/76 07/12/24 22:32 Pulse Oximetry 94 07/12/24 22:32 Oxygen Delivery Method Room Air 07/12/24 22:32 Course <Charles Liang MD - Last Filed: 07/14/24 09:17> Orders Ordered: Discontinued Medications Divalproex Sodium (Divalproex 125 Mg Cap) 125 mg PO NOW ONE Stop: 07/13/24 08:38 Last Admin: 07/13/24 08:52 Dose: 125 mg Documented By: DEEJAY Ceftriaxone Sodium 1,000 mg/ (Sodium Chloride) 100 mls @ 200 mls/hr IV NOW ONE Stop: 07/13/24 09:10 Last Infusion: 07/13/24 09:51 Dose: Infused Documented By: Admin: 07/13/24 09:14 Dose: 200 mls/hr Documented By: DEEJAY Quetiapine Fumarate (Quetiapine 25 Mg Tablet) 25 mg PO NOW ONE Stop: 07/13/24 14:00 Last Admin: 07/13/24 14:03 Dose: 25 mg Documented By: KELLIE Vital Signs Vital signs: Vital Signs - 8 hr 07/13/24 12:27 07/13/24 12:30 07/13/24 15:41 Pulse Rate 65 65 Respiratory Rate 16 17 Blood Pressure 128/83 128/83 131/72 Pulse Oximetry 96 95 Oxygen Delivery Method Room Air Room Air <Denia Gutierrez DO - Last Filed: 07/13/24 18:11> Orders Ordered: Discontinued Medications Divalproex Sodium (Divalproex 125 Mg Cap) 125 mg PO NOW ONE Stop: 07/13/24 08:38 Last Admin: 07/13/24 08:52 Dose: 125 mg Documented By: DEEJAY Ceftriaxone Sodium 1,000 mg/ (Sodium Chloride) 100 mls @ 200 mls/hr IV NOW ONE Stop: 07/13/24 09:10 Last Infusion: 07/13/24 09:51 Dose: Infused Documented By: Admin: 07/13/24 09:14 Dose: 200 mls/hr Documented By: DEEJAY Quetiapine Fumarate (Quetiapine 25 Mg Tablet) 25 mg PO NOW ONE Stop: 07/13/24 14:00 Last Admin: 07/13/24 14:03 Dose: 25 mg Documented By: KELLIE Vital Signs Vital signs: Vital Signs - 8 hr 07/13/24 12:27 07/13/24 12:30 07/13/24 15:41 Pulse Rate 65 65 Respiratory Rate 16 17 Blood Pressure 128/83 128/83 131/72 Pulse Oximetry 96 95 Oxygen Delivery Method Room Air Room Air Medical Decision Making <Charles Liang MD - Last Filed: 07/14/24 09:17> Lab Data Lab results reviewed: Yes I reviewed the patient's lab results. 07/12/24 23:10 07/12/24 23:10 Labs: Lab Results 07/12/24 07/12/24 07/13/24 Range/Units 23:10 23:36 08:35 WBC 5.9 (4.5-11.0) X10^3/uL RBC 4.54 (4.5-5.9) X10^6/uL Hgb 14.4 (13.5-17.5) g/dL Hct 41.6 (41-53) % MCV 91.5 (80-100) fL MCH 31.6 (26-34) PG MCHC 34.6 (30-36) % RDW 13.4 (11.6-14.8) % Plt Count 177 (150-400) X10^3/uL Neut % (Auto) 66.1 (50-75) % Lymph % (Auto) 24.4 L (25-40) % [place] % (Auto) 8.7 (3-14) % Eos % (Auto) 0.4 L (2-4) % Baso % (Auto) 0.4 (0-2) % Neut # (Auto) 3900 (2522-8555) /uL Lymph # (Auto) 1400 (1854-4919) /uL [place] # (Auto) 500 (0-900) /uL Eos # (Auto) 0 (0-450) /uL Baso # (Auto) 0 (0-100) /uL Sodium 138 (137-145) mmol/L Potassium 3.9 (3.4-5.1) mmol/L Chloride 108 H (98-107) mmol/L Carbon Dioxide 26 (22-32) mmol/L BUN 22 H (9-20) mg/dL Creatinine 0.80 (0.66-1.25) mg/dL Estimated GFR > 60 (>60) mL/min BUN/Creatinine Ratio 27.5 H (6-22) Glucose 113 H (80-110) mg/dL Calcium 9.2 (8.4-10.2) mg/dL Total Bilirubin 1.0 (0.2-1.3) mg/dL AST 26 (17-59) IU/L ALT 18 (<50) IU/L Alkaline Phosphatase 68 (38-126) U/L Ammonia < 9 L (9-30) umol/L Total Protein 7.2 (6.3-8.2) g/dL Albumin 4.1 (3.5-5.0) g/dL Globulin 3.1 (1.7-4.1) g/dL Albumin/Globulin Ratio 1.3 (1.0-2.8) Urine Color Yellow Urine Appearance Sl cloudy Urine pH 6.0 (4.5-8.0) Ur Specific [place] >=1.030 H (1.000-1.035) Urine Protein Negative (Negative) Urine Glucose (UA) Negative (Negative) g/dL Urine Ketones Negative (NEGATIVE) Urine Occult Blood Negative (Negative) Urine Nitrate Positive H (Negative) Urine Bilirubin Negative (NEGATIVE) Urine Urobilinogen 1.0 (0.2) E.U./dL Ur Leukocyte Esterase Trace H (NEGATIVE) Urine RBC None seen (0-5/HPF) Urine WBC 5-10/hpf H (0-5/HPF) Ur Squamous Epith Cells None seen (0-5/HPF) Urine Bacteria Many (>30) H (None) Ur Culture Indicated? Specimen cultured Vol Urine Centrifuged 10ml (spun) U Opiates 300ng/mL cut Negative (Negative) Ur Oxycodone Screen Negative (Negative) Urine Methadone Screen Negative (Negative) Ur Barbiturates Screen Negative (Negative) U Tricyclic Antidepress Negative (Negative) Ur Phencyclidine Scrn Negative (Negative) Ur Amphetamines Screen Negative (Negative) U Methamphetamines Scrn Negative (Negative) Ur MDMA Scrn (Ecstasy) Negative (Negative) U Benzodiazepines Scrn Negative (Negative) Urine Cocaine Screen Negative (Negative) U Marijuana (THC) Screen Negative (Negative) Urine Specific [place] (Normal) Ur Creatinine (Normal) SARS-CoV-2 (PCR) (Negative) 07/13/24 Range/Units 08:35 WBC (4.5-11.0) X10^3/uL RBC (4.5-5.9) X10^6/uL Hgb (13.5-17.5) g/dL Hct (41-53) % MCV (80-100) fL MCH (26-34) PG MCHC (30-36) % RDW (11.6-14.8) % Plt Count (150-400) X10^3/uL Neut % (Auto) (50-75) % Lymph % (Auto) (25-40) % [place] % (Auto) (3-14) % Eos % (Auto) (2-4) % Baso % (Auto) (0-2) % Neut # (Auto) (1882-2565) /uL Lymph # (Auto) (2901-7727) /uL [place] # (Auto) (0-900) /uL Eos # (Auto) (0-450) /uL Baso # (Auto) (0-100) /uL Sodium (137-145) mmol/L Potassium (3.4-5.1) mmol/L Chloride (98-107) mmol/L Carbon Dioxide (22-32) mmol/L BUN (9-20) mg/dL Creatinine (0.66-1.25) mg/dL Estimated GFR (>60) mL/min BUN/Creatinine Ratio (6-22) Glucose (80-110) mg/dL Calcium (8.4-10.2) mg/dL Total Bilirubin (0.2-1.3) mg/dL AST (17-59) IU/L ALT (<50) IU/L Alkaline Phosphatase (38-126) U/L Ammonia (9-30) umol/L Total Protein (6.3-8.2) g/dL Albumin (3.5-5.0) g/dL Globulin (1.7-4.1) g/dL Albumin/Globulin Ratio (1.0-2.8) Urine Color Urine Appearance Urine pH Normal (4.5-8.0) Ur Specific [place] (1.000-1.035) Urine Protein (Negative) Urine Glucose (UA) (Negative) g/dL Urine Ketones (NEGATIVE) Urine Occult Blood (Negative) Urine Nitrate (Negative) Urine Bilirubin (NEGATIVE) Urine Urobilinogen (0.2) E.U./dL Ur Leukocyte Esterase (NEGATIVE) Urine RBC (0-5/HPF) Urine WBC (0-5/HPF) Ur Squamous Epith Cells (0-5/HPF) Urine Bacteria (None) Ur Culture Indicated? Vol Urine Centrifuged U Opiates 300ng/mL cut (Negative) Ur Oxycodone Screen (Negative) Urine Methadone Screen (Negative) Ur Barbiturates Screen (Negative) U Tricyclic Antidepress (Negative) Ur Phencyclidine Scrn (Negative) Ur Amphetamines Screen (Negative) U Methamphetamines Scrn (Negative) Ur MDMA Scrn (Ecstasy) (Negative) U Benzodiazepines Scrn (Negative) Urine Cocaine Screen (Negative) U Marijuana (THC) Screen (Negative) Urine Specific [place] Normal (Normal) Ur Creatinine Normal (Normal) SARS-CoV-2 (PCR) Negative (Negative) ECG Data Attestation: I personally reviewed and interpreted this ECG as follows: Interpretation: Normal sinus rhythm with rate of 73, no obvious ST segment elevation or depression changes. T-wave inversion noted in lead 3, flat T-waves lead F, upright in lead 2. [place] 182, QRS 86, QTC 449. MDM Narrative Medical decision making narrative: 64-year-old male with history of dementia, feels that there is increasing agitation toward him, clinical social work aide evaluation for possible memory care unit placement, versus Geropsych placement, versus other disposition plan. Screening labs unremarkable. Recent urine infection status post completion of course antibiotics, re-check UA. Await clinical social work aide consult later this morning. Dr. Gutierrez-patient signed out to me this morning by Dr. Liang I have seen evaluated patient myself. He is awake alert has no complaints he does have some speech stuttering which is apparently normal. He is having some more aggressive behavior and agitation this morning. Depakote Betty ordered waiting for social work evaluation Urinalysis does have nitrates consistent with UTI he has no leukocytes he has afebrile no evidence of sepsis. However UTI may be exacerbating behavior issues. According to utilization reviewed patient does not be observation criteria. Has been made aware. Behavior baby exacerbated by UTI. He is given Rocephin here in the ED Has been reports that he just got over a UTI and finished antibiotics about 1 week ago. Initially was given Keflex however prescription was changed to cefdinir. He still does not meet any sore sepsis criteria he has no leukocytosis or fever. But has a recurrent UTI with nitrates <Denia Gutierrez, DO - Last Filed: 07/13/24 18:11> Lab Data Labs: Lab Results 07/12/24 07/12/24 07/13/24 Range/Units 23:10 23:36 08:35 WBC 5.9 (4.5-11.0) X10^3/uL RBC 4.54 (4.5-5.9) X10^6/uL Hgb 14.4 (13.5-17.5) g/dL Hct 41.6 (41-53) % MCV 91.5 (80-100) fL MCH 31.6 (26-34) PG MCHC 34.6 (30-36) % RDW 13.4 (11.6-14.8) % Plt Count 177 (150-400) X10^3/uL Neut % (Auto) 66.1 (50-75) % Lymph % (Auto) 24.4 L (25-40) % [place] % (Auto) 8.7 (3-14) % Eos % (Auto) 0.4 L (2-4) % Baso % (Auto) 0.4 (0-2) % Neut # (Auto) 3900 (6994-1870) /uL Lymph # (Auto) 1400 (4724-9607) /uL [place] # (Auto) 500 (0-900) /uL Eos # (Auto) 0 (0-450) /uL Baso # (Auto) 0 (0-100) /uL Sodium 138 (137-145) mmol/L Potassium 3.9 (3.4-5.1) mmol/L Chloride 108 H (98-107) mmol/L Carbon Dioxide 26 (22-32) mmol/L BUN 22 H (9-20) mg/dL Creatinine 0.80 (0.66-1.25) mg/dL Estimated GFR > 60 (>60) mL/min BUN/Creatinine Ratio 27.5 H (6-22) Glucose 113 H (80-110) mg/dL Calcium 9.2 (8.4-10.2) mg/dL Total Bilirubin 1.0 (0.2-1.3) mg/dL AST 26 (17-59) IU/L ALT 18 (<50) IU/L Alkaline Phosphatase 68 (38-126) U/L Ammonia < 9 L (9-30) umol/L Total Protein 7.2 (6.3-8.2) g/dL Albumin 4.1 (3.5-5.0) g/dL Globulin 3.1 (1.7-4.1) g/dL Albumin/Globulin Ratio 1.3 (1.0-2.8) Urine Color Yellow Urine Appearance Sl cloudy Urine pH 6.0 (4.5-8.0) Ur Specific [place] >=1.030 H (1.000-1.035) Urine Protein Negative (Negative) Urine Glucose (UA) Negative (Negative) g/dL Urine Ketones Negative (NEGATIVE) Urine Occult Blood Negative (Negative) Urine Nitrate Positive H (Negative) Urine Bilirubin Negative (NEGATIVE) Urine Urobilinogen 1.0 (0.2) E.U./dL Ur Leukocyte Esterase Trace H (NEGATIVE) Urine RBC None seen (0-5/HPF) Urine WBC 5-10/hpf H (0-5/HPF) Ur Squamous Epith Cells None seen (0-5/HPF) Urine Bacteria Many (>30) H (None) Ur Culture Indicated? Specimen cultured Vol Urine Centrifuged 10ml (spun) U Opiates 300ng/mL cut Negative (Negative) Ur Oxycodone Screen Negative (Negative) Urine Methadone Screen Negative (Negative) Ur Barbiturates Screen Negative (Negative) U Tricyclic Antidepress Negative (Negative) Ur Phencyclidine Scrn Negative (Negative) Ur Amphetamines Screen Negative (Negative) U Methamphetamines Scrn Negative (Negative) Ur MDMA Scrn (Ecstasy) Negative (Negative) U Benzodiazepines Scrn Negative (Negative) Urine Cocaine Screen Negative (Negative) U Marijuana (THC) Screen Negative (Negative) Urine Specific [place] (Normal) Ur Creatinine (Normal) SARS-CoV-2 (PCR) (Negative) 07/13/24 Range/Units 08:35 WBC (4.5-11.0) X10^3/uL RBC (4.5-5.9) X10^6/uL Hgb (13.5-17.5) g/dL Hct (41-53) % MCV (80-100) fL MCH (26-34) PG MCHC (30-36) % RDW (11.6-14.8) % Plt Count (150-400) X10^3/uL Neut % (Auto) (50-75) % Lymph % (Auto) (25-40) % [place] % (Auto) (3-14) % Eos % (Auto) (2-4) % Baso % (Auto) (0-2) % Neut # (Auto) (5401-2998) /uL Lymph # (Auto) (0592-7080) /uL [place] # (Auto) (0-900) /uL Eos # (Auto) (0-450) /uL Baso # (Auto) (0-100) /uL Sodium (137-145) mmol/L Potassium (3.4-5.1) mmol/L Chloride (98-107) mmol/L Carbon Dioxide (22-32) mmol/L BUN (9-20) mg/dL Creatinine (0.66-1.25) mg/dL Estimated GFR (>60) mL/min BUN/Creatinine Ratio (6-22) Glucose (80-110) mg/dL Calcium (8.4-10.2) mg/dL Total Bilirubin (0.2-1.3) mg/dL AST (17-59) IU/L ALT (<50) IU/L Alkaline Phosphatase (38-126) U/L Ammonia (9-30) umol/L Total Protein (6.3-8.2) g/dL Albumin (3.5-5.0) g/dL Globulin (1.7-4.1) g/dL Albumin/Globulin Ratio (1.0-2.8) Urine Color Urine Appearance Urine pH Normal (4.5-8.0) Ur Specific [place] (1.000-1.035) Urine Protein (Negative) Urine Glucose (UA) (Negative) g/dL Urine Ketones (NEGATIVE) Urine Occult Blood (Negative) Urine Nitrate (Negative) Urine Bilirubin (NEGATIVE) Urine Urobilinogen (0.2) E.U./dL Ur Leukocyte Esterase (NEGATIVE) Urine RBC (0-5/HPF) Urine WBC (0-5/HPF) Ur Squamous Epith Cells (0-5/HPF) Urine Bacteria (None) Ur Culture Indicated? Vol Urine Centrifuged U Opiates 300ng/mL cut (Negative) Ur Oxycodone Screen (Negative) Urine Methadone Screen (Negative) Ur Barbiturates Screen (Negative) U Tricyclic Antidepress (Negative) Ur Phencyclidine Scrn (Negative) Ur Amphetamines Screen (Negative) U Methamphetamines Scrn (Negative) Ur MDMA Scrn (Ecstasy) (Negative) U Benzodiazepines Scrn (Negative) Urine Cocaine Screen (Negative) U Marijuana (THC) Screen (Negative) Urine Specific [place] Normal (Normal) Ur Creatinine Normal (Normal) SARS-CoV-2 (PCR) Negative (Negative) MDM Narrative Medical decision making narrative: 64-year-old male with history of dementia, feels that there is increasing agitation toward him, clinical social work aide evaluation for possible memory care unit placement, versus [facility] psych placement, versus other disposition plan. Screening labs unremarkable. Recent urine infection status post completion of course antibiotics, check UA. Await clinical social work aide consult later this morning. Dr. Gutierrez-patient signed out to me this morning by Dr. Liang I have seen evaluated patient myself. He is awake alert has no complaints he does have some speech stuttering which is apparently normal. He is having some more aggressive behavior and agitation this morning. Depakote Sprinkles ordered waiting for social work evaluation Urinalysis does have nitrates consistent with UTI he has no leukocytes he has afebrile no evidence of sepsis. However UTI may be exacerbating behavior issues. According to utilization reviewed patient does not be observation criteria. Has been made aware. Behavior baby exacerbated by UTI. He is given Rocephin here in the ED Has been reports that he just got over a UTI and finished antibiotics about 1 week ago. Initially was given Keflex however prescription was changed to cefdinir. He still does not meet any sore sepsis criteria he has no leukocytosis or fever. But has a recurrent UTI with nitrates Discharge Plan Departure Patient Disposition: Home Clinical Impression: Agitation, History of dementia, Acute UTI Instructions: DI for Urinary Tract Infection (UTI) Activity Restrictions/Additional Instructions: *You have been diagnosed with UTI and dementia *What to do: At this time do think behavior might be a little worse than usual due to acute bladder infection. Hopefully has a bladder infection improves the behavior improves as well. Home health and other services have been set up for you with social *Continue to take medications as directed Cefdinir 300 mg twice a day for 10 days ( not cephalexin) Depakote Sprinkles 125 mg 3 times a day---stop taking Seroquel *Follow up with your primary care provider in 2-3 days or call [phone] *Return to ER if you should have increased confusion, weakness or any new, worsening or concerning symptoms Prescriptions: New cephalexin 500 mg capsule 500 mg PO BID 7 Days Qty: 14 0RF cefdinir 300 mg capsule 300 mg PO Q12H Qty: 20 0RF divalproex [Depakote Sprinkles] 125 mg capsule, delayed rel sprinkle 125 mg PO TID Qty: 90 0RF No Action quetiapine 25 mg tablet 25 mg PO BID Qty: 60 1RF aspirin [Adult Low Dose Aspirin] 81 mg Tablet,Delayed Release (Dr/Ec) 81 mg PO QAM Referrals: Noé Victor MD [Primary Care Provider] - Stand Alone Forms: Patient Portal/API
[2024-07-12 23:53] LABS: Ammonia (NH3) < 9 umol/L (9-30)
[2024-07-13] VITALS (10 sets, daily range): BP systolic 128–132; BP diastolic 53–83; PULSE 62–85; RESP 16–18; O2SAT 94–98
--- NOTE | 2024-07-13 01:37 | PC.NURSE ---
Pt up to BR with SBA. Steady gait noted. pt refusing to go to the BR to void. Assisted back to room. Warm blanket provided. Pt's partner Pato left to get some sleep.
--- NOTE | 2024-07-13 03:39 | PC.NURSE ---
Pt up and out of bed opening his door stating that he urinated on himself. Pt changed out of wet clothing. Sheets changed. Pt resettled into bed w a warm blanket. Mild agitation, redirected back into bed. Warm blanket given.
[2024-07-13 08:50] LABS: Appearance Urine UA SL CLOUDY; Bilirubin Urine UA NEGATIVE (NEGATIVE); Color Urine UA YELLOW; Glucose Urine UA NEGATIVE (Negative); Ketones Urine UA NEGATIVE (NEGATIVE); Leukocyte Esterase Urine UA TRACE (NEGATIVE); Nitrite Urine UA POSITIVE (Negative); Occult Blood Urine UA NEGATIVE (Negative); Protein Urine UA NEGATIVE (Negative); Specific Gravity Urine UA >=1.030 (1.000-1.035)
[2024-07-13] MEDS: DIVALPROEX 125 MG CAP PO (08:52)
[2024-07-13 08:55] LABS: Urine Volume 10mL (spun)
[2024-07-13 08:56] LABS: Bacteria Urine Many (>30); Squamous Epithelial Cell Urine None Seen (0-5/HPF)
[2024-07-13 08:57] LABS: Culture Indicated Urine Specimen Cultured; RBC Urine None Seen (0-5/HPF); UR Morphine/Opiate cutoff 300 Negative (Negative); Ur Creatinine Normal (Normal); Ur Specific Gravity Normal (Normal); Urine Amphetamines Negative (Negative); Urine Barbiturates Negative (Negative); Urine Benzodiazepines Negative (Negative); Urine Cocaine Negative (Negative); Urine MDMA Negative (Negative); Urine Methadone Negative (Negative); Urine Methamphetamines Negative (Negative); Urine Oxycodone Negative (Negative); Urine Phencyclidine Negative (Negative); Urine Tetrahydrocannabinol Negative (Negative); Urine Tricyclic Antidepressant Negative (Negative); Urine pH Normal (Normal); WBC Urine 5-10/HPF (0-5/HPF)
[2024-07-13 09:05] LABS: COVID19 -Nasal RAPID Negative (Negative)
[2024-07-13] MEDS: cefTRIAXone 1,000 MG in SODIUM CHLORIDE 0.9% 100 ML 200 MG IV (09:14)
--- NOTE | 2024-07-13 11:59 | PC.NURSE ---
Called [facility] to review chart for possible admission.
[2024-07-13] MEDS: QUETIAPINE 25 MG TABLET PO (14:03)
--- NOTE | 2024-07-13 17:29 | CM.SWNOTE ---
ED ASTROPHYSICS TEACHER Note: Patient is a 64yo male, resident of [place], presented to the ED for agitation and altered mental status. It was found that pt had an acute UTI. Patient has a previous medical history of dementia for about 2.5years. ASTROPHYSICS TEACHER was consulted to assist with possible home health referral vs. assisted living (memory care) referral. Patient's primary care provider is Dr. Noé Victor and insurance is Medicare and [email or web address] ED ASTROPHYSICS TEACHER met with pt's , Pato Cardenas, and discussed pt. Per pt's , they have been attempting to maintain keeping pt at home since dementia diagnosis with hired caregivers. They are on their third caregiver now and she is at 3-days a week ([phone]) with hopes of increasing hours, if pt is cooperative. This weekend, pt became belligerent and was increasingly agitated but other watts manageable with as primary caregiver. Pt's has been taking alot of time off from work for caregiving needs and is hopeful with increasing caregiver hours, can return to work. Per pt's , pt has [facility] at [facility] and they have been attempting to find the right medications to assist with mentation. Per , pt has been having conversations with someone not there this weekend; not identifying any other hallucinations or delusions. ED ASTROPHYSICS TEACHER discussed home health with pt's , provided Medicare choice list to review. F2F signed and orders by ED Provider. ED ASTROPHYSICS TEACHER to send referral to preferred home health agency, determined by pt's . ED ASTROPHYSICS TEACHER discussed a memory day center with pt's . Pt's stated he has toured one in the past and has not explored it further since he has to work and it would not be feasible for him to transport pt during their operating hours ([phone]). ED ASTROPHYSICS TEACHER encouraged pt's to work on a transport schedule with caregiver if interested. ED ASTROPHYSICS TEACHER discussed the [facility]. Pt agreeable to referral. ED ASTROPHYSICS TEACHER sent email to [facility] with pt's facesheet via secure email. ED ASTROPHYSICS TEACHER provided pt's with [facility], Jeannine Goodwin, contact information in case he wants to explore memory care placement further in the future. Plan: Pt to discharge home with to transport, follow up with home health referral (accepting provider pending) and referral to [facility]. ROSALBA Corrigan
== END 2024-07-13 15:47 | disposition home or self-care (01) ==
PROVIDERS: Emergency Medicine; Emergency Provider Emergency Medicine; Family Provider Family Medicine; PCP Internal Medicine
DX: N39.0 Urinary tract infection, site not specified (principal); R45.1 Restlessness and agitation; F03.90 Unspecified dementia, unspecified severity, without behavioral disturbance, psychotic disturbance, mood disturbance, and anxiety; Z11.52 Encounter for screening for COVID-19
CPT/HCPCS: 36415; 71045; 80053; 80305; 81001; 82140; 85025; 87077; 87086; 87186; 87635; 93005; 96365; 99284; J0696

== ENCOUNTER 2024-08-23 18:04 | Emergency (ER) | payer MEDICARE, OTHER, SELFPAY ==
[2024-08-23] VITALS (7 sets, daily range): BP systolic 127–135; BP diastolic 78–85; PULSE 70–76; RESP 16; TEMP 36.5; O2SAT 93–99; BMI 22.4
--- NOTE | 2024-08-23 18:09 | EKG_ITS ---
[place] [id number] [place] [id number] Test Date: 2024-08-23 Pat Name: Robret Valentin Department: [facility] Room: Gender: Male Services Account Manager: DEJAH : 1960 Requested By: Order Number: [id number] Reading MD: Danish Auguste MD Measurements Intervals [place] Rate: 73 P: 35 CT: 196 QRS: 2 QRSD: 90 T: 29 QT: 416 QTc: 458 Interpretive Statements Normal sinus rhythm Inferior infarct , age undetermined Cannot rule out Anterior infarct , age undetermined NO SIGNIFICANT CHANGE FROM PRIOR TRACING Electronically Signed On 08-24-2024 7:33:48 PDT by Danish Auguste MD
--- NOTE | 2024-08-23 18:11 | ED.ABDPAIN ---
HPI - Abdominal Pain General Chief Complaint: Abdominal Pain Stated Complaint: RLQ Pain Time Seen by Provider: 08/23/24 18:11 Source: EMS Mode of arrival: EMS History of Present Illness HPI narrative: 64-year-old male with history of dementia, current resident at [facility], complains of right-sided lower abdominal pain since 3:00 p.m. this afternoon. Acute onset. No injury or trauma new activities. No nausea or vomiting or diarrhea. Denies black or red stools. Denies history of known kidney stones. He has not seem to have pain or discomfort with urination, no frequency of urination. He has not had this before. He believes that he has his appendix and his gallbladder. Does not seem to recognize diagnoses of colitis or diverticulitis or kidney stones. Related Data Home Medications Medication Instructions Recorded Confirmed aspirin 81 mg tablet,delayed 81 mg PO QAM 10/03/20 08/18/24 release (Adult Low Dose Aspirin) Previous Rx's Medication Instructions Recorded nitrofurantoin macrocrystal 100 mg 100 mg PO BEDTIME #90 caps 07/16/24 capsule cefdinir 300 mg capsule 300 mg PO Q12H #20 caps 08/10/24 quetiapine 100 mg tablet 100 mg PO BID #60 tabs 08/10/24 lorazepam 0.5 mg tablet 0.5 mg PO BID #60 tabs 08/13/24 Allergies Allergy/AdvReac Type Severity Reaction Status Date / Time celecoxib Allergy Severe Anaphylaxis Verified 08/23/24 18:09 Review of Systems Review of Systems Narrative: GENERAL: Well-developed patient, in mild distress. HEAD: Atraumatic. Normocephalic. EYES: Pupils equal round and reactive. Extraocular motions intact. No scleral icterus. No injection or drainage. ENT: Nose without bleeding, purulent drainage. Throat without erythema, tonsillar hypertrophy or exudate. Airway patent. NECK: Trachea midline. Non tender CARDIOVASCULAR: Regular rate and rhythm without murmurs, gallops, or rubs. RESPIRATORY: Clear to auscultation. Breath sounds equal bilaterally. No wheezes, rales, or rhonchi. GASTROINTESTINAL: Abdomen soft, non-tender, nondistended. EXTREMITIES: No edema or joint tenderness. BACK: Nontender without deformity or crepitance. No flank tenderness. NEURO: AOx3. 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 HEAD: Atraumatic. Normocephalic. EYES: Pupils equal round and reactive. Extraocular motions intact. No scleral icterus. No injection or drainage. ENT: Nose without bleeding, purulent drainage. Throat without erythema, tonsillar hypertrophy or exudate. Airway patent. NECK: Trachea midline. Non tender CARDIOVASCULAR: Regular rate and rhythm without murmurs, gallops, or rubs. RESPIRATORY: Clear to auscultation. Breath sounds equal bilaterally. No wheezes, rales, or rhonchi. GASTROINTESTINAL: Mild tenderness to right lower quadrant, nondistended, no guarding or rebound tenderness. EXTREMITIES: No edema or joint tenderness. BACK: Nontender without deformity or crepitance. No flank tenderness. NEURO: AOx3. Frequent stuttering but he does seem to be able to at Sir questions and cooperate with history and examination. Motor function grossly nonfocal SKIN: No rash or erythema of visible areas Initial Vital Signs Initial Vital Signs: Vital Signs Pulse Rate 74 08/23/24 18:06 Pulse Oximetry 94 08/23/24 18:06 Course Orders Ordered: ED Orders 08/23/24 18:06 Complete Blood Count AUTO DIFF Stat Comprehensive Metabolic Panel Stat Lipase Stat 08/23/24 18:09 EKG-12 Lead Stat 08/23/24 19:11 CT abdomen pelvis w con Stat Discontinued Medications Sodium Chloride (Normal Saline 0.9%) 1,000 mls @ 1,000 mls/hr IV BOLUS ONE Stop: 08/23/24 20:10 Last Infusion: 08/23/24 20:41 Dose: Infused Documented By: Admin: 08/23/24 19:21 Dose: 1,000 mls/hr Documented By: PATRICIA Ondansetron HCl (Ondansetron 4 Mg/2 Ml Inj) 4 mg IV NOW PRN PRN Reason: Nausea And Vomiting Ondansetron HCl (Ondansetron 4 Mg Odt) 4 mg PO NOW PRN PRN Reason: Nausea And Vomiting Vital Signs Vital signs: Vital Signs - 8 hr 08/23/24 18:06 08/23/24 18:07 08/23/24 18:07 Temperature Pulse Rate 74 73 Respiratory Rate Blood Pressure 130/85 Pulse Oximetry 94 95 Oxygen Delivery Method 08/23/24 18:08 08/23/24 18:30 08/23/24 18:30 Temperature 97.7 F Pulse Rate 70 76 Respiratory Rate 16 Blood Pressure 130/85 127/79 Pulse Oximetry 99 94 Oxygen Delivery Method Room Air Room Air 08/23/24 19:00 08/23/24 19:00 08/23/24 19:30 Temperature Pulse Rate 76 Respiratory Rate Blood Pressure 134/80 135/78 Pulse Oximetry 97 Oxygen Delivery Method 08/23/24 19:30 08/23/24 20:00 Temperature Pulse Rate 71 76 Respiratory Rate Blood Pressure Pulse Oximetry 93 94 Oxygen Delivery Method MDM - Abdominal Pain Lab Data 08/23/24 18:06 08/23/24 18:06 Labs: Lab Results 08/23/24 Range/Units 18:06 WBC 4.8 (4.5-11.0) X10^3/uL RBC 4.58 (4.5-5.9) X10^6/uL Hgb 14.5 (13.5-17.5) g/dL Hct 41.6 (41-53) % MCV 90.8 (80-100) fL MCH 31.6 (26-34) PG MCHC 34.8 (30-36) % RDW 13.5 (11.6-14.8) % Plt Count 176 (150-400) X10^3/uL Neut % (Auto) 59.3 (50-75) % Lymph % (Auto) 28.8 (25-40) % [place] % (Auto) 9.5 (3-14) % Eos % (Auto) 1.7 L (2-4) % Baso % (Auto) 0.7 (0-2) % Neut # (Auto) 2900 (3350-9371) /uL Lymph # (Auto) 1400 (2180-2318) /uL [place] # (Auto) 500 (0-900) /uL Eos # (Auto) 100 (0-450) /uL Baso # (Auto) 0 (0-100) /uL Sodium 135 L (137-145) mmol/L Potassium 3.7 (3.4-5.1) mmol/L Chloride 102 (98-107) mmol/L Carbon Dioxide 26 (22-32) mmol/L BUN 17 (9-20) mg/dL Creatinine 0.93 (0.66-1.25) mg/dL Estimated GFR > 60 (>60) mL/min BUN/Creatinine Ratio 18.3 (6-22) Glucose 88 (80-110) mg/dL Calcium 9.2 (8.4-10.2) mg/dL Total Bilirubin 1.3 (0.2-1.3) mg/dL AST 45 (17-59) IU/L ALT 28 (<50) IU/L Alkaline Phosphatase 70 (38-126) U/L Total Protein 7.4 (6.3-8.2) g/dL Albumin 3.9 (3.5-5.0) g/dL Globulin 3.5 (1.7-4.1) g/dL Albumin/Globulin Ratio 1.1 (1.0-2.8) Lipase 132 (23-300) U/L ECG Data Attestation: I personally reviewed and interpreted this ECG as follows: Interpretation: Normal sinus rhythm with rate of 73, no obvious ST segment elevation or depression changes. CO 196, QRS 90, QTC 458. MDM Narrative Medical decision making narrative: 64-year-old male memory care unit patient with right-sided abdominal pain, mild tenderness right lower quadrant, afebrile, sirs screen negative. Labs screen unremarkable. DDx consider appendicitis, colitis, diverticulitis, adenitis, UTI, ureteral stone, bowel obstruction, other. We discussed advanced abdominal imaging, he was amenable. CT abdomen and pelvis ordered. CT abdomen and pelvis showed no acute abdominopelvic findings, moderate fecal burden noted, no obstructive pattern, rectal stool ball noted. We discussed enema, he had not want an enema here. Consider enema at his care unit if amenable. We discussed MiraLax and or magnesium citrate oral laxatives to try at memory care unit Patient discharged back to memory care unit, return precautions discussed Discharge Plan Departure Patient Disposition: Home Clinical Impression: Abdominal pain, Constipation Activity Restrictions/Additional Instructions: Right-sided abdominal discomfort, lack of normal bowel movement recent days, some tenderness right lower quadrant. CT scan abdomen and pelvis was therefore performed, showing no acute inflammatory changes, no bowel obstruction, but moderate fecal load, consistent with constipation, including a stool ball near the rectal area. We discussed [id number] laxative such as MiraLax. We discussed fleets enema. We offered enema here, declined. Take Tylenol and or Motrin as needed for abdominal discomfort. Drink plenty of fluids. Consider use of enema at your living facility. Return if any change worsening symptoms or not improving in the next couple of days. Prescriptions: No Action lorazepam 0.5 mg tablet 0.5 mg PO BID Qty: 60 2RF quetiapine 100 mg tablet 100 mg PO BID Qty: 60 5RF cefdinir 300 mg capsule 300 mg PO Q12H Qty: 20 0RF nitrofurantoin macrocrystal 100 mg capsule 100 mg PO BEDTIME Qty: 90 3RF Rx Instructions: must administer with a meal/food aspirin [Adult Low Dose Aspirin] 81 mg Tablet,Delayed Release (Dr/Ec) 81 mg PO QAM Referrals: Noé Victor MD [Primary Care Provider] - Stand Alone Forms: Patient Portal/API
[2024-08-23 18:19] LABS: Add Manual Diff / Slide Review NO; Basophils Absolute Auto 0 /uL (0-100); Basophils Percent Auto 0.7 % (0-2); Eosinophils Absolute Auto 100 /uL (0-450); Eosinophils Percent Auto 1.7 % (2-4); Hematocrit 41.6 % (41-53); Hemoglobin 14.5 g/dL (13.5-17.5); Lymphocytes Absolute Auto 1400 /uL (1100-4500); Lymphocytes Percent Auto 28.8 % (25-40); Mean Corpuscular HGB Conc 34.8 % (30-36); Mean Corpuscular Hemoglobin 31.6 PG (26-34); Mean Corpuscular Volume 90.8 fL (80-100); Monocytes Absolute Auto 500 /uL (0-900); Monocytes Percent Auto 9.5 % (3-14); Neutrophils Absolute Auto 2900 /uL (1500-7000); Neutrophils Percent Auto 59.3 % (50-75); Platelet Count 176 X10^3/uL (150-400); Red Blood Cell Count 4.58 X10^6/uL (4.5-5.9); Red Cell Distribution Width 13.5 % (11.6-14.8); White Blood Cell Count 4.8 X10^3/uL (4.5-11.0)
[2024-08-23 18:24] LABS: Alanine Aminotransferase 28 IU/L (<50); Albumin 3.9 g/dL (3.5-5.0); Albumin Globulin Ratio 1.1 (1.0-2.8); Alkaline Phosphatase 70 U/L (38-126); Aspartate Aminotransferase 45 IU/L (17-59); BUN Creatinine Ratio 18.3 (6-22); Bilirubin Total 1.3 mg/dL (0.2-1.3); Blood Urea Nitrogen 17 mg/dL (9-20); Calcium 9.2 mg/dL (8.4-10.2); Carbon Dioxide 26 mmol/L (22-32); Chloride 102 mmol/L (98-107); Estimated Glomerular Filt Rate > 60 mL/min (>60); Globulin 3.5 g/dL (1.7-4.1); Glucose 88 mg/dL (80-110); HEMOLYSIS < 15 (0-50); Lipase 132 U/L (23-300); Potassium 3.7 mmol/L (3.4-5.1); Sodium 135 mmol/L (137-145); Total Protein 7.4 g/dL (6.3-8.2)
--- NOTE | 2024-08-23 19:11 | DI.CT.S_ITS ---
PROCEDURE: CT ABDOMEN PELVIS W CON INDICATIONS: RLQ pain, hx dementia TECHNIQUE: After the administration of intravenous contrast, axial sections acquired from the lung bases to the pubic symphysis. Coronal and sagittal reformats were performed. For radiation dose reduction, the following was used: automated exposure control, adjustment of mA and/or kV according to patient size. COMPARISON: None. FINDINGS: Image quality: Diagnostic. Lower Chest: Small hiatal hernia. ABDOMEN: Liver: No solid mass. Gallbladder: No radiopaque gallstones or wall thickening. Biliary ducts: No biliary dilation. Pancreas: No ductal dilation. Spleen: Size is within normal limits. Adrenal Glands: No adrenal nodules. Kidneys and Ureters: No hydronephrosis. No solid mass. No complex renal cystic lesion which requires follow up. Stomach and Bowel: Normal colonic caliber, without significant wall thickening. Large colonic stool load. Short segment narrowing at the rectosigmoid junction (series 2, image 76), without adjacent adenopathy. Peritoneum: No abnormal intraperitoneal fluid. No free air. Ventral Wall: No significant ventral hernia. Abdominal Nodes: No retroperitoneal or mesenteric adenopathy by size criteria. Vessels: Aorta and inferior vena cava are normal in size. PELVIS: Pelvic Organs: Unremarkable. Bladder: No bladder wall thickening, accounting for underdistention. Pelvic Nodes: No enlarged lymph nodes. Miscellaneous: No inguinal hernias are seen. Bones: No aggressive osseous abnormality. Surgical fusion the left SI joint and posterior surgical fusion of the thoracolumbar spine. Vertebral body height loss of L1, possibly due to prominent Schmorl's node. IMPRESSION: Large rectal stool load. Short segment of narrowing of the rectosigmoid junction, without associated adenopathy. Findings could represent haustral contraction versus malignancy. Consider outpatient colonoscopy, if not up-to-date. Dictated by: Asim Roa M.D. on 08/23/2024 at 20:21 Approved by: Asim Roa M.D. on 08/23/2024 at 20:26
[2024-08-23] MEDS: SODIUM CHLORIDE 0.9% 1,000 ML 1000 ML IV (19:21)
--- NOTE | 2024-08-23 19:51 | PC.NURSE ---
Pt refusing EKG at this time.
== END 2024-08-23 21:42 | disposition home or self-care (01) ==
PROVIDERS: Emergency Provider Emergency Medicine; Family Provider Family Medicine; PCP Internal Medicine
DX: R10.31 Right lower quadrant pain (principal); K59.00 Constipation, unspecified; F03.90 Unspecified dementia, unspecified severity, without behavioral disturbance, psychotic disturbance, mood disturbance, and anxiety
CPT/HCPCS: 74177; 80053; 83690; 85025; 93005; 93010; 96360; 99283; 99284